=== PATIENT | male | born 1940 | race Caucasian/White ===

== ENCOUNTER → 2020-04-21 | Outpatient (CLI) | payer MEDICARE, OTHER ==
[~2020-04-21] MED LIST: ACET-683 PO; AMLO1TAB24 PO; ASPI81TA26 PO; D 50CAP3 PO; FURO40TA2 PO; ISOVUE-300 61% 50ML VIAL As Ordered ONE; LIDOCAINE 1% MDV 20ML VIAL As Ordered ONE; METO25TA4 PO; MIDAZOLAM INJ 2MG/2ML VIAL (J2250 PER 1MG) As Ordered ONE; fentaNYL 100 MCG/2 ML INJECTION (J3010) As Ordered ONE
--- NOTE | 2020-04-21 16:39 | ROOPDOC ---
[facility] Report Of Operation Report of Operation DATE OF PROCEDURE: 04/21/20 PREPROCEDURE DIAGNOSES: End-stage renal disease with increased pulsatility and bleeding left upper extremity brachial basilic AV fistula POSTPROCEDURE DIAGNOSES: Same PROCEDURE: 1. Ultrasound-guided access left basilic vein 2. Left upper extremity fistulogram and central venogram 3. Angioplasty left basilic vein and subclavian vein pre-existing stent with 8 x 20 cutting balloon and 9 x 40 [place] balloon 4. Angioplasty left subclavian vein pre-existing stent with 10 x 40 conquest balloon 5. Completion venogram SURGEON: Issa Enrique MD ANESTHESIA: Local anesthesia with 3 mL lidocaine. Moderate intravenous conscious sedation with administered by Dr. Enrique. The patient was independently monitored by registered nurse assigned to the Department of radiology using auto mated blood pressure, EKG, and pulse oximetry. The detailed sedation record is permanently stored in the hospital information system. The following is a brief sedation record: Start time 15:42, stop time 16:18, Versed 0.5 mg IV, fentanyl 50 g IV CONTRAST: 38 mL Isovue-300 INDICATION FOR PROCEDURE: This is a very pleasant 80-year-old gentleman with end-stage renal disease who increased pulsatility and bleeding times after dialysis with his left upper extremity brachial basilic AV fistula. Risks benef its alternatives to a fistulogram potential intervention were explained to the patient needs agreeable to proceed. Informed consent was obtained. INTERPRETATION: 1. Ultrasound confirmed the AV anastomosis is widely patent. 2. 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 There is one focal area of stenosis, approximately 70% stenosis distal to one of the aneurysmal segments in the mid upper arm. Proximal to this in the basilic and axillary vein, there is no significant stenosis. There is an 80% stenosis within the pre-existing left subclavian stent, and otherwise the central veins are widely patent. 3. After angioplasty of the subclavian stent and the basilic vein with a 8 x 20 cutting balloon, there was less than 20% residual stenosis in the basilic vein and 60% residual stenosis in the subclavian vein. No extravasation was noted. 4. After angioplasty of both areas with a 9 x 40 [place] balloon, there is widely patent inflow through the basilic vein with no significant residual stenosis in no extravasation, and there was an improvement inflow through the left subclavian vein but still about 30-40% residual stenosis. 5. After angioplasty of the cephalic vein with a 10 x 40 high-pressure conquest balloon at high pressures for 3 minutes, there was less than 20% residual stenosis in the subclavian vein stent with widely patent flow and a marked improvement in thrill in the fistula. Position was noted. REPORT OF OPERATION: The patient was brought to the angiographic suite in stable condition. His left upper extremity was prepped and draped in a sterile fashion. A timeout was performed. Local anesthesia was administered to skin and subcutaneous tissue over the left basilic vein. Ultrasound was used to examine t he AV anastomosis and it was found to be widely patent. We then gained access to the basilic vein antegrade fashion with a microneedle under ultrasound guidance. A wire was passed through this access the needle was removed and a 4 Gambian sheath was placed and flushed with saline. A fistulogram and central venogram were performed. Please interpretation above. A Glidewire was advanced through this access in the central system and the sheath was exchanged for some Gambian sheath and flushed with saline. A Gleich cath was placed over the wire and the wire was exchanged for a 018 wire. We then advanced an 8 x 20 cutting balloon first to cross the subclavian stent in multiple inflations were performed. Contrast injection revealed some improvement inflow with some residual stenosis as described above, but no extravasation. We then angioplasty with the balloon in the basilic vein at the area stenosis, and there is a marked improvement inflow. Still some residual stenosis was present, no extravasation. We then exchange the balloon for 9 x 40 [place] balloon. Both areas had a three-minute inflations, multiple inflations across the subclavian. Following this there was no significant residual stenosis in the basilic vein with a marked rapid improvement inflow, but there is still some residual stenosis in subclavian vein. We exchange the balloon therefore for a 10 x 40 conquest balloon and high-pressure three-minute inflations was performed with a marked improvement inflow through the subclavian vein, no significant residual stenosis, no extravasation, and a marked improvement in thrill in the fistula. This concluded the procedure. A [id number] Prolene suture was placed at the sheath after anesthetizing with local anesthesia, and the suture was secured is the sheath was removed for good hemostasis. Pressure was held for a few minutes and sterile dressings were applied. The patient was then taken to recovery in stable condition. He tolerated the procedure and the sedation well. ESTIMATED BLOOD LOSS: Approximately 5 mL. COMPLICATIONS: None. PLAN: It is okay to use the fistula for dialysis. Okay to resume home diet medications. Would like to see the patient back in 3 months to check his fistula. We appreciate the opportunity to participate in the care of this patient. ISSA ENRIQUE MD Apr 21, 2020 16:39
[2020-04-21 16:45] VITALS: BP 163/63
== END ==
LOC: M IRPRO 14:49
PROVIDERS: ATTEND Surgery Vascular Surgery
DX: T82.590A Other mechanical complication of surgically created arteriovenous fistula, initial encounter (principal); N18.6 End stage renal disease; I12.0 Hypertensive chronic kidney disease with stage 5 chronic kidney disease or end stage renal disease; X58.XXXA Exposure to other specified factors, initial encounter; Z79.82 Long term (current) use of aspirin; Z79.899 Other long term (current) drug therapy; Z99.2 Dependence on renal dialysis
CPT/HCPCS: 36902; 99152; 99153; C1725; C1769; C1887; C1894; J1644; J2250; J3010; Q9967

== ENCOUNTER 2020-10-03 16:45 | Inpatient (IN) | payer MEDICARE, OTHER ==
[~2020-10-03] VITALS: Ht 172.7 cm; Wt 82.8 kg
[~2020-10-03 16:45] MED LIST changes: -ISOVUE-300 61% 50ML VIAL As Ordered ONE; -LIDOCAINE 1% MDV 20ML VIAL As Ordered ONE; -MIDAZOLAM INJ 2MG/2ML VIAL (J2250 PER 1MG) As Ordered ONE; -fentaNYL 100 MCG/2 ML INJECTION (J3010) As Ordered ONE
[2020-10-03] MEDS ORDERED: ROBI1CAP PO (17:15)
[2020-10-03] MEDS ORDERED: MUCI30TA5 PO (17:15)
[2020-10-03 17:26] LABS: VENOUS BASE EXCESS 6.5 (-2.0-2.0); VENOUS HCO3 32.2 MEQ/L (23.0-27.0); VENOUS O2 SATURATION 60.3 % (60.0-80.0); VENOUS PARTIAL PRESSURE CO2 52.5 mmHg (38.0-50.0); VENOUS PARTIAL PRESSURE O2 32.3 mmHg (30.0-50.0); VENOUS PH 7.405 UNITS (7.330-7.430); VENOUS STANDARD HCO3 29.7 MEQ/L; VENOUS TOTAL CO2 33.8 MEQ/L (24.0-28.0)
[2020-10-03 17:29] LABS: BASO % 0.1 % (0.0-1.0); EOS # 0.1 10^3/uL (0.0-0.5); EOS % 0.7 % (0.0-3.0); LYMPH % 8.8 % (24.0-44.0); MEAN CORPUSCULAR HEMOGLOBIN 31.8 pg (27.0-33.0); MEAN CORPUSCULAR VOLUME 102.5 fl (80.0-96.0); MONO % 8.9 % (2.0-8.0); NEUTROPHILS # 9.1 10^3/uL (1.5-8.5); NEUTROPHILS % 81.1 % (36.0-66.0); PLATELET COUNT, AUTOMATED 173 10^3/uL (150-450); RED BLOOD COUNT 2.83 10^6/uL (4.30-6.10); WHITE BLOOD COUNT 11.2 10^3/uL (4.0-10.0)
[2020-10-03] MEDS ORDERED: ALBUTEROL 90 MCG/ACT 8GM HFA INHALER INH ONE (17:30)
--- NOTE | 2020-10-03 17:47 | REP ---
INDICATION: DYSPNEA/COUGH COMPARISON: None. TECHNIQUE: Portable AP view of the chest FINDINGS: Evidence for prior sternotomy and CABG lung lam demonstrate chronic interstitial changes. Basilar atelectasis cannot be excluded. Stent graft overlies the left apex. IMPRESSION: Chronic changes. Possible basilar atelectasis. <Electronically signed by Jonathan Chinchilla > 10/03/20 [id number]
[2020-10-03 17:48] LABS: INR 1.35
[2020-10-03 18:40] LABS: RSV AMPLIFICATION NEGATIVE (NEGATIVE)
[2020-10-03] MEDS ORDERED: cefTRIAXone SOD 1 GM in D5W MINI-BAG PLUS 50 ML IV ONE (18:50)
[2020-10-03] MEDS ORDERED: AZITHROMYCIN INJ 500 MG, VIAL MATE ADAPTER 1 EACH in NS 250 ML IV ONE (18:50)
[2020-10-03] MEDS ORDERED: TUMS500C PO (19:37)
[2020-10-03] MEDS ORDERED: [UNRECOGNIZED DRUG - CODE] PO (19:37)
[2020-10-03] MEDS ORDERED: ROBILIQ13 PO (19:38)
[2020-10-03] MEDS ORDERED: IPRATROPIUM 0.5MG/ALBUTEROL 2.5MG INH SOL UD 3ML (DUONEB) INH PRN (20:15)
[2020-10-03 20:22] LABS: ALBUMIN 3.4 GM/DL (3.2-5.2); BILIRUBIN,DIRECT 0.3 MG/DL (0.0-0.2); BILIRUBIN,TOTAL 0.9 MG/DL (0.2-1.0); CALCIUM LEVEL 8.3 MG/DL (8.8-10.2); CK-MB VALUE MASS 1.4 NG/ML (<3.6); CREATININE FOR GFR 3.54 MG/DL (0.70-1.30); GLOMERULAR FILTRATION RATE 17.7 (>35); MB/CK RELATIVE INDEX 1.26 (< OR =4); POTASSIUM SERUM 3.3 MEQ/L (3.5-5.1); TOTAL PROTEIN 7.6 GM/DL (6.4-8.2); TROPONIN I 0.03 NG/ML (< 0.10)
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
[2020-10-03] MEDS: HumaLOG INSULIN (NovoLOG) PER UNIT SC SCH (21:00)
[2020-10-03] MEDS ORDERED: GLUCOSE 4GM CHEW TABLET PO PRN (21:25)
[2020-10-03] MEDS ORDERED: GLUCAGON INJ 1MG VIAL SC PRN (21:25)
[2020-10-03] MEDS ORDERED: DEXTROSE 50% 50 ML SYRINGE IV PRN (21:25)
[2020-10-03] MEDS: METOPROLOL TART 25 MG TABLET PO SCH (22:48)
[2020-10-03] MEDS: HEPARIN SOD (PORCINE) 5000UNITS/ML 1ML VIAL/SYRINGE SC SCH (22:49)
[2020-10-03 23:31] VITALS: O2SAT 94
[2020-10-04] VITALS (7 sets, daily range): BP systolic 102–104; BP diastolic 58–92; O2SAT 92–94
[2020-10-04] MEDS: IPRATROPIUM 0.5MG/ALBUTEROL 2.5MG INH SOL UD 3ML (DUONEB) INH SCH ×7 (03:12→23:52)
[2020-10-04] MEDS: HEPARIN SOD (PORCINE) 5000UNITS/ML 1ML VIAL/SYRINGE SC SCH ×3 (05:18→20:37)
[2020-10-04 06:40] LABS: BASO % 0.1 % (0.0-1.0); EOS # 0.1 10^3/uL (0.0-0.5); EOS % 0.9 % (0.0-3.0); HEMATOCRIT 25.3 % (42.0-52.0); HEMOGLOBIN 7.9 g/dl (13.5-17.5); LYMPH % 11.2 % (24.0-44.0); MEAN CORPUSCULAR HEMOGLOBIN 32.2 pg (27.0-33.0); MEAN CORPUSCULAR HGB CONC 31.2 g/dl (32.0-36.5); MEAN CORPUSCULAR VOLUME 103.3 fl (80.0-96.0); MONO # 0.9 10^3/uL (0.0-0.8); NEUTROPHILS # 6.9 10^3/uL (1.5-8.5); NEUTROPHILS % 77.2 % (36.0-66.0); PLATELET COUNT, AUTOMATED 148 10^3/uL (150-450); RED BLOOD COUNT 2.45 10^6/uL (4.30-6.10)
[2020-10-04 07:08] LABS: CALCIUM LEVEL 7.9 MG/DL (8.8-10.2); CREATININE FOR GFR 4.31 MG/DL (0.70-1.30); GLOMERULAR FILTRATION RATE 14.1 (>35); MAGNESIUM LEVEL 2.1 MG/DL (1.8-2.4); PHOSPHORUS LEVEL 2.6 MG/DL (2.5-4.9); POTASSIUM SERUM 2.9 MEQ/L (3.5-5.1)
[2020-10-04] MEDS: HumaLOG INSULIN (NovoLOG) PER UNIT SC SCH ×5 (07:30→21:48)
[2020-10-04] MEDS: METOPROLOL TART 25 MG TABLET PO SCH ×2 (08:12→20:36)
[2020-10-04] MEDS: ASPIRIN 81MG ENTERIC TABLET PO SCH (08:29)
[2020-10-04] MEDS: CALCIUM CARBONATE 500 MG CHEW U/D PO SCH ×3 (08:29→18:20)
[2020-10-04] MEDS ORDERED: POTASSIUM CHLORIDE 10 MEQ SR TABLET PO ONE (08:30)
[2020-10-04] MEDS: DOXYCYCLINE HYCLATE 100 MG in D5W MINI-BAG PLUS 100 ML IV SCH ×2 (08:30→21:47)
[2020-10-04] MEDS ORDERED: PREVNAR 13 VACCINE SYRINGE IM ONE (09:00)
[2020-10-04] MEDS ORDERED: predniSONE 20 MG TAB PO SCH (09:00)
[2020-10-04] MEDS ORDERED: FUROSEMIDE 40 MG TAB PO SCH (09:00)
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
--- NOTE | 2020-10-04 16:29 | IPNPDOC ---
Date Seen The patient was seen on 10/04/20. Progress Note SUBJECTIVE: No acute events overnight. Wheezy this AM, started on IV steroids for COPD flare. Denies increased shortness of breath, chest pain, fevers or chills. Discussed with nephrology. OBJECTIVE: PHYSICAL EXAMINATION: VITAL SIGNS: see below GENERAL: Alert, comfortable, in no acute distress HEENT: Normocephalic, atraumatic, PERRLA, sclera anicteric, conjunctiva clear, moist oral mucosa NECK: Supple, trachea midline, no lymphadenopathy, no elevated JVD appreciated CARDIOVASCULAR: Regular rate and rhythm, normal S1 and S2. No murmurs, rubs, or gallops RESPIRATORY: Lung sounds are decreased throughout with diffuse end expiratory wheezing and scattered rhonchi. ABDOMEN: Soft, nontender, nondistended, bowel sounds present, no masses or hepatosplenomegaly appreciated EXTREMITIES: No cyanosis or edema. Pulses 2+/4 in bilateral upper and lower extremities SKIN: Red raised lesions on the right frontal region of the scalp which is nontender, cool to touch, and without any surround erythema or drainage. Skin over bilateral shins is very dry and flaky. NEUROLOGIC: Alert and oriented x3 to person, place and time. No focal deficits appreciated PSYCHIATRIC: Mood and affect appropriate LABORATORY DATA: See below. IMAGING: CXR : Evidence for prior sternotomy and CABG lung lam demonstrate chronic interstitial changes. basilar atelectasis cannot be excluded. Stent graft overlies the left apex. MICROBIOLOGY: Please see below. ASSESSMENT: 80 year old male with PMHx of COPD with recurrent PNA, CAD s/p CABG, ESRD on HD, HTN, diabetes mellitus, atriall fibrillation, pacemaker placement, and blindness, presents with 1 week history of worsening congestion, productive cough, chills, and shortness of breath concerning for pneumonia with exacerbation of COPD. PLAN: Acute hypoxic respiratory failure secondary to ? community aquired pneumonia vs COPD exacerbation vs decompensated HF - CXR shows atelectasis which could represent PNA. Procalcitonin elevated at >2. - Elevated BNP could be attributed to ESRD, no effusions on CXR, and patient does not appear to be volume overloaded on exam so CHF is less likely - Abx coverage for CAP with ceftriaxone and doxycycline. Sputum culture ordered, blood cultures x2 pending. - Check urine legionella ag and strep pneumonia ag - Duonebs q4h while awake with additional PRN doses available. Incentive spirometry and acapella. COPD with acute exacerbation - Increased wheezing today - Switched from PO prednisone to IV methylprednisolone 60 mg IV Q12 H, c/w nebulizers ATC and PRN - Recommend o/p testing HFpEF with ? exacerbation -BNP >82K, no prior ones on file to compare. -No prior echocardiogram on file -Stopped lasix as patient is HD/ESRD, ordered echocardiogram- f/u report and involve cards if necessary -Trop neg -C/w BB BID ESRD on HD - S/p HD 10/03/09 - Follows [facility] schedule - Nephrology consulted , case discussed with Dr. Caballero today Acute hypokalemia -Replaced 50 mEq -Repeat BMP this evening, replace PRN -Daily labs HTN - continue home medications Diabetes mellitus - controlled with HD, not on any home medications - consistent carb diet, SSI ACHS while inpatient - hypoglycemic protocol Skin lesion on right temporal scalp - pt has history of skin cancer with new lesion, needs to establish with o utpatient local production corrugator for biopsy/excision DVT prophylaxis: SC heparin DISPOSITION: Inpatient admission. Nephrology consulted. Will need PT/OT, plan is for home at discharge VS, I&O, 24H, Fishbone Vital Signs/I&O Vital Signs Date Time Temp Pulse Resp B/P (MAP) Pulse Ox O2 Delivery O2 Flow Rate FiO2 10/04/20 15:45 98.3 65 19 104/59 (74) 100 Nasal Cannula 2.0 10/04/20 03:13 36 I&O- Last 24 Hours up to 6 AM 10/04/20 06:00 Intake Total 905 ml Output Total 0 ml Balance 905 ml Laboratory Data 24H LABS Laboratory Tests 2 10/03/20 17:16: Prothrombin Time 17.0H, Prothromb Time International Ratio 1.35, Blood Gas Bicarbonate Standard 29.7, Venous Blood pH 7.405, Venous Blood Partial Pressure CO2 52.5H, Venous Blood Partial Pressure O2 32.3, Venous Blood Total Carbon Dioxide 33.8H, Venous Blood HCO3 32.2H, Venous Blood Oxygen Saturation 60.3, Venous Blood Base Excess 6.5H, Anion Gap 7L, Glomerular Filtration Rate 17.7L, Lactic Acid Level 1.9, Calcium Level 8.3L, Total Bilirubin 0.9, Direct Bilirubin 0.3H, Aspartate Amino Transf (AST/SGOT) 13, Alanine Aminotransferase (ALT/SGPT) 11L, Alkaline Phosphatase 93, Total Creatine Kinase 111, Creatine Kinase MB 1.4, Creatine Kinase MB Relative Index 1.26, Troponin I 0.03, EB-Tax-M-Type Natriuretic Peptide 71088R, Total Protein 7.6, Albumin 3.4, Albumin/Globulin Ratio 0.8 10/03/20 17:17: Immature Granulocyte % (Auto) 0.4, Neutrophils (%) (Auto) 81.1H, Lymphocytes (%) (Auto) 8.8L, Monocytes (%) (Auto) 8.9H, Eosinophils (%) (Auto) 0.7, Basophils (%) (Auto) 0.1, Neutrophils # (Auto) 9.1H, Lymphocytes # (Auto) 1.0L, Monocytes # (Auto) 1.0H, Eosinophils # (Auto) 0.1, Basophils # (Auto) 0.0, Nucleated Red Blood Cells % (auto) 0.0 10/03/20 17:39: Coronavirus (COVID-19)(PCR) NEGATIVE, Influenza Type A (RT-PCR) NEGATIVE, Influenza Type B (RT-PCR) NEGATIVE, Respiratory Syncytial Virus (PCR) NEGATIVE 10/03/20 21:02: Procalcitonin 2.53 10/03/20 22:25: Bedside Glucose (Misc Panel) 171H 10/04/20 05:53: Immature Granulocyte % (Auto) 0.6, Neutrophils (%) (Auto) 77.2H, Lymphocytes (%) (Auto) 11.2L, Monocytes (%) (Auto) 10.0H, Eosinophils (%) (Auto) 0.9, Basophils (%) (Auto) 0.1, Neutrophils # (Auto) 6.9, Lymphocytes # (Auto) 1.0L, Monocytes # (Auto) 0.9H, Eosinophils # (Auto) 0.1, Basophils # (Auto) 0.0, Nucleated Red Blood Cells % (auto) 0.0, Anion Gap 9, Glomerular Filtration Rate 14.1L, Calcium Level 7.9L, Phosphorus Level 2.6, Magnesium Level 2.1 CBC/BMP Laboratory Tests 10/03/20 17:16 10/03/20 17:17 10/04/20 05:53 Microbiology Microbiology 10/04/20 Gram Stain - Final, Resulted 10/04/20 Sputum Culture, Resulted Pending 10/03/20 Blood Culture, Received Pending 10/03/20 Blood Culture, Received Pending Current Medications Current Medications Medications (Trade) Dose Ordered Sig/Elvin Route PRN Reason Start Time Stop Time Status Last Admin Dose Admin Acetaminophen (Tylenol Tab) 650 mg Q4H PRN PO PAIN OR FEVER 10/03/20 20:15 Albuterol/ Ipratropium (Duoneb (Ipr 0.5mg/Alb 2.5mg)) 3 ml Q2H PRN INH WHEEZING 10/03/20 20:15 Albuterol/ Ipratropium (Duoneb (Ipr 0.5mg/Alb 2.5mg)) 3 ml RQ4H INH 10/04/20 00:00 10/04/20 11:26 Amlodipine Besylate (Norvasc) 2.5 mg QHS PO 10/03/20 21:00 10/04/20 11:46 DC 10/03/20 22:48 Aspirin (Ecotrin) 81 mg DAILY PO 10/04/20 09:00 10/04/20 08:29 Calcium Carbonate (Tums) 500 mg PC PO 10/04/20 08:30 10/04/20 08:29 Ceftriaxone Sodium 1 gm/ Dextrose 50 ml @ 100 mls/hr Q24H IV 10/04/20 20:00 Dextrose (Dextrose 50%) 25 ml ASDIRECTED PRN IV SEE LABEL COMMENTS 10/03/20 21:25 Doxycycline Hyclate 100 mg/ Dextrose 100 ml @ 100 mls/hr Q12H IV 10/04/20 08:00 10/04/20 08:30 Furosemide (Lasix) 40 mg BID@0900,1700 PO 10/04/20 09:00 10/04/20 08:22 DC Glucagon (Glucagon) 1 mg ASDIRECTED PRN SC SEE LABEL COMMENTS 10/03/20 21:25 Glucose (Glucose) 16 GM ASDIRECTED PRN PO SEE LABEL COMMENTS 10/03/20 21:25 Heparin Sodium (Porcine) (Heparin) 5,000 units Q8H SC 10/03/20 22:00 10/04/20 16:08 Home Med (Med Rec Complete!) ASDIRECTED XX 10/03/20 19:40 10/03/20 19:40 DC Insulin Human Lispro (HumaLOG INSULIN) SEE PROTOCOL TABLE AC SC 10/04/20 07:30 10/04/20 07:30 Insulin Human Lispro (HumaLOG INSULIN) SEE PROTOCOL TABLE QHS SC 10/03/20 21:00 Methylprednisolone (SOLUmedrol) 60 mg Q12H IV 10/04/20 21:00 Metoprolol Tartrate (Lopressor) 25 mg BID PO 10/03/20 21:00 10/03/20 22:48 Prednisone (Deltasone) 40 mg DAILY PO 10/04/20 09:00 10/04/20 09:26 DC 10/04/20 08:29 Allergies Coded Allergies: No Known Allergies (Unverified , 04/13/20) Marjan Pendleton MD Oct 04, 2020 16:29
[2020-10-04 18:47] LABS: CALCIUM LEVEL 8.3 MG/DL (8.8-10.2); CREATININE FOR GFR 2.37 MG/DL (0.70-1.30); GLOMERULAR FILTRATION RATE 28.1 (>35); POTASSIUM SERUM 4.3 MEQ/L (3.5-5.1)
[2020-10-04] MEDS ORDERED: cefTRIAXone SOD 1 GM in D5W MINI-BAG PLUS 50 ML IV SCH (20:00)
[2020-10-04] MEDS: methylPREDNISolone 125MG 2ML VIAL IV SCH (20:35)
--- NOTE | 2020-10-05 03:09 | ECGEPIP ---
[facility] - ED Test Date: 2020-10-03 Pat Name: OSCAR RIVERA Department: Room: [place] [address] Gender: Male [employer]: ty : 1940 Requested By: ULISES Pan Order Number: [id number] Reading MD: Ulises Alfred Measurements Intervals [place] Rate: 72 P: AL: QRS: 40 QRSD: 92 T: -79 QT: 432 QTc: 473 Interpretive Statements Accelerated Junctional rhythm ST & Marked T wave abnormality, consider anterolateral ischemia Prolonged QTc interval Comparison tracing not on file Baseline artifact Electronically Signed on 10-05-2020 3:08:41 EST by Ulises Alfred
[2020-10-05] MEDS: IPRATROPIUM 0.5MG/ALBUTEROL 2.5MG INH SOL UD 3ML (DUONEB) INH SCH ×6 (04:10→23:23)
[2020-10-05 06:00] VITALS: BP 112/60
[2020-10-05] MEDS: HEPARIN SOD (PORCINE) 5000UNITS/ML 1ML VIAL/SYRINGE SC SCH ×3 (06:30→21:28)
[2020-10-05] MEDS: ACETAMINOPHEN TAB 650MG DOSE (2X325MG) PO PRN ×2 (06:30→21:29)
[2020-10-05] MEDS: METOPROLOL TART 25 MG TABLET PO SCH ×2 (06:31→21:00)
[2020-10-05] MEDS: CALCIUM CARBONATE 500 MG CHEW U/D PO SCH ×3 (06:31→17:31)
[2020-10-05] MEDS: ASPIRIN 81MG ENTERIC TABLET PO SCH (06:31)
[2020-10-05 07:07] LABS: HEMATOCRIT 27.1 % (42.0-52.0); HEMOGLOBIN 8.3 g/dl (13.5-17.5); MEAN CORPUSCULAR HEMOGLOBIN 31.9 pg (27.0-33.0); MEAN CORPUSCULAR HGB CONC 30.6 g/dl (32.0-36.5); MEAN CORPUSCULAR VOLUME 104.2 fl (80.0-96.0); PLATELET COUNT, AUTOMATED 155 10^3/uL (150-450); WHITE BLOOD COUNT 7.3 10^3/uL (4.0-10.0)
[2020-10-05 07:35] LABS: ALBUMIN 3.3 GM/DL (3.2-5.2); BILIRUBIN,TOTAL 0.9 MG/DL (0.2-1.0); CALCIUM LEVEL 8.7 MG/DL (8.8-10.2); CREATININE FOR GFR 3.56 MG/DL (0.70-1.30); GLOMERULAR FILTRATION RATE 17.6 (>35); POTASSIUM SERUM 4.1 MEQ/L (3.5-5.1); TOTAL PROTEIN 7.6 GM/DL (6.4-8.2)
[2020-10-05] MEDS: HumaLOG INSULIN (NovoLOG) PER UNIT SC SCH ×4 (08:54→21:00)
[2020-10-05] MEDS: DOXYCYCLINE HYCLATE 100 MG in D5W MINI-BAG PLUS 100 ML IV SCH (08:58)
[2020-10-05] MEDS: methylPREDNISolone 125MG 2ML VIAL IV SCH ×2 (08:58→21:29)
[2020-10-05] MEDS ORDERED: LEVEMIR (INSULIN DETEMIR) 1 UNITS/0.01ML SC SCH (09:00)
[2020-10-05] MEDS: DARBEPOETIN 100 MCG/0.5 ML *DIALYSIS* SYRINGE (J0882) IV SCH (12:26)
[2020-10-05 15:03] VITALS: BP 109/61
--- NOTE | 2020-10-05 15:46 | IPNPDOC ---
Date Seen The patient was seen on 10/05/20. Progress Note SUBJECTIVE: No acute events overnight. Wheezing improved, S/p HD 10/04 and likely to go again today. Feels lethargic this AM but labs do not look worsened. Denies increased shortness of breath, chest pain, fevers or chills. Discussed with nephrology. OBJECTIVE: PHYSICAL EXAMINATION: VITAL SIGNS: see below GENERAL: Alert, comfortable, in no acute distress HEENT: Normocephalic, atraumatic, PERRLA, sclera anicteric, conjunctiva clear, moist oral mucosa NECK: Supple, trachea midline, no lymphadenopathy, no elevated JVD appreciated CARDIOVASCULAR: Regular rate and rhythm, normal S1 and S2. No murmurs, rubs, or gallops RESPIRATORY: Lung sounds are decreased throughout, no wheezing today on exam- improving ABDOMEN: Soft, nontender, nondistended, bowel sounds present, no masses or hepat osplenomegaly appreciated EXTREMITIES: No cyanosis or edema. Pulses 2+/4 in bilateral upper and lower extremities SKIN: Red raised lesions on the right frontal region of the scalp which is nontender, cool to touch, and without any surround erythema or drainage. Skin over bilateral shins is very dry and flaky. NEUROLOGIC: Alert and oriented x3 to person, place and time. No focal deficits appreciated PSYCHIATRIC: Mood and affect appropriate LABORATORY DATA: See below. IMAGING: CXR : Evidence for prior sternotomy and CABG lung lam demonstrate chronic interstitial changes. basilar atelectasis cannot be excluded. Stent graft overlies the left apex. MICROBIOLOGY: Please see below. ASSESSMENT: 80 year old male with PMHx of COPD with recurrent PNA, CAD s/p CABG, ESRD on HD, HTN, diabetes mellitus, atriall fibrillation, pacemaker placement, and blindness, presents with 1 week history of worsening congestion, productive cough, chills, and shortness of breath concerning for pneumonia with exacerbation of COPD. PLAN: Acute hypoxic respiratory failure likely MF to community aquired pneumonia vs COPD exacerbation vs decompensated HF - CXR shows atelectasis which could represent PNA. Procalcitonin elevated at >2. - Elevated BNP could be attributed to ESRD, no effusions on CXR, and patient does not appear to be volume overloaded on exam so CHF is less likely - Abx coverage for CAP with ceftriaxone and doxycycline. Sputum culture ordered, blood cultures x2 pending. - Check urine legionella ag and strep pneumonia ag - Duonebs q4h while awake with additional PRN doses available. Incentive spirometry and acapella. COPD with acute exacerbation - Improved breathing, no wheezing on exam today - IV methylprednisolone 60 mg IV Q12 H, likely can deescalate on 10/06/20 if continues to show improvement, c/w nebulizers ATC and PRN - Recommend o/p testing HFpEF with ? exacerbation -S/p back to back HD sessions -BNP >82K, no prior ones on file to compare. -F/u echocardiogram -Stopped lasix as patient is HD/ESRD -Trop neg -C/w BB BID ESRD on HD - S/p HD 10/04/09, likely to go again today - Follows [facility] schedule - Nephrology consulted , case discussed with Dr. Caballero Acute hypokalemia -K wnl this AM -Repeat BMP this evening, replace PRN -Daily labs HTN - continue home medications Diabetes mellitus -BS uncontrolled -Started on levemir 8 U QAM - consistent carb diet, SSI ACHS while inpatient - hypoglycemic protocol Skin lesion on right temporal scalp - pt has history of skin cancer with new lesion, needs to establish with outpatient local stripper printed circuit boards for biopsy/excision DVT prophylaxis: SC heparin DISPOSITION: Inpatient status, nephrology consulted. PT/OT to see. Plan is likely home at discharge. VS, I&O, 24H, Fishbone Vital Signs/I&O Vital Signs Date Time Temp Pulse Resp B/P (MAP) Pulse Ox O2 Delivery O2 Flow Rate FiO2 10/05/20 07:46 3.0 10/05/20 06:31 60 112/60 10/05/20 06:00 98.4 20 96 Nasal Cannula 10/04/20 19:55 36 I&O- Last 24 Hours up to 6 AM 10/05/20 06:00 Intake Total 1250 ml Output Total 3020 ml Balance -1770 ml Laboratory Data 24H LABS Laboratory Tests 2 10/04/20 16:28: Bedside Glucose (Misc Panel) 167H 10/04/20 17:39: Anion Gap 5L, Glomerular Filtration Rate 28.1L, Calcium Level 8.3L 10/04/20 20:35: Bedside Glucose (Misc Panel) 259H 10/05/20 06:45: Anion Gap 11, Glomerular Filtration Rate 17.6L, Calcium Level 8.7L, Nucleated Red Blood Cells % (auto) 0.0, Total Bilirubin 0.9, Aspartate Amino Transf (AST/SGOT) 10, Alanine Aminotransferase (ALT/SGPT) 10L, Alkaline Phosphatase 84, Total Protein 7.6, Albumin 3.3, Albumin/Globulin Ratio 0.8 10/05/20 14:28: Bedside Glucose (Misc Panel) 146H CBC/BMP Laboratory Tests 10/04/20 17:39 10/05/20 06:45 Microbiology Microbiology 10/04/20 Gram Stain - Final, Resulted 10/04/20 Sputum Culture - Preliminary, Resulted Yeast Like Organism 10/03/20 Blood Culture - Preliminary, Resulted No growth after 24 hours . All specim... 10/03/20 Blood Culture - Preliminary, Resulted No growth after 24 hours . All specim... Current Medications Current Medications Medications (Trade) Dose Ordered Sig/Elvin Route PRN Reason Start Time Stop Time Status Last Admin Dose Admin Acetaminophen (Tylenol Tab) 650 mg Q4H PRN PO PAIN OR FEVER 10/03/20 20:15 10/05/20 06:30 Albuterol/ Ipratropium (Duoneb (Ipr 0.5mg/Alb 2.5mg)) 3 ml Q2H PRN INH WHEEZING 10/03/20 20:15 Albuterol/ Ipratropium (Duoneb (Ipr 0.5mg/Alb 2.5mg)) 3 ml RQ4H INH 10/04/20 00:00 10/05/20 15:18 Amlodipine Besylate (Norvasc) 2.5 mg QHS PO 10/03/20 21:00 10/04/20 11:46 DC 10/03/20 22:48 Aspirin (Ecotrin) 81 mg DAILY PO 10/04/20 09:00 10/05/20 06:31 Calcium Carbonate (Tums) 500 mg PC PO 10/04/20 08:30 10/05/20 14:36 Ceftriaxone Sodium 1 gm/ Dextrose 50 ml @ 100 mls/hr Q24H IV 10/04/20 20:00 10/05/20 09:33 DC 10/04/20 20:35 Darbepoetin Rikki (Aranesp (Dialysis Use)) 100 mcg HD IV 10/05/20 11:55 10/05/20 12:26 Dextrose (Dextrose 50%) 25 ml ASDIRECTED PRN IV SEE LABEL COMMENTS 10/03/20 21:25 Doxycycline Hyclate (Vibramycin) 100 mg BID@0600,2000 PO 10/05/20 20:00 Doxycycline Hyclate 100 mg/ Dextrose 100 ml @ 100 mls/hr Q12H IV 10/04/20 08:00 10/05/20 09:33 DC 10/05/20 08:58 Furosemide (Lasix) 40 mg BID@0900,1700 PO 10/04/20 09:00 10/04/20 08:22 DC Glucagon (Glucagon) 1 mg ASDIRECTED PRN SC SEE LABEL COMMENTS 10/03/20 21:25 Glucose (Glucose) 16 GM ASDIRECTED PRN PO SEE LABEL COMMENTS 10/03/20 21:25 Heparin Sodium (Porcine) (Heparin) 5,000 units Q8H SC 10/03/20 22:00 10/05/20 14:36 Home Med (Med Rec Complete!) ASDIRECTED XX 10/03/20 19:40 10/03/20 19:40 DC Insulin Detemir (Levemir Insulin) 8 units QAM SC 10/05/20 09:00 10/05/20 08:54 Insulin Human Lispro (HumaLOG INSULIN) SEE PROTOCOL TABLE AC SC 10/04/20 07:30 10/05/20 08:54 Insulin Human Lispro (HumaLOG INSULIN) SEE PROTOCOL TABLE QHS MO 10/03/20 21:00 10/04/20 21:48 Methylprednisolone (SOLUmedrol) 60 mg Q12H IV 10/04/20 21:00 10/05/20 08:58 Metoprolol Tartrate (Lopressor) 25 mg BID PO 10/03/20 21:00 10/03/20 22:48 Prednisone (Deltasone) 40 mg DAILY PO 10/04/20 09:00 10/04/20 09:26 DC 10/04/20 08:29 Allergies Coded Allergies: No Known Allergies (Unverified , 04/13/20) Marjan Pendleton MD Oct 05, 2020 15:46
[2020-10-05] MEDS: ONDANSETRON 4 MG TAB PO SCH (17:31)
[2020-10-05 20:01] VITALS: O2SAT 94
[2020-10-05 21:00] VITALS: O2SAT 93
[2020-10-05] MEDS: DOXYCYCLINE HYCLATE 100MG TABLET PO SCH (21:30)
[2020-10-05 22:00] VITALS: BP 104/62
[2020-10-06] MEDS: IPRATROPIUM 0.5MG/ALBUTEROL 2.5MG INH SOL UD 3ML (DUONEB) INH SCH ×5 (03:59→20:52)
[2020-10-06 06:00] VITALS: BP 115/84
[2020-10-06 06:23] LABS: HEMATOCRIT 30.4 % (42.0-52.0); HEMOGLOBIN 9.3 g/dl (13.5-17.5); MEAN CORPUSCULAR HEMOGLOBIN 32.2 pg (27.0-33.0); MEAN CORPUSCULAR HGB CONC 30.6 g/dl (32.0-36.5); MEAN CORPUSCULAR VOLUME 105.2 fl (80.0-96.0); PLATELET COUNT, AUTOMATED 213 10^3/uL (150-450); RED BLOOD COUNT 2.89 10^6/uL (4.30-6.10); WHITE BLOOD COUNT 12.1 10^3/uL (4.0-10.0)
[2020-10-06] MEDS: HEPARIN SOD (PORCINE) 5000UNITS/ML 1ML VIAL/SYRINGE SC SCH ×3 (06:43→21:31)
[2020-10-06 06:44] LABS: ALBUMIN 3.5 GM/DL (3.2-5.2); BILIRUBIN,TOTAL 0.5 MG/DL (0.2-1.0); CALCIUM LEVEL 9.2 MG/DL (8.8-10.2); CREATININE FOR GFR 3.49 MG/DL (0.70-1.30); POTASSIUM SERUM 4.6 MEQ/L (3.5-5.1); TOTAL PROTEIN 7.8 GM/DL (6.4-8.2)
[2020-10-06] MEDS: DOXYCYCLINE HYCLATE 100MG TABLET PO SCH (06:44)
[2020-10-06] MEDS: ONDANSETRON 4 MG TAB PO SCH ×4 (06:44→18:14)
[2020-10-06] MEDS: ASPIRIN 81MG ENTERIC TABLET PO SCH (08:06)
[2020-10-06] MEDS: CALCIUM CARBONATE 500 MG CHEW U/D PO SCH ×3 (08:06→18:14)
[2020-10-06] MEDS: METOPROLOL TART 25 MG TABLET PO SCH ×2 (08:07→21:31)
[2020-10-06] MEDS: methylPREDNISolone 125MG 2ML VIAL IV SCH ×3 (08:07→19:29)
[2020-10-06] MEDS: HumaLOG INSULIN (NovoLOG) PER UNIT SC SCH ×4 (08:08→21:00)
--- NOTE | 2020-10-06 08:10 | IPN ---
PROGRESS NOTE DATE: 10/05/2020 SUBJECTIVE: Mr. Jackson is seen this morning on his bedside. He is sitting in the chair today and reports feeling much better. He was dialyzed yesterday and we took off about 3 liters of fluid with dialysis yesterday. His cough is still persistent, but much improved. His dyspnea has improved and he denies any fever or chills. He has no nausea or vomiting. PHYSICAL EXAMINATION: VITALS: Temperature 98.4 degrees Fahrenheit, heart rate 60 per minute, respiratory rate 20 per minute, blood pressure 112/60 mmHg and oxygen saturation 96%. HEENT: Head atraumatic. Neck supple and JVD is improved, but still elevated. LUNGS: Bibasilar rales, much improved compared to yesterday. HEART: Sounds are irregular in rhythm. ABDOMEN: Soft and nontender. Bowel sounds are normal. EXTREMITIES: Without any cyanosis or clubbing. AV fistula on left arm is patent. LABORATORY DATA: Today's labs show WBC 7.3, hemoglobin 8.3, hematocrit 27, platelets 155,000. Sodium 135, potassium 4.1, CO2 23, BUN 26, creatinine 3.56. Calcium level 8.7. PROBLEMS: 1. Shortness of breath and cough: Most likely related to a combination of chronic lung disease and volume overload. 3 liters of fluid was removed yesterday with dialysis and volume status has improved significantly. Will plan to remove another 2 liters today. 2. End-stage renal disease: Patient is regularly dialyzed on Friday, and Friday schedule. Yesterday he had an extra dialysis due to volume overload. He will be dialyzed again today. 3. Anemia: His anemia is related to end-stage renal disease. At this point, he does not need any emergent transfusion, but we will monitor closely and give him one dose of Aranesp 100 mcg today.
--- NOTE | 2020-10-06 08:44 | REP ---
INDICATION: incr SOB COMPARISON: 10/03/2020 TECHNIQUE: PA and lateral. FINDINGS: Mediastinum is stable. Lower lobe airspace disease with possible small pleural reactions are suspected. No pneumothorax. Skeletal structures stable. IMPRESSION: Lower lobe airspace disease and small pleural reactions suggested. <Electronically signed by Jonathan Chinchilla > 10/06/20 0838
[2020-10-06] MEDS: LEVEMIR (INSULIN DETEMIR) 1 UNITS/0.01ML SC SCH (09:07)
[2020-10-06 10:05] LABS: ABG BASE EXCESS -4.4 (-2.0-2.0); ABG HCO3 20.4 MEQ/L (22.0-26.0); ABG O2 SATURATION 98.2 % (95.0-99.0); ABG PARTIAL PRESSURE CO2 36.5 mmHg (35.0-45.0); ABG PARTIAL PRESSURE O2 110.6 mmHg (75.0-100.0); ABG STANDARD HCO3 20.8 MEQ/L (22.0-26.0); ABG TOTAL CO2 21.6 MEQ/L (23.0-31.0); ABG pH (ARTERIAL) 7.366 UNITS (7.350-7.450)
[2020-10-06 10:20] VITALS: BP 116/57
[2020-10-06 10:45] LABS: TROPONIN I 0.04 NG/ML (< 0.10)
--- NOTE | 2020-10-06 11:41 | ECHO ---
DATE OF PROCEDURE: 10/04/2020 Age: 80 Gender: Male Height: 68 inches Weight: 185 pounds Body surface area: 1.98 m2 PATIENT LOCATION: Inpatient, Room 5135. REFERRING PHYSICIAN: Meseret Caballero M.D. INDICATION: Heart failure. MEASUREMENTS: 2D Measurements: RV 4.4 cm LV 5.3 cm Septum 1.3 cm Posterior wall 1.3 cm Aortic Root 3.6 cm LA 4.9 cm LVEF 55-65% Doppler Measurements: AV 1.43 m/s LVOT 0.63 m/s MV-E 135 Early mitral deceleration time 156 msec E prime medial 7.9, E prime lateral 10.2 Average E/E prime ratio 14.9/PCWP 20.4 mmHg PV 0.6 m/s Pulmonary artery acceleration time 92 msec RVSP at least 49 mmHg IVC Could not be visualized COMMENTS: Underlying atrial fibrillation/flutter with consistent ventricular paced rhythm. Paced QRS complexes with LBBB configuration. Somewhat technically challenging study in light of the patients body habitus, but diagnostically useful information was still obtained. M-mode and two-dimensional echocardiography was performed with pulse, continuous wave, color flow, and tissue Doppler studies. Mild symmetrical left ventricular hypertrophy with septal wall motion abnormality due to right ventricle pacing, yet preserved global resting systolic function. Moderately dilated left atrium with elevated estimated mean left atrial pressure. At least mildly dilated right ventricle with normal wall motion. Doppler estimated pulmonary arterial pressure would be at least moderately severely increased. Moderately dilated right atrium, but could not visualize his inferior vena cava to further estimate central venous pressure (we estimated his right ventricle systolic pressure using a standard of 10 mmHg for central venous pressure). Normal aortic dimensions. Mild aortic valvular sclerosis with adequate cusp separation, but premature cusp closure suggestive of a reduced forward stroke volume. No evidence of aortic insufficiency. Moderate degenerative changes of the mitral valve apparatus with adequate leaflet excursion and no posterior systolic buckling. No inflow tract obstruction, but at least mild and possibly moderate insufficiency. Normal appearing tricuspid valve with moderate insufficiency. Pacing lead could be visualized traversing right heart structures, but no separate intracardiac mass. No pericardial effusion. MTDD
[2020-10-06 14:00] VITALS: BP 112/55
--- NOTE | 2020-10-06 14:21 | IPNPDOC ---
Date Seen The patient was seen on 10/06/20. Progress Note SUBJECTIVE: Increased SOB this AM, ABG showed pH wnl, O2 adequate. 90% on 4 L NC, increased over 24 hours. HAs had three days of HD, no s/s of worsening fluid overload. Repeat CXR now worsened. Increased methylprednisolone as he sounds increasingly tight, wheezy. Witnessed possible apneic episodes this AM during exam. Also complaining of increased chest tightness at times, pleuritic pain with coughing and deep breathing. Denies chest pain, fevers or chills. OBJECTIVE: PHYSICAL EXAMINATION: VITAL SIGNS: see below GENERAL: appeared more SOB this AM, lethargic but still Ox3 HEENT: Normocephalic, atraumatic, PERRLA, sclera anicteric, conjunctiva clear, moist oral mucosa NECK: Supple, trachea midline, no lymphadenopathy, no elevated JVD appreciated CARDIOVASCULAR: Regular rate and rhythm, normal S1 and S2. No murmurs, rubs, or gallops RESPIRATORY: Wheezing this AM, decreased breath sounds b/l. No crackles, rhonchi. ABDOMEN: Soft, nontender, nondistended, bowel sounds present, no masses or hepatosplenomegaly appreciated EXTREMITIES: No cyanosis or edema. Pulses 2+/4 in bilateral upper and lower extremities SKIN: Red raised lesions on the right frontal region of the scalp which is nontender, cool to touch, and without any surround erythema or drainage. Skin over bilateral shins is very dry and flaky. NEUROLOGIC: Alert and oriented x3 to person, place and time. No focal deficits appreciated LABORATORY DATA: See below. IMAGING: Echocardiogram: EF 65% Underlying atrial fibrillation/flutter with consistent ventricular paced rhythm.Paced QRS complexes with LBBB configuration. Somewhat technically challenging study in light of the patients body habitus, but diagnostically useful information was still obtained. M-mode and two-dimensional echocardiography was performed with pulse, continuouswave, color flow, and tissue Doppler studies. Mild symmetrical left ventricular hypertrophy with septal wall motion abnormality due to right ventricle pacing, yet preserved global resting systolicfunction. Moderately dilated left atrium with elevated estimated mean left atrial pressure. At least mildly dilated right ventricle with normal wall motion. Doppler estimated pulmonary arterial pressure would be at least moderately severely increased. Moderately dilated right atrium, but could not visualize his inferior vena cava to further estimate central venous pressure (we estimated his right ventricle systolic pressure using a standard of 10 mmHg for central venous pressure). Normal aortic dimensions. Mild aortic valvular sclerosis with adequate cusp separation, but premature cuspclosure suggestive of a reduced forward stroke volume. No evidence of aortic insufficiency. Moderate degenerative changes of the mitral valve apparatus with adequate leaflet excursion and no posterior systolic buckling. No inflow tract obstruction, but at least mild and possibly moderate insufficiency. Normal appearing tricuspid valve with moderate insufficiency. Pacing lead could be visualized traversing right heart structures, but no separate intracardiac mass. No pericardial effusion. CXR 10/06/20: Lower lobe airspace disease and small pleural reactions suggested. CXR : Evidence for prior sternotomy and CABG lung lam demonstrate chronic interstitial changes. basilar atelectasis cannot be excluded. Stent graft overlies the left apex. MICROBIOLOGY: Please see below. ASSESSMENT: 80 year old male with PMHx of COPD with recurrent PNA, CAD s/p CABG, ESRD on HD, HTN, diabetes mellitus, atriall fibrillation, pacemaker placement, and blindness, presents with 1 week history of worsening congestion, productive cough, chills, and shortness of breath concerning for pneumonia with exacerbation of COPD. PLAN: Acute hypoxic respiratory failure likely MF to community acquired pneumonia, COPD exacerbation and decompensated HF -Increased O2 requirements at 4 L NC, ABG showed pH wnl -If continues to decompensate, consider repeat COVID test, CTA chest -Treatment of individual issues below CAP -WBC elevated at 12.1; however, likely steroid induced -Procalcitonin elevated at >2 -Repeat CXR does not show concern for persistent PNA -Sputum cx: mod yeast -On PO levofloxacin COPD with acute exacerbation - Wheezing on exam today, more decreased breath sounds - IV methylprednisolone 60 mg IV q8H, c/w nebulizers ATC and PRN - Recommend o/p testing HFpEF with ? exacerbation -S/p back to back HD sessions x 3 -BNP >82K--> 75,700 -Echo above -Stopped lasix as patient is HD/ESRD -Trop neg -C/w BB BID ESRD on HD - S/p HD x3 days in a row - Follows [facility] schedule - Nephrology following Acute hypokalemia -K wnl this AM -Repeat BMP this evening, replace PRN -Daily labs HTN - continue home medications Diabetes mellitus -BS better controlled -C/w levemir 12 U QAM, consistent carb diet, SSI ACHS, hypoglycemic protocol Skin lesion on right temporal scalp - pt has history of skin cancer with new lesion, needs to establish with outpatient local steam plant operator for biopsy/excision DVT prophylaxis: SC heparin DISPOSITION: Inpatient status, nephrology consulted. PT/OT to see. Plan is likely home at discharge. VS, I&O, 24H, Fishbone Vital Signs/I&O Vital Signs Date Time Temp Pulse Resp B/P (MAP) Pulse Ox O2 Delivery O2 Flow Rate FiO2 10/06/20 10:20 98.0 75 18 116/57 (76) 89 Nasal Cannula 4.0 10/05/20 20:01 36 I&O- Last 24 Hours up to 6 AM 10/06/20 06:00 Intake Total 1420 ml Output Total 2500 ml Balance -1080 ml Laboratory Data 24H LABS Laboratory Tests 2 10/05/20 14:28: Bedside Glucose (Misc Panel) 146H 10/05/20 16:55: Bedside Glucose (Misc Panel) 303H 10/05/20 20:46: Bedside Glucose (Misc Panel) 146H 10/06/20 05:26: Nucleated Red Blood Cells % (auto) 0.0, Anion Gap 8, Glomerular Filtration Rate 18.0L, Calcium Level 9.2, Total Bilirubin 0.5, Aspartate Amino Transf (AST/SGOT) 14, Alanine Aminotransferase (ALT/SGPT) 17, Alkaline Phosphatase 101, Total Protein 7.8, Albumin 3.5, Albumin/Globulin Ratio 0.8 10/06/20 09:41: Blood Gas Bicarbonate Standard 20.8L, Arterial Blood pH 7.366, Arterial Blood Partial Pressure CO2 36.5, Arterial Blood Partial Pressure O2 110.6H, Arterial Blood Total CO2 21.6L, Arterial Blood HCO3 20.4L, Arterial Blood Base Excess - 4.4L, Arterial Blood Oxygen Saturation 98.2 10/06/20 09:47: Troponin I 0.04, RR-[id number]-Type Natriuretic Peptide 17030J 10/06/20 12:04: Bedside Glucose (Misc Panel) 137H CBC/BMP Laboratory Tests 10/06/20 05:26 Microbiology Microbiology 10/04/20 Gram Stain - Final, Complete 10/04/20 Sputum Culture - Final, Complete Yeast Like Organism 10/03/20 Blood Culture - Preliminary, Resulted No Growth after 48 hours. All Specime... 3/9/21 Blood Culture - Preliminary, Resulted No Growth after 48 hours. All Specime... Marjan Pendleton MD Oct 06, 2020 14:21
[2020-10-06] MEDS ORDERED: LevoFLOXacin 250 MG TABLET PO SCH (18:00)
[2020-10-06] MEDS ORDERED: LevoFLOXacin 750 MG TABLET PO ONE (18:00)
--- NOTE | 2020-10-06 20:19 | IPN ---
NEPHROLOGY PROGRESS NOTE DATE: 10/06/2020 SUBJECTIVE: Mr. Jackson is seen this morning on his bedside. He has just been transferred to telemetry bed this morning due to some chest discomfort and persistent cough. He reports that he had an episode of cough for about one-half hour, as he was feeling a lump in his chest. His symptoms are much better now. He has been dialyzed two days in a row with about 5500 mL fluid removal. He denies any nausea or vomiting. There is no fever or chills. PHYSICAL EXAMINATION: Temperature 98 degrees Fahrenheit, heart rate 75 per minute, respiratory rate 18 per minute, blood pressure 116/57 mmHg, oxygen saturation between 89-100%. He is on 3-4 liters oxygen. HEAD: Atraumatic. There is no oral thrush or ulcers. NECK: Supple and jugular venous distention (JVD) is still prominent. HEART SOUNDS: Regular at present. LUNGS: Bibasilar crepitus. ABDOMEN: Soft and nontender. Bowel sounds are normal. EXTREMITIES: Without any cyanosis or clubbing. Left arm arteriovenous (AV) fistula is patent. NEUROLOGIC: He is awake and at his baseline mentation without focal deficits. LABORATORY STUDIES: Today's labs show WBC 12.1, hemoglobin 9.3, hematocrit 30.4, platelets 213. Sodium 138, potassium 4.6, BUN 36, creatinine 3.49. His BNP level is still 75,742 and troponin 0.04. PROBLEMS: 1. End-stage renal disease. Patient was dialyzed yesterday and will be scheduled for next dialysis tomorrow. Electrolytes are within normal range. 2. Cough and shortness of breath. We have removed 5.5 liters of fluid over the last couple of days with dialysis. We will remove another 3.3 liters of fluid with dialysis tomorrow. His BNP level is significantly elevated and we will see how it improves. 3. Anemia. His anemia has improved since we took off a significant amount of fluid. No other intervention is needed. 4. Recurrent cough. Etiology is uncertain. His sputum did show moderate yeast-like organisms. I am not sure if he has any fungal infiltrate.
[2020-10-06 22:00] VITALS: BP 114/51
[2020-10-07] MEDS: IPRATROPIUM 0.5MG/ALBUTEROL 2.5MG INH SOL UD 3ML (DUONEB) INH SCH ×7 (00:31→23:29)
[2020-10-07] MEDS: ONDANSETRON 4 MG TAB PO SCH ×4 (01:18→18:26)
[2020-10-07] MEDS: methylPREDNISolone 125MG 2ML VIAL IV SCH ×3 (04:53→21:01)
[2020-10-07] MEDS ORDERED: SODIUM CHLORIDE 0.9% 1000ML IV PRN (05:40)
[2020-10-07] MEDS ORDERED: LIDOCAINE 1% SDV 5ML VIAL SC PRN (05:40)
[2020-10-07 06:00] VITALS: BP 130/67
[2020-10-07] MEDS: CALCIUM CARBONATE 500 MG CHEW U/D PO SCH ×3 (06:33→18:26)
[2020-10-07] MEDS: ASPIRIN 81MG ENTERIC TABLET PO SCH (06:34)
[2020-10-07] MEDS: HEPARIN SOD (PORCINE) 5000UNITS/ML 1ML VIAL/SYRINGE SC SCH ×3 (06:34→21:02)
[2020-10-07] MEDS: METOPROLOL TART 25 MG TABLET PO SCH ×2 (06:34→21:00)
[2020-10-07 06:43] LABS: HEMATOCRIT 30.2 % (42.0-52.0); HEMOGLOBIN 9.3 g/dl (13.5-17.5); MEAN CORPUSCULAR HEMOGLOBIN 32.2 pg (27.0-33.0); MEAN CORPUSCULAR HGB CONC 30.8 g/dl (32.0-36.5); MEAN CORPUSCULAR VOLUME 104.5 fl (80.0-96.0); PLATELET COUNT, AUTOMATED 208 10^3/uL (150-450); RED BLOOD COUNT 2.89 10^6/uL (4.30-6.10); WHITE BLOOD COUNT 10.7 10^3/uL (4.0-10.0)
[2020-10-07 07:08] LABS: ALBUMIN 3.2 GM/DL (3.2-5.2); BILIRUBIN,TOTAL 0.4 MG/DL (0.2-1.0); CALCIUM LEVEL 8.9 MG/DL (8.8-10.2); CREATININE FOR GFR 5.09 MG/DL (0.70-1.30); GLOMERULAR FILTRATION RATE 11.6 (>35); POTASSIUM SERUM 5.7 MEQ/L (3.5-5.1); TOTAL PROTEIN 7.3 GM/DL (6.4-8.2)
[2020-10-07] MEDS: HumaLOG INSULIN (NovoLOG) PER UNIT SC SCH ×4 (07:43→21:00)
[2020-10-07] MEDS: LEVEMIR (INSULIN DETEMIR) 1 UNITS/0.01ML SC SCH (07:43)
[2020-10-07 14:00] VITALS: BP 90/38
--- NOTE | 2020-10-07 17:13 | IPNPDOC ---
Date Seen The patient was seen on 10/07/20. Progress Note SUBJECTIVE: Low BP after HD ;however, improved later in day. Episode of confusion after waking up from nap but this also improved upon more time awake. No change in mental status otherwise, remains on 4 L NC with less wheezing today. Chest pain only with coughing which is likely MSK. Denies chest pain, fevers or chills. OBJECTIVE: PHYSICAL EXAMINATION: VITAL SIGNS: see below GENERAL: appeared more SOB this AM, lethargic but still Ox3 HEENT: Normocephalic, atraumatic, PERRLA, sclera anicteric, conjunctiva clear, moist oral mucosa NECK: Supple, trachea midline, no lymphadenopathy, no elevated JVD appreciated CARDIOVASCULAR: Regular rate and rhythm, normal S1 and S2. No murmurs, rubs, or gallops RESPIRATORY: mild wheezing- improving, decreased breath sounds b/l. No crackles, rhonchi. ABDOMEN: Soft, nontender, nondistended, bowel sounds present, no masses or hepatosplenomegaly appreciated EXTREMITIES: No cyanosis or edema. Pulses 2+/4 in bilateral upper and lower extremities SKIN: Red raised lesions on the right frontal region of the scalp which is nontender, cool to touch, and without any surround erythema or drainage. Skin over bilateral shins is very dry and flaky. NEUROLOGIC: Alert and oriented x3 to person, place and time. No focal deficits appreciated LABORATORY DATA: See below. IMAGING: Echocardiogram: EF 65% Underlying atrial fibrillation/flutter with consistent ventricular paced rhythm.Paced QRS complexes with LBBB configuration. Somewhat technically challenging study in light of the patients body habitus, but diagnostically useful information was still obtained. M-mode and two-dimensional echocardiography was performed with pulse, continuouswave, color flow, and tissue Doppler studies. Mild symmetrical left ventricular hypertrophy with septal wall motion abnormality due to right ventricle pacing, yet preserved global resting systolicfunction. Moderately dilated left atrium with elevated estimated mean left atrial pressure. At least mildly dilated right ventricle with normal wall motion. Doppler estimated pulmonary arterial pressure would be at least moderately severely increased. Moderately dilated right atrium, but could not visualize his inferior vena cava to further estimate central venous pressure (we estimated his right ventricle systolic pressure using a standard of 10 mmHg for central venous pressure). Normal aortic dimensions. Mild aortic valvular sclerosis with adequate cusp separation, but premature cuspclosure suggestive of a reduced forward stroke volume. No evidence of aortic insufficiency. Moderate degenerative changes of the mitral valve apparatus with adequate leaflet excursion and no posterior systolic buckling. No inflow tract obstruction, but at least mild and possibly moderate insufficiency. Normal appearing tricuspid valve with moderate insufficiency. Pacing lead could be visualized traversing right heart structures, but no separate intracardiac mass. No pericardial effusion. CXR 10/06/20: Lower lobe airspace disease and small pleural reactions suggested. CXR : Evidence for prior sternotomy and CABG lung lam demonstrate chronic interstitial changes. basilar atelectasis cannot be excluded. Stent graft overlies the left apex. MICROBIOLOGY: Please see below. ASSESSMENT: 80 year old male with PMHx of COPD with recurrent PNA, CAD s/p CABG, ESRD on HD, HTN, diabetes mellitus, atriall fibrillation, pacemaker placement, and blindness, presents with 1 week history of worsening congestion, productive cough, chills, and shortness of breath concerning for pneumonia with exacerbation of COPD. PLAN: Acute hypoxic respiratory failure likely multifactorial to community acquired pneumonia, COPD exacerbation and decompensated HF -Still requiring 4 L NC, less wheezy today -If continues to decompensate, consider repeat COVID test, CTA chest -Treatment of individual issues below CAP -WBC 10.7; however, likely steroid induced -Procalcitonin elevated at >2 -Repeat CXR does not show concern for persistent PNA -Sputum cx: mod yeast -On PO levofloxacin COPD with acute exacerbation - Wheezing improved on exam, continued decreased breath sounds - C/w IV methylprednisolone 60 mg IV q8H, c/w nebulizers ATC and PRN - Recommend o/p testing Diabetes mellitus -BS elevated more today, likely steroid driven -Increased levemir to 18 U QAM, consider HS levemir if levels still high on 09/25 11/15 -C/w consistent carb diet, SSI ACHS, hypoglycemic protocol HFpEF with ? exacerbation -S/p back to back HD sessions, s/p session today -BNP >82K--> 75,700 -Echo above -Trop neg -C/w BB BID ESRD on HD - S/p HD x3 days in a row, again today - Follows [facility] schedule - Nephrology following Hyperkalemia likely 2/2 to incr Cr, ESRD -HD today -No changes on tele -Daily labs HTN - continue home medications Skin lesion on right temporal scalp - pt has history of skin cancer with new lesion, needs to establish with outpatient local traffic administrator for biopsy/excision DVT prophylaxis: SC heparin DISPOSITION: Inpatient status, nephrology following. PT/OT to see. VS, I&O, 24H, Fishbone Vital Signs/I&O Vital Signs Date Time Temp Pulse Resp B/P (MAP) Pulse Ox O2 Delivery O2 Flow Rate FiO2 10/07/20 14:00 97.6 72 20 90/38 (55) 95 Nasal Cannula 4.0 10/05/20 20:01 36 I&O- Last 24 Hours up to 6 AM 10/07/20 06:00 Intake Total 1115 ml Output Total 0 ml Balance 1115 ml Laboratory Data 24H LABS Laboratory Tests 2 10/06/20 17:16: Bedside Glucose (Misc Panel) 179H 10/06/20 20:34: Bedside Glucose (Misc Panel) 205H 10/07/20 05:33: Bedside Glucose (Misc Panel) 255H 10/07/20 06:11: Nucleated Red Blood Cells % (auto) 0.0, Anion Gap 10, Glomerular Filtration Rate 11.6L, Calcium Level 8.9, Total Bilirubin 0.4, Aspartate Amino Transf (AST/SGOT) 15, Alanine Aminotransferase (ALT/SGPT) 21, Alkaline Phosphatase 102, Total Protein 7.3, Albumin 3.2, Albumin/Globulin Ratio 0.8 10/07/20 12:53: Bedside Glucose (Misc Panel) 132H 10/07/20 16:26: Bedside Glucose (Misc Panel) 266H CBC/BMP Laboratory Tests 10/07/20 06:11 Microbiology Microbiology 10/04/20 Gram Stain - Final, Complete 10/04/20 Sputum Culture - Final, Complete Yeast Like Organism 10/03/20 Blood Culture - Preliminary, Resulted No Growth after 72 hours. All specime... 10/03/20 Blood Culture - Preliminary, Resulted No Growth after 72 hours. All specime... Marjan Pendleton MD Oct 07, 2020 17:13
[2020-10-07 22:00] VITALS: BP 110/68
--- NOTE | 2020-10-07 22:06 | IPN ---
NEPHROLOGYPROGRESS NOTE DATE: 10/07/2020 SUBJECTIVE: Patient was seen and examined at the bedside today morning during hemodialysis. He is tolerating the hemodialysis procedure well. OBJECTIVE: VITAL SIGNS: Temperature 97.6 degrees Fahrenheit, blood pressure 130/67, pulse 69, respiratory rate 17, sating 100% on nasal cannula at 4 liters. INTAKE AND OUTPUT: There is no urine output recorded. Weight in the bed scale is not available. PHYSICAL EXAMINATION: GENERAL: Patient is awake, alert and oriented x3, lying in bed in no apparent distress. HEENT: Extraocular muscles intact. Pupils equally round and reactive to light. Mucous membranes are moist. Neck is supple. Mildly elevated JVD. RESPIRATORY: Chest is clear to auscultation bilaterally. Bilateral equal air entry. No rales or rhonchi. CARDIOVASCULAR: S1, S2, regular rate. Trace edema of bilateral lower extremities. ABDOMEN: Soft, positive bowel sounds, nontender. No organomegaly. MUSCULOSKELETAL: No clubbing or cyanosis. Pulses are 2+. AV ACCESS: He has a left upper arm AV fistula, which is being used for dialysis. MATHEMATICAL PHYSICIST: No focal deficit. Power is 5/5 in all extremities. LABORATORY DATA: CBC showed WBC 10.7, hemoglobin 9.3, platelets 208,000. BMP showed sodium 132, potassium 5.7, chloride 101, bicarb 21, BUN 70, creatinine 5. MICROBIOLOGY: Sputum is growing a yeast like organism. CURRENT INPATIENT MEDICATIONS: Patient's medications were all reviewed by myself. He continues to be on Levaquin and steroids. No other significant change in the medications today. ASSESSMENT AND PLAN: 1. End-stage renal disease: Patient is being dialyzed today. Ultrafiltration goal is around 3 liters as tolerated by his blood pressure. 2. Acute hypoxic respiratory failure secondary to COPD exacerbation and community-acquired pneumonia: Patient is tolerating the fluid removal. He continues to be on Levaquin. Clinically he is getting better. 3. Hyperkalemia: Patient is being dialyzed with a 2K bath. No need to repeat labs after dialysis. 4. Anemia and end-stage renal disease: Continue current dose of Aranesp. 5. Diabetes mellitus type 2: Continue current dose of insulin Levemir and insulin slicing scale.
[2020-10-08] MEDS: ONDANSETRON 4 MG TAB PO SCH ×5 (00:19→23:50)
[2020-10-08] MEDS: CALCIUM CARBONATE 500 MG CHEW U/D PO PRN ×2 (00:19→21:11)
[2020-10-08] MEDS: IPRATROPIUM 0.5MG/ALBUTEROL 2.5MG INH SOL UD 3ML (DUONEB) INH SCH ×6 (03:39→23:43)
[2020-10-08] MEDS: methylPREDNISolone 125MG 2ML VIAL IV SCH ×3 (05:10→20:32)
[2020-10-08] MEDS: HEPARIN SOD (PORCINE) 5000UNITS/ML 1ML VIAL/SYRINGE SC SCH ×3 (05:11→20:32)
[2020-10-08 06:00] VITALS: BP 125/76
[2020-10-08 06:49] LABS: HEMATOCRIT 34.8 % (42.0-52.0); HEMOGLOBIN 11.2 g/dl (13.5-17.5); MEAN CORPUSCULAR HEMOGLOBIN 32.2 pg (27.0-33.0); MEAN CORPUSCULAR HGB CONC 32.2 g/dl (32.0-36.5); PLATELET COUNT, AUTOMATED 303 10^3/uL (150-450); RED BLOOD COUNT 3.48 10^6/uL (4.30-6.10); WHITE BLOOD COUNT 16.6 10^3/uL (4.0-10.0)
[2020-10-08 07:05] LABS: ALBUMIN 3.4 GM/DL (3.2-5.2); BILIRUBIN,TOTAL 0.4 MG/DL (0.2-1.0); CALCIUM LEVEL 8.7 MG/DL (8.8-10.2); CREATININE FOR GFR 4.33 MG/DL (0.70-1.30); POTASSIUM SERUM 4.8 MEQ/L (3.5-5.1); TOTAL PROTEIN 7.6 GM/DL (6.4-8.2)
[2020-10-08] MEDS: HumaLOG INSULIN (NovoLOG) PER UNIT SC SCH ×4 (07:36→21:00)
[2020-10-08] MEDS: METOPROLOL TART 25 MG TABLET PO SCH ×3 (09:00→20:31)
[2020-10-08] MEDS ORDERED: LEVEMIR (INSULIN DETEMIR) 1 UNITS/0.01ML SC SCH (09:00)
[2020-10-08] MEDS: ASPIRIN 81MG ENTERIC TABLET PO SCH (09:24)
[2020-10-08] MEDS: CALCIUM CARBONATE 500 MG CHEW U/D PO SCH ×3 (09:25→17:42)
--- NOTE | 2020-10-08 13:18 | IPNPDOC ---
Date Seen The patient was seen on 10/08/20. Progress Note SUBJECTIVE: BP better improved today, tolerated HD well. Improved breath sounds, decreasing steroids. Attempting to wean down O2 further. Denies chest pain, fevers or chills. OBJECTIVE: PHYSICAL EXAMINATION: VITAL SIGNS: see below GENERAL: appeared more SOB this AM, lethargic but still Ox3 HEENT: Normocephalic, atraumatic, PERRLA, sclera anicteric, conjunctiva clear, moist oral mucosa NECK: Supple, trachea midline, no lymphadenopathy, no elevated JVD appreciated CARDIOVASCULAR: Regular rate and rhythm, normal S1 and S2. No murmurs, rubs, or gallops RESPIRATORY: no wheezing-improving, decreased breath sounds b/l but also more opened up. No crackles, rhonchi. ABDOMEN: Soft, nontender, nondistended, bowel sounds present, no masses or hepatosplenomegaly appreciated EXTREMITIES: No cyanosis or edema. Pulses 2+/4 in bilateral upper and lower extremities SKIN: Red raised lesions on the right frontal region of the scalp which is nontender, cool to touch, and without any surround erythema or drainage. Skin over bilateral shins is very dry and flaky. NEUROLOGIC: Alert and oriented x3 to person, place and time. No focal deficits appreciated LABORATORY DATA: See below. IMAGING: Echocardiogram: EF 65% Underlying atrial fibrillation/flutter with consistent ventricular paced rhythm.Paced QRS complexes with LBBB configuration. Somewhat technically challenging study in light of the patients body habitus, but diagnostically useful information was still obtained. M-mode and two-dimensional echocardiography was performed with pulse, continuouswave, color flow, and tissue Doppler studies. Mild symmetrical left ventricular hypertrophy with septal wall motion abnormality due to right ventricle pacing, yet preserved global resting systolicfunction. Moderately dilated left atrium with elevated estimated mean left atrial pressure. At least mildly dilated right ventricle with normal wall motion. Doppler estimated pulmonary arterial pressure would be at least moderately severely increased. Moderately dilated right atrium, but could not visualize his inferior vena cava to further estimate central venous pressure (we estimated his right ventricle systolic pressure using a standard of 10 mmHg for central venous pressure). Normal aortic dimensions. Mild aortic valvular sclerosis with adequate cusp separation, but premature cuspclosure suggestive of a reduced forward stroke volume. No evidence of aortic insufficiency. Moderate degenerative changes of the mitral valve apparatus with adequate leaflet excursion and no posterior systolic buckling. No inflow tract ob struction, but at least mild and possibly moderate insufficiency. Normal appearing tricuspid valve with moderate insufficiency. Pacing lead could be visualized traversing right heart structures, but no separate intracardiac mass. No pericardial effusion. CXR 10/06/20: Lower lobe airspace disease and small pleural reactions suggested. CXR : Evidence for prior sternotomy and CABG lung lam demonstrate chronic interstitial changes. basilar atelectasis cannot be excluded. Stent graft overlies the left apex. MICROBIOLOGY: Please see below. ASSESSMENT: 80 year old male with PMHx of COPD with recurrent PNA, CAD s/p CABG, ESRD on HD, HTN, diabetes mellitus, atriall fibrillation, pacemaker placement, and blindness, presents with 1 week history of worsening congestion, productive cough, chills, and shortness of breath concerning for pneumonia with exacerbation of COPD. PLAN: Acute hypoxic respiratory failure likely multifactorial to community acquired pneumonia, COPD exacerbation and decompensated HF -Still requiring 4 L NC, no wheezing on exam. Attempting to wean down O2 -Treatment of individual issues below -Anticipating patient needing home O2 at discharge. CAP -WBC 16.6 but likely steroid induced -Procalcitonin elevated at >2 -Repeat CXR does not show concern for persistent PNA -Sputum cx: mod yeast -On PO levofloxacin COPD with acute exacerbation - Wheezing resolved, breath sounds improving - Decrease to IV methylprednisolone 60 mg IV Q12, c/w nebulizers ATC and PRN - Recommend o/p testing Diabetes mellitus -BS better controlled today and will likely continue to improve as weaning down on steroids -C/w levemir to 18 U QAM, consider HS levemir if levels still high -C/w consistent carb diet, SSI ACHS, hypoglycemic protocol HFpEF with ? exacerbation -S/p back to back HD sessions, s/p session today -BNP >82K--> 75,700 -Echo above -Trop neg -C/w BB BID Physical deconditioning, acute on chronic -PT saw on 10/06/20: pt is shaky upon standing and requires 1 assist at time; pt has 24/7 care at home and will likley progress towards a home w/services plan. 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 PT/OT to see again on 10/09/20- will likely need home O2 at discharge. VS, I&O, 24H, Fishbone Vital Signs/I&O Vital Signs Date Time Temp Pulse Resp B/P (MAP) Pulse Ox O2 Delivery O2 Flow Rate FiO2 10/08/20 09:00 79 107/51 10/08/20 06:00 97.3 17 97 Nasal Cannula 4.0 10/05/20 20:01 36 I&O- Last 24 Hours up to 6 AM 10/08/20 06:00 Intake Total 975 ml Output Total 3000 ml Balance -2025 ml Laboratory Data 24H LABS Laboratory Tests 2 10/07/20 16:26: Bedside Glucose (Misc Panel) 266H 10/07/20 20:43: Bedside Glucose (Misc Panel) 149H 10/07/20 23:38: Bedside Glucose (Misc Panel) 201H 10/08/20 06:00: Nucleated Red Blood Cells % (auto) 0.6H, Anion Gap 11, Glomerular Filtration Rate 14.0L, Calcium Level 8.7L, Total Bilirubin 0.4, Aspartate Amino Transf (AST /SGOT) 14, Alanine Aminotransferase (ALT/SGPT) 27, Alkaline Phosphatase 106, Total Protein 7.6, Albumin 3.4, Albumin/Globulin Ratio 0.8 10/08/20 11:30: Bedside Glucose (Misc Panel) 256H CBC/BMP Laboratory Tests 10/08/20 06:00 Microbiology Microbiology 10/04/20 Gram Stain - Final, Complete 10/04/20 Sputum Culture - Final, Complete Yeast Like Organism 10/03/20 Blood Culture - Preliminary, Resulted No Growth after 72 hours. All specime... 10/03/20 Blood Culture - Preliminary, Resulted No Growth after 72 hours. All specime... Current Medications Current Medications Medications (Trade) Dose Ordered Sig/Elvin Route PRN Reason Start Time Stop Time Status Last Admin Dose Admin Acetaminophen (Tylenol Tab) 650 mg Q4H PRN PO PAIN OR FEVER 10/03/20 20:15 10/05/20 21:29 Albuterol/ Ipratropium (Duoneb (Ipr 0.5mg/Alb 2.5mg)) 3 ml Q2H PRN INH WHEEZING 10/03/20 20:15 Albuterol/ Ipratropium (Duoneb (Ipr 0.5mg/Alb 2.5mg)) 3 ml RQ4H INH 10/04/20 00:00 10/08/20 11:16 Amlodipine Besylate (Norvasc) 2.5 mg QHS PO 10/03/20 21:00 10/04/20 11:46 DC 10/03/20 22:48 Aspirin (Ecotrin) 81 mg DAILY PO 10/04/20 09:00 10/08/20 09:24 Calcium Carbonate (Tums) 500 mg BID PRN PO INDIGESTION 10/07/20 23:50 10/08/20 00:19 Calcium Carbonate (Tums) 500 mg PC PO 10/04/20 08:30 10/08/20 13:08 Ceftriaxone Sodium 1 gm/ Dextrose 50 ml @ 100 mls/hr Q24H IV 10/04/20 20:00 10/05/20 09:33 DC 10/04/20 20:35 Darbepoetin Rikki (Aranesp (Dialysis Use)) 100 mcg HD IV 10/05/20 11:55 10/05/20 12:26 Dextrose (Dextrose 50%) 25 ml ASDIRECTED PRN IV SEE LABEL COMMENTS 10/03/20 21:25 Doxycycline Hyclate (Vibramycin) 100 mg BID@0600,2000 PO 10/05/20 20:00 10/06/20 14:12 DC 10/06/20 06:44 Doxycycline Hyclate 100 mg/ Dextrose 100 ml @ 100 mls/hr Q12H IV 10/04/20 08:00 10/05/20 09:33 DC 10/05/20 08:58 Furosemide (Lasix) 40 mg BID@0900,1700 PO 10/04/20 09:00 10/04/20 08:22 DC Glucagon (Glucagon) 1 mg ASDIRECTED PRN SC SEE LABEL COMMENTS 10/03/20 21:25 Glucose (Glucose) 16 GM ASDIRECTED PRN PO SEE LABEL COMMENTS 10/03/20 21:25 Heparin Sodium (Heparin) Please refer to ... ASDIRECTED XX 10/07/20 05:40 10/08/20 05:39 DC Heparin Sodium (Porcine) (Heparin) 5,000 units Q8H SC 10/03/20 22:00 10/08/20 05:11 Home Med (Med Rec Complete!) ASDIRECTED XX 10/03/20 19:40 10/03/20 19:40 DC Insulin Detemir (Levemir Insulin) 8 units QAM SC 10/05/20 09:00 10/05/20 17:19 DC 10/05/20 08:54 Insulin Detemir (Levemir Insulin) 12 units QAM SC 10/06/20 09:00 10/07/20 17:11 DC 10/07/20 07:43 Insulin Detemir (Levemir Insulin) 18 units QAM SC 10/08/20 09:00 10/08/20 09:25 Insulin Human Lispro (HumaLOG INSULIN) SEE PROTOCOL TABLE AC SC 10/04/20 07:30 10/08/20 13:08 Insulin Human Lispro (HumaLOG INSULIN) SEE PROTOCOL TABLE QHS SC 10/03/20 21:00 10/04/20 21:48 Levofloxacin (Levaquin) 250 mg Q48H PO 10/06/20 18:00 10/06/20 15:33 DC Levofloxacin (Levaquin) 500 mg Q48H PO 10/08/20 18:00 Lidocaine HCl (Lidocaine 1% Sdv) 0.5 ml ASDIRECTED PRN SC SEE LABEL COMMENTS 10/07/20 05:40 10/08/20 05:39 DC Methylprednisolone (SOLUmedrol) 60 mg Q12H IV 10/04/20 21:00 10/06/20 11:07 DC 10/05/20 21:29 Methylprednisolone (SOLUmedrol) 60 mg Q8H IV 10/06/20 12:00 10/08/20 05:10 Metoprolol Tartrate (Lopressor) 25 mg BID PO 10/03/20 21:00 10/07/20 06:34 Ondansetron HCl (Zofran) 4 mg Q6H PO 10/05/20 18:00 10/08/20 13:07 Prednisone (Deltasone) 40 mg DAILY PO 10/04/20 09:00 10/04/20 09:26 DC 10/04/20 08:29 Sodium Chloride (Nacl 0.9%) 200 ml ASDIRECTED PRN IV SEE LABEL COMMENTS 10/07/20 05:40 10/08/20 05:39 DC Allergies Coded Allergies: No Known Allergies (Unverified , 04/13/20) Marjan Pendleton MD Oct 08, 2020 13:18
[2020-10-08 14:00] VITALS: BP 113/56
[2020-10-08] MEDS ORDERED: MIRALAX *UNIT DOSE* 17GM PACKET PO ONE (15:30)
[2020-10-08] MEDS: LevoFLOXacin 500 MG TABLET PO SCH (17:41)
[2020-10-08] MEDS: SENNA 8.6 MG TAB (SENOKOT) PO SCH (20:32)
[2020-10-08] MEDS: DOCUSATE SODIUM 100MG CAPSULE PO SCH (20:32)
[2020-10-08 22:00] VITALS: BP 115/57
--- NOTE | 2020-10-08 22:01 | IPN ---
PROGRESS NOTE DATE: 10/08/2020 SUBJECTIVE: Patient was seen and examined at the bedside today morning. He reports that he is feeling tired today. He was dialyzed yesterday, 3 liters of fluid was removed which he tolerated well. He reports his cough is significantly better. OBJECTIVE: Vital signs: Temperature is 97.4 degrees Fahrenheit, blood pressure 113/56, pulse is 70, respiratory rate of 18, saturating 99% on nasal cannula at 3 liters. Intake and output: Urine output is not recorded. Ultrafiltration with hemodialysis was 3 liters. Weight in the bed scale is not available. PHYSICAL EXAMINATION: General: Patient is awake, alert, oriented times three, laying in bed. Head and neck exam: Extraocular muscles intact. Pupils equally round and reactive to light. Mucous membranes are moist. Neck is supple. There is no jugular venous distension (JVD). Cardiovascular: S1, S2, regular rate. Trace edema of the bilateral lower extremities. Respiratory: Chest is clear to auscultation bilaterally. Bilateral equal air entry. No rales or rhonchi. Abdomen: Soft, positive bowel sounds, nontender, no organomegaly. Musculoskeletal: No clubbing or cyanosis. Pulses are 2+. Arteriovenous (AV) access: Left upper arm AV fistula. Central nervous system ([employer]ATOR): No focal deficit. Power is 5/5 in all extremities. LABORATORY REVIEW: CBC showed WBC of 16.6, hemoglobin is 11.2, platelets are 303. BMP showed sodium 129, potassium 4.8, chloride 94, bicarbonate 24, BUN 50, creatinine is 4.3. CURRENT INPATIENT MEDICATIONS: Patient's medications were all reviewed by myself. IV Solu-Medrol has been decreased by myself to 60 mg IV every 12 hours. No other significant change in the medications today as compared with yesterday. ASSESSMENT AND PLAN: 1. End-stage renal disease. Patient was dialyzed yesterday. Next hemodialysis will be done on Friday. 2. Acute hypoxic respiratory failure secondary to chronic obstructive pulmonary disease (COPD) exacerbation and community-acquired pneumonia. Patient's Solu-Medrol is being decreased. He continues to be on Levaquin. 3. Anemia in end-stage renal disease. Continue Aranesp. Hemoglobin level is stable. 4. Diabetes mellitus type 2. Continue insulin sliding scale and Levemir.
[2020-10-08] MEDS ORDERED: OMEPRAZOLE 20 MG CAP PO ONE (23:45)
[2020-10-09] VITALS (7 sets, daily range): BP systolic 106–134; BP diastolic 55–75; O2SAT 96–100
[2020-10-09] MEDS: ACETAMINOPHEN TAB 650MG DOSE (2X325MG) PO PRN (01:09)
[2020-10-09] MEDS ORDERED: FAMOTIDINE 20 MG TAB PO ONE (03:20)
[2020-10-09] MEDS: IPRATROPIUM 0.5MG/ALBUTEROL 2.5MG INH SOL UD 3ML (DUONEB) INH SCH ×6 (04:00→23:54)
[2020-10-09 06:26] LABS: HEMATOCRIT 33.6 % (42.0-52.0); HEMOGLOBIN 10.7 g/dl (13.5-17.5); MEAN CORPUSCULAR HEMOGLOBIN 32.2 pg (27.0-33.0); MEAN CORPUSCULAR HGB CONC 31.8 g/dl (32.0-36.5); MEAN CORPUSCULAR VOLUME 101.2 fl (80.0-96.0); PLATELET COUNT, AUTOMATED 286 10^3/uL (150-450); RED BLOOD COUNT 3.32 10^6/uL (4.30-6.10); WHITE BLOOD COUNT 18.5 10^3/uL (4.0-10.0)
[2020-10-09] MEDS: HEPARIN SOD (PORCINE) 5000UNITS/ML 1ML VIAL/SYRINGE SC SCH ×3 (06:32→21:03)
[2020-10-09] MEDS: ONDANSETRON 4 MG TAB PO SCH ×3 (06:32→17:20)
[2020-10-09 07:15] LABS: ALBUMIN 3.1 GM/DL (3.2-5.2); BILIRUBIN,TOTAL 0.4 MG/DL (0.2-1.0); CALCIUM LEVEL 8.6 MG/DL (8.8-10.2); CREATININE FOR GFR 6.18 MG/DL (0.70-1.30); GLOMERULAR FILTRATION RATE 9.3 (>35); POTASSIUM SERUM 5.8 MEQ/L (3.5-5.1)
[2020-10-09] MEDS ORDERED: methylPREDNISolone 125MG 2ML VIAL IV SCH ×2 (08:00→20:00)
[2020-10-09] MEDS: HumaLOG INSULIN (NovoLOG) PER UNIT SC SCH ×4 (09:06→21:00)
[2020-10-09] MEDS: CALCIUM CARBONATE 500 MG CHEW U/D PO SCH ×3 (09:07→17:20)
[2020-10-09] MEDS: ASPIRIN 81MG ENTERIC TABLET PO SCH (09:08)
[2020-10-09] MEDS: OMEPRAZOLE 20 MG CAP PO SCH (09:09)
[2020-10-09] MEDS: METOPROLOL TART 25 MG TABLET PO SCH ×2 (09:09→21:03)
[2020-10-09] MEDS: LEVEMIR (INSULIN DETEMIR) 1 UNITS/0.01ML SC SCH ×2 (09:10→21:02)
[2020-10-09] MEDS: DOCUSATE SODIUM 100MG CAPSULE PO SCH ×2 (09:11→21:01)
[2020-10-09] MEDS: NYSTATIN 500,000 U/5 ML SUSP UDC PO SCH ×3 (12:16→21:01)
[2020-10-09] MEDS: FLUCONAZOLE 100 MG TAB PO SCH (12:17)
--- NOTE | 2020-10-09 14:06 | IPNPDOC ---
Date Seen The patient was seen on 10/09/20. Progress Note SUBJECTIVE: Complains of increased heartburn with meals, will make adjustments to meds. Decreased O2 requirements, down to 1 L NC. BNP improving. High K in ESRD patient, nephrology notified. Denies incr SOB, chest pain, fevers, chills. OBJECTIVE: PHYSICAL EXAMINATION: VITAL SIGNS: see below GENERAL: AAOx 3, resting comfortably in bed HEENT: Normocephalic, atraumatic, PERRLA, sclera anicteric, conjunctiva clear, NC in place NECK: Supple, trachea midline, no lymphadenopathy, no elevated JVD appreciated CARDIOVASCULAR: Regular rate and rhythm, normal S1 and S2. No murmurs, rubs, or gallops RESPIRATORY: no wheezing-improving, decreased breath sounds b/l. No crackles, rhonchi. ABDOMEN: Soft, nontender, nondistended, bowel sounds present, no masses or hepatosplenomegaly appreciated EXTREMITIES: No cyanosis or edema. Pulses 2+/4 in bilateral upper and lower extremities. AV fistula LUE, thrill appreciated SKIN: Red raised lesions on the right frontal region of the scalp which is nontender, cool to touch, and without any surround erythema or drainage. Skin over bilateral shins is very dry and flaky. NEUROLOGIC: Alert and oriented x3 to person, place and time. No focal deficits appreciated LABORATORY DATA: See below. IMAGING: Echocardiogram: EF 65% Underlying atrial fibrillation/flutter with consistent ventricular paced rhythm.Paced QRS complexes with LBBB configuration. Somewhat technically challenging study in light of the patients body habitus, but diagnostically useful information was still obtained. M-mode and two-dimensional echocardiography was performed with pulse, continuouswave, color flow, and tissue Doppler studies. Mild symmetrical left ventricular hypertrophy with septal wall motion abnormality due to right ventricle pacing, yet preserved global resting systolicfunction. Moderately dilated left atrium with elevated estimated mean left atrial pressure. At least mildly dilated right ventricle with normal wall motion. Doppler estimated pulmonary arterial pressure would be at least moderately severely increased. Moderately dilated right atrium, but could not visualize his inferior vena cava to further estimate central venous pressure (we estimated his right ventricle systolic pressure using a standard of 10 mmHg for central venous pressure). Normal aortic dimensions. Mild aortic valvular sclerosis with adequate cusp separation, but premature cuspclosure suggestive of a reduced forward stroke volume. No evidence of aortic insufficiency. Moderate degenerative changes of the mitral valve apparatus with adequate leaflet excursion and no posterior systolic buckling. No inflow tract obstruction, but at least mild and possibly moderate insufficiency. Normal appearing tricuspid valve with moderate insufficiency. Pacing lead could be visualized traversing right heart structures, but no separate intracardiac mass. No pericardial effusion. CXR 10/06/20: Lower lobe airspace disease and small pleural reactions suggested. CXR : Evidence for prior sternotomy and CABG lung lam demonstrate chronic interstitial changes. basilar atelectasis cannot be excluded. Stent graft overlies the left apex. MICROBIOLOGY: Please see below. ASSESSMENT: 80 year old male with PMHx of COPD with recurrent PNA, CAD s/p CABG, ESRD on HD, HTN, diabetes mellitus, atriall fibrillation, pacemaker placement, and blindness, presents with 1 week history of worsening congestion, productive cough, chills, and shortness of breath concerning for pneumonia with exacerbation of COPD. PLAN: Acute hypoxic respiratory failure likely multifactorial to community acquired pneumonia, COPD exacerbation and decompensated HF -Decreased O2 requirements, currently 1 L NC 93%, no wheezing on exam. -Treatment of individual issues below CAP -WBC 18.5 but likely steroid induced -Procalcitonin elevated at >2 -Repeat CXR does not show concern for persistent PNA -Sputum cx: mod yeast -On PO levofloxacin COPD with acute exacerbation - Wheezing resolved, breath sounds improving - C/w decreased dose of IV methylprednisolone 60 mg IV Q12, c/w nebulizers ATC and PRN - Recommend o/p testing Diabetes mellitus -BS increased likely 2/2 to steroids -AM levemir incr to 25 U, added HS levemir 8 U. -C/w consistent carb diet, SSI ACHS, hypoglycemic protocol HFpEF with exacerbation -S/p back to back HD sessions -BNP >82K--> 75,700-->47K -Echo above -Trop neg -C/w BB BID Physical deconditioning, acute on chronic -PT saw on 10/06/20: pt is shaky upon standing and requires 1 assist at time; pt has 24/7 care at home and will likley progress towards a home w/services plan. -F/u PT/OT ESRD on HD - S/p HD - Follows [facility] schedule - Nephrology following Hyperkalemia likely 2/2 to incr Cr, ESRD -K 5.8 today -Discussed with nephrology, c/w HD as scheduled. -Daily labs Hyponatremia likely 2/2 to ESRD -Monitor Anemia of chronic disease -Stable -ARanesp with HD HTN - continue home medications Skin lesion on right temporal scalp - pt has history of skin cancer with new lesion, needs to establish with outpatient local resume writer for biopsy/excision DVT prophylaxis: SC heparin DISPOSITION: Inpatient status, nephrology following. PT/OT to see again on 10/09/20. Plan is home with services. VS, I&O, 24H, Fishbone Vital Signs/I&O Vital Signs Date Time Temp Pulse Resp B/P (MAP) Pulse Ox O2 Delivery O2 Flow Rate FiO2 10/09/20 10:00 1.0 10/09/20 09:09 70 134/61 10/09/20 08:30 96.7 18 100 Nasal Cannula 10/05/20 20:01 36 I&O- Last 24 Hours up to 6 AM 10/09/20 06:00 Intake Total 2220 ml Output Total 0 ml Balance 2220 ml Laboratory Data 24H LABS Laboratory Tests 2 10/08/20 16:35: Bedside Glucose (Misc Panel) 270H 10/08/20 20:09: Bedside Glucose (Misc Panel) 204H 10/09/20 06:07: Nucleated Red Blood Cells % (auto) 0.9H, Anion Gap 11, Glomerular Filtration Rate 9.3L, Calcium Level 8.6L, Total Bilirubin 0.4, Aspartate Amino Transf (AST/SGOT) 14, Alanine Aminotransferase (ALT/SGPT) 25, Alkaline Phosphatase 113, [id number] Natriuretic Peptide 12235X, Total Protein 7.0, Albumin 3.1L, Albumin/Globulin Ratio 0.8 10/09/20 11:57: Bedside Glucose (Misc Panel) 195H CBC/BMP Laboratory Tests 10/09/20 06:07 Microbiology Microbiology 10/04/20 Gram Stain - Final, Complete 10/04/20 Sputum Culture - Final, Complete Yeast Like Organism 10/03/20 Blood Culture - Final, Complete NO GROWTH AFTER 5 DAYS 10/03/20 Blood Culture - Final, Complete NO GROWTH AFTER 5 DAYS Current Medications Current Medications Medications (Trade) Dose Ordered Sig/Elvin Route PRN Reason Start Time Stop Time Status Last Admin Dose Admin Acetaminophen (Tylenol Tab) 650 mg Q4H PRN PO PAIN OR FEVER 3/9/21 20:15 10/09/20 01:09 Albuterol/ Ipratropium (Duoneb (Ipr 0.5mg/Alb 2.5mg)) 3 ml Q2H PRN INH WHEEZING 10/03/20 20:15 Albuterol/ Ipratropium (Duoneb (Ipr 0.5mg/Alb 2.5mg)) 3 ml RQ4H INH 10/04/20 00:00 10/09/20 11:05 Amlodipine Besylate (Norvasc) 2.5 mg QHS PO 10/03/20 21:00 10/04/20 11:46 DC 10/03/20 22:48 Aspirin (Ecotrin) 81 mg DAILY PO 10/04/20 09:00 10/09/20 09:08 Calcium Carbonate (Tums) 500 mg BID PRN PO INDIGESTION 10/07/20 23:50 10/08/20 21:11 Calcium Carbonate (Tums) 500 mg PC PO 10/04/20 08:30 10/09/20 12:17 Ceftriaxone Sodium 1 gm/ Dextrose 50 ml @ 100 mls/hr Q24H IV 10/04/20 20:00 10/05/20 09:33 DC 10/04/20 20:35 Darbepoetin Rikki (Aranesp (Dialysis Use)) 100 mcg HD IV 10/05/20 11:55 10/05/20 12:26 Dextrose (Dextrose 50%) 25 ml ASDIRECTED PRN IV SEE LABEL COMMENTS 10/03/20 21:25 Docusate Sodium (Colace) 100 mg BID PO 10/08/20 21:00 10/09/20 09:11 Doxycycline Hyclate (Vibramycin) 100 mg BID@0600,2000 PO 10/05/20 20:00 10/06/20 14:12 DC 10/06/20 06:44 Doxycycline Hyclate 100 mg/ Dextrose 100 ml @ 100 mls/hr Q12H IV 10/04/20 08:00 10/05/20 09:33 DC 10/05/20 08:58 Fluconazole (Diflucan Tablet) 100 mg DAILY PO 10/09/20 09:00 10/17/20 08:59 10/09/20 12:17 Furosemide (Lasix) 40 mg BID@0900,1700 PO 10/04/20 09:00 10/04/20 08:22 DC Glucagon (Glucagon) 1 mg ASDIRECTED PRN SC SEE LABEL COMMENTS 10/03/20 21:25 Glucose (Glucose) 16 GM ASDIRECTED PRN PO SEE LABEL COMMENTS 10/03/20 21:25 Heparin Sodium (Heparin) Please refer to ... ASDIRECTED XX 10/07/20 05:40 10/08/20 05:39 DC Heparin Sodium (Porcine) (Heparin) 5,000 units Q8H SC 10/03/20 22:00 10/09/20 06:32 Home Med (Med Rec Complete!) ASDIRECTED XX 10/03/20 19:40 10/03/20 19:40 DC Insulin Detemir (Levemir Insulin) 8 units QAM SC 10/05/20 09:00 10/05/20 17:19 DC 10/05/20 08:54 Insulin Detemir (Levemir Insulin) 8 units QHS SC 10/09/20 21:00 Insulin Detemir (Levemir Insulin) 12 units QAM SC 10/06/20 09:00 10/07/20 17:11 DC 10/07/20 07:43 Insulin Detemir (Levemir Insulin) 18 units QAM SC 10/08/20 09:00 10/09/20 08:07 DC 10/08/20 09:25 Insulin Detemir (Levemir Insulin) 25 units QAM SC 10/09/20 09:00 10/09/20 09:10 Insulin Human Lispro (HumaLOG INSULIN) SEE PROTOCOL TABLE AC SC 10/04/20 07:30 10/09/20 12:18 Insulin Human Lispro (HumaLOG INSULIN) SEE PROTOCOL TABLE QHS SC 10/03/20 21:00 10/04/20 21:48 Levofloxacin (Levaquin) 250 mg Q48H PO 10/06/20 18:00 10/06/20 15:33 DC Levofloxacin (Levaquin) 500 mg Q48H PO 10/08/20 18:00 10/08/20 17:41 Lidocaine HCl (Lidocaine 1% Sdv) 0.5 ml ASDIRECTED PRN SC SEE LABEL COMMENTS 10/07/20 05:40 10/08/20 05:39 DC Methylprednisolone (SOLUmedrol) 40 mg Q12H IV 10/09/20 20:00 Methylprednisolone (SOLUmedrol) 60 mg Q12H IV 10/04/20 21:00 10/06/20 11:07 DC 10/05/20 21:29 Methylprednisolone (SOLUmedrol) 60 mg Q12H IV 10/09/20 08:00 10/09/20 11:59 DC 10/09/20 09:07 Methylprednisolone (SOLUmedrol) 60 mg Q8H IV 10/06/20 12:00 10/08/20 20:41 DC 10/08/20 20:32 Metoprolol Tartrate (Lopressor) 25 mg BID PO 10/03/20 21:00 10/09/20 09:09 Nystatin (Mycostatin) 5 ml QID PO 10/09/20 13:00 10/16/20 12:59 10/09/20 12:16 Omeprazole (PriLOSEC) 40 mg DAILY PO 10/09/20 09:00 10/09/20 09:09 Ondansetron HCl (Zofran) 4 mg Q6H PO 10/05/20 18:00 10/09/20 12:16 Polyethylene Glycol (Miralax) 1 pkt DAILYPRN PRN PO CONSTIPATION 10/08/20 15:05 Prednisone (Deltasone) 40 mg DAILY PO 10/04/20 09:00 10/04/20 09:26 DC 10/04/20 08:29 Senna (Senokot) 2 tab QHS PO 10/08/20 21:00 10/08/20 20:32 Sodium Chloride (Nacl 0.9%) 200 ml ASDIRECTED PRN IV SEE LABEL COMMENTS 10/07/20 05:40 10/08/20 05:39 DC Allergies Coded Allergies: No Known Allergies (Unverified , 04/13/20) Marjan Pendleton MD Oct 09, 2020 14:06
[2020-10-09] MEDS: MIRALAX *UNIT DOSE* 17GM PACKET PO PRN (17:20)
[2020-10-09] MEDS: SENNA 8.6 MG TAB (SENOKOT) PO SCH (21:02)
--- NOTE | 2020-10-09 21:50 | IPN ---
NEPHROLOGY PROGRESS NOTE DATE: 10/09/2020 SUBJECTIVE: The patient was seen and examined at the bedside today morning. The patient is afebrile, hemodynamically stable. He reports that he has dysphagia to solids and liquids. He was getting a breathing treatment when I saw him in the morning. He continues to be on IV antibiotics at this time. His dialysis date is tomorrow morning. OBJECTIVE: VITAL SIGNS: Temperature is 97.1 degrees Fahrenheit, blood pressure 106/55, pulse is 70, respiratory rate of 20, saturating 96% on nasal cannula at one liter. INTAKE AND OUTPUT: There is no urine output recorded. Weight in the bed scale is 83.4 kg. PHYSICAL EXAMINATION: GENERAL APPEARANCE: The patient is awake, alert, oriented x3, laying in bed in no apparent distress. HEAD AND NECK: Extraocular muscles intact. Pupils are equally round and reactive to light. Mucous membranes are moist. Neck is supple. There is no jugular venous distention. CARDIOVASCULAR: S1, S2, regular rate. EXTREMITIES: Trace edema of the bilateral lower extremities. RESPIRATORY: Chest is clear to auscultation bilaterally. Bilaterally currently no rales or rhonchi. ABDOMEN: Soft, positive bowel sounds, nontender, no organomegaly. MUSCULOSKELETAL: No clubbing, no cyanosis. Pulses are 2+. ASSOCIATE DOCTOR: No focal deficits. Power is 5/5 in all extremities. LAB REVIEW: CBC showed a white blood cell count of 18.5, hemoglobin is 10.7, platelet count 286. BMP showed sodium of 128, potassium 5.8, chloride 91, bicarbonate 26, BUN 89, creatinine is 6.1. BNP is 47,838. CURRENT INPATIENT MEDICATIONS: The patient's medications were all reviewed by myself. He has been started on Fluconazole 100 mg p.o. daily for one week and Solu-Medrol dose has been decreased to 40 mg IV q. 12 hourly. Nystatin is 5 mL p.o. four times daily; that was started today morning. ASSESSMENT AND PLAN: 1. End-stage renal disease - The patient will be dialyzed tomorrow morning according to his regular schedule. Ultrafiltration goal will be around 3.5 to 4 liters. 2. Acute hypoxic respiratory failure secondary to COPD exacerbation and community acquired pneumonia. The patient's Solu-Medrol is being tapered down. He continues to be on IV Levaquin. 3. Dysphagia and possible oropharyngeal candidiasis - The patient has a yeast and sputum culture. He has been started on Nystatin and Fluconazole. 4. Anemia and end-stage renal disease - continue Aranesp with dialysis.
[2020-10-10] MEDS: ONDANSETRON 4 MG TAB PO SCH ×4 (00:36→17:23)
[2020-10-10] MEDS: CALCIUM CARBONATE 500 MG CHEW U/D PO PRN ×2 (00:36→21:38)
[2020-10-10] MEDS: IPRATROPIUM 0.5MG/ALBUTEROL 2.5MG INH SOL UD 3ML (DUONEB) INH SCH ×5 (03:42→19:58)
[2020-10-10] MEDS: HEPARIN SOD (PORCINE) 5000UNITS/ML 1ML VIAL/SYRINGE SC SCH ×3 (05:56→21:32)
[2020-10-10 06:00] VITALS: BP 125/61
[2020-10-10 06:20] LABS: HEMATOCRIT 30.9 % (42.0-52.0); MEAN CORPUSCULAR HEMOGLOBIN 32.3 pg (27.0-33.0); MEAN CORPUSCULAR HGB CONC 32.4 g/dl (32.0-36.5); MEAN CORPUSCULAR VOLUME 99.7 fl (80.0-96.0); PLATELET COUNT, AUTOMATED 276 10^3/uL (150-450); WHITE BLOOD COUNT 21.5 10^3/uL (4.0-10.0)
[2020-10-10 06:57] LABS: BILIRUBIN,TOTAL 0.5 MG/DL (0.2-1.0); CALCIUM LEVEL 8.2 MG/DL (8.8-10.2); CREATININE FOR GFR 7.22 MG/DL (0.70-1.30); GLOMERULAR FILTRATION RATE 7.8 (>35); POTASSIUM SERUM 6.1 MEQ/L (3.5-5.1); TOTAL PROTEIN 6.6 GM/DL (6.4-8.2)
[2020-10-10] MEDS: HumaLOG INSULIN (NovoLOG) PER UNIT SC SCH ×4 (07:30→21:00)
[2020-10-10] MEDS: CALCIUM CARBONATE 500 MG CHEW U/D PO SCH ×3 (08:30→18:26)
[2020-10-10] MEDS: NYSTATIN 500,000 U/5 ML SUSP UDC PO SCH ×4 (09:00→21:32)
[2020-10-10] MEDS: LEVEMIR (INSULIN DETEMIR) 1 UNITS/0.01ML SC SCH ×2 (09:00→21:30)
[2020-10-10] MEDS: METOPROLOL TART 25 MG TABLET PO SCH ×3 (09:00→21:00)
--- NOTE | 2020-10-10 11:33 | IPNPDOC ---
Text Note Date of Service The patient was seen on 10/10/20. NOTE SUBJECTIVE: -Denies incr SOB, chest pain, fevers, chills. -Now on room air OBJECTIVE: PHYSICAL EXAMINATION: VITAL SIGNS: see below GENERAL: AAOx 3, resting comfortably in bed HEENT: Normocephalic, atraumatic, PERRLA, sclera anicteric, conjunctiva clear, NC in place NECK: Supple, trachea midline, no lymphadenopathy, no elevated JVD appreciated CARDIOVASCULAR: Regular rate and rhythm, normal S1 and S2. No murmurs, rubs, or gallops RESPIRATORY: no wheezing, decreased breath sounds b/l. No crackles, rhonchi. ABDOMEN: Soft, nontender, nondistended, bowel sounds present, no masses or hepatosplenomegaly appreciated EXTREMITIES: No cyanosis or edema. Pulses 2+/4 in bilateral upper and lower extremities. AV fistula LUE, thrill appreciated SKIN: Red raised lesions on the right frontal region of the scalp which is nontender, cool to touch, and without any surround erythema or drainage. Skin over bilateral shins is very dry and flaky. NEUROLOGIC: Alert and oriented x3 to person, place and time. No focal deficits appreciated LABORATORY DATA: Reviewed WBC 21.5 Hgb 10.1 Na 126 Cr 7.22 K 6.1 IMAGING: Echocardiogram: EF 65% Underlying atrial fibrillation/flutter with consistent ventricular paced rhythm.Paced QRS complexes with LBBB configuration. Somewhat technically challenging study in light of the patients body habitus, but diagnostically useful information was still obtained. M-mode and two-dimensional echocardiography was performed with pulse, cont inuouswave, color flow, and tissue Doppler studies. Mild symmetrical left ventricular hypertrophy with septal wall motion abnormality due to right ventricle pacing, yet preserved global resting syst olicfunction. Moderately dilated left atrium with elevated estimated mean left atrial pressure. At least mildly dilated right ventricle with normal wall motion. Doppler estimated pulmonary arterial pressure would be at least moderately severely increased. Moderately dilated right atrium, but could not visualize his inferior vena cava to further estimate central venous pressure (we estimated his right ventricle systolic pressure using a standard of 10 mmHg for central venous pressure). Normal aortic dimensions. Mild aortic valvular sclerosis with adequate cusp separation, but premature cuspclosure suggestive of a reduced forward stroke volume. No evidence of aortic insufficiency. Moderate degenerative changes of the mitral valve apparatus with adequate leaflet excursion and no posterior systolic buckling. No inflow tract obstruction, but at least mild and possibly moderate insufficiency. Normal appearing tricuspid valve with moderate insufficiency. Pacing lead could be visualized traversing right heart structures, but no separate intracardiac mass. No pericardial effusion. CXR 10/06/20: Lower lobe airspace disease and small pleural reactions suggested. CXR : Evidence for prior sternotomy and CABG lung lam demonstrate chronic interstitial changes. basilar atelectasis cannot be excluded. Stent graft overlies the left apex. MICROBIOLOGY: Please see below. ASSESSMENT: 80 year old male with PMHx of COPD with recurrent PNA, CAD s/p CABG, ESRD on HD, HTN, diabetes mellitus, atriall fibrillation, pacemaker placement, and blindness, presents with 1 week history of worsening congestion, productive cough, chills, and shortness of breath concerning for pneumonia with exace rbation of COPD. PLAN: Acute hypoxic respiratory failure likely multifactorial to community acquired pneumonia, COPD exacerbation and decompensated CHF -Now back on room air with no wheezing on exam. -Treatment of individual issues below CAP -WBC 18.5 but likely steroid induced -Procalcitonin elevated at >2 -Repeat CXR does not show concern for persistent PNA -Sputum cx: mod yeast -On PO levofloxacin, day 6 of 7 of abx COPD with acute exacerbation - Wheezing resolved, breath sounds improving - C/w decreased dose of steroids, dc IV solumedrol, will now give pred 40 daily with plan for slow taper, c/w nebulizers ATC and PRN - Recommend o/p testing Diabetes mellitus -BS increased likely 2/2 to steroids -AM levemir -C/w consistent carb diet, SSI ACHS, hypoglycemic protocol HFpEF with exacerbation -S/p back to back HD sessions, has HD today -BNP >82K--> 75,700-->47K -Echo above -Trop neg -C/w BB BID Physical deconditioning, acute on chronic -Pt has 24/7 care at home and will likely progress towards a home w/services plan. -F/u PT/OT ESRD on HD - Has HD today - Follows [facility] schedule - Nephrology following Hyperkalemia 2/2 ESRD -c/w HD as scheduled. -Daily BMP Hyponatremia, chronic -Monitor Anemia of chronic disease -Stable -Aranesp with HD HTN - continue home medications Skin lesion on right temporal scalp - pt has history of skin cancer with new lesion, needs to establish with outpatient local speaker wirer for biopsy/excision - referral at discharge DVT prophylaxis: SC heparin DISPOSITION: Inpatient status, nephrology following. PT/OT to see again on 10/09/20. Plan is home with services. VS,Fishbone, I+O VS, Fishbone, I+O Laboratory Tests 10/10/20 05:50 Vital Signs Date Time Temp Pulse Resp B/P (MAP) Pulse Ox O2 Delivery O2 Flow Rate FiO2 10/10/20 06:00 97.1 72 17 125/61 (82) 95 Room Air 10/09/20 14:13 1.0 10/05/20 20:01 36 I&O- Last 24 Hours up to 6 AM 10/10/20 06:00 Intake Total 1394 ml Output Total 0 ml Balance 1394 ml GRACIE DANIELS MD Oct 10, 2020 09:03
[2020-10-10 12:50] VITALS: BP 104/52
[2020-10-10] MEDS: MIRALAX *UNIT DOSE* 17GM PACKET PO PRN (13:37)
[2020-10-10] MEDS: OMEPRAZOLE 20 MG CAP PO SCH (13:38)
[2020-10-10] MEDS: predniSONE 20 MG TAB PO SCH (13:38)
[2020-10-10] MEDS: FLUCONAZOLE 100 MG TAB PO SCH (13:38)
[2020-10-10] MEDS: ASPIRIN 81MG ENTERIC TABLET PO SCH (13:39)
[2020-10-10] MEDS: DOCUSATE SODIUM 100MG CAPSULE PO SCH ×2 (13:39→21:00)
[2020-10-10 14:37] VITALS: O2SAT 95
[2020-10-10] MEDS ORDERED: FLEET ENEMA PR PRN (14:55)
[2020-10-10] MEDS: LevoFLOXacin 500 MG TABLET PO SCH (17:23)
[2020-10-10] MEDS: SENNA 8.6 MG TAB (SENOKOT) PO SCH (21:00)
[2020-10-10 22:00] VITALS: BP 101/52
[2020-10-10 22:49] VITALS: O2SAT 97
--- NOTE | 2020-10-10 23:21 | IPN ---
NEPHROLOGY PROGRESS NOTE DATE: 10/10/2020 SUBJECTIVE: The patient is seen and examined at the bedside today morning during hemodialysis procedure. He is tolerating the hemodialysis procedure well. He denies any active complaints at this time. OBJECTIVE: VITAL SIGNS: Temperature 98 degrees Fahrenheit, blood pressure 104/52, pulse 70, respiratory rate 20, saturating 97% on room air. INTAKE/OUTPUT: Urine output is not recorded. Weight in the bed scale is 84.7 kg. PHYSICAL EXAMINATION: GENERAL: Patient is awake, alert, oriented x3, lying in bed getting hemodialysis done. HEAD AND NECK: Extraocular muscles intact. Pupils equally round and reactive to light. Mucous membranes are moist. Neck is supple. There is no JVD. CARDIOVASCULAR: S1, S2, regular rate. 1+ edema of the bilateral lower extremities. RESPIRATORY: Mildly decreased breath sounds at the bases. ABDOMEN: Soft, positive bowel sounds, nontender. No organomegaly. MUSCULOSKELETAL: No clubbing or cyanosis. Pulses are 2+. BUILD AND RELEASE MANAGER: No focal deficit. Power is 5/5 in bilateral upper extremities. LABORATORY REVIEW: CBC showed WBC 21.5, hemoglobin 10, platelets 276,000. BMP showed sodium 126, potassium 6.1, chloride 91, bicarb 23, BUN 128, creatinine 7.2, calcium 8.2. CURRENT INPATIENT MEDICATIONS: Patient's medications were all reviewed by myself. I.V. Solu-Medrol has been stopped. Patient has been started on prednisone 40 mg p.o. daily. ASSESSMENT AND PLAN: 1. End-stage renal disease: Patient is being dialyzed. Ultrafiltration goal will be 3 liters as tolerated by his blood pressure. 2. Acute COPD exacerbation and community-acquired pneumonia: Patient's Solu-Medrol dose is being tapered down. He is currently on Levaquin. 3. Oropharyngeal Candidiasis and dysphagia: Patient is on Nystatin and Fluconazole. Symptoms are getting better. 4. Anemia and end-stage renal disease: Continue Aranesp with dialysis. 5. Heart failure with preserved ejection fraction: Volume status is being optimized with dialysis. 6. Hyperkalemia: Patient is being dialyzed with a 1K bath. Potassium should improve with that.
[2020-10-11] MEDS: IPRATROPIUM 0.5MG/ALBUTEROL 2.5MG INH SOL UD 3ML (DUONEB) INH SCH ×7 (00:07→23:54)
[2020-10-11] MEDS: ONDANSETRON 4 MG TAB PO SCH ×5 (00:28→23:17)
[2020-10-11] MEDS: HEPARIN SOD (PORCINE) 5000UNITS/ML 1ML VIAL/SYRINGE SC SCH ×3 (05:12→20:59)
[2020-10-11 06:00] VITALS: BP 99/52
[2020-10-11 08:36] LABS: HEMATOCRIT 30.9 % (42.0-52.0); MEAN CORPUSCULAR HEMOGLOBIN 32.6 pg (27.0-33.0); MEAN CORPUSCULAR HGB CONC 32.4 g/dl (32.0-36.5); MEAN CORPUSCULAR VOLUME 100.7 fl (80.0-96.0); PLATELET COUNT, AUTOMATED 210 10^3/uL (150-450); RED BLOOD COUNT 3.07 10^6/uL (4.30-6.10); WHITE BLOOD COUNT 14.2 10^3/uL (4.0-10.0)
[2020-10-11] MEDS: OMEPRAZOLE 20 MG CAP PO SCH (08:43)
[2020-10-11] MEDS: HumaLOG INSULIN (NovoLOG) PER UNIT SC SCH ×4 (08:43→20:56)
[2020-10-11] MEDS: LEVEMIR (INSULIN DETEMIR) 1 UNITS/0.01ML SC SCH ×2 (08:43→20:59)
[2020-10-11] MEDS: DOCUSATE SODIUM 100MG CAPSULE PO SCH ×2 (08:43→20:57)
[2020-10-11] MEDS: predniSONE 20 MG TAB PO SCH (08:43)
[2020-10-11] MEDS: CALCIUM CARBONATE 500 MG CHEW U/D PO SCH (08:44)
[2020-10-11] MEDS: NYSTATIN 500,000 U/5 ML SUSP UDC PO SCH (08:44)
[2020-10-11] MEDS: ASPIRIN 81MG ENTERIC TABLET PO SCH (08:44)
[2020-10-11] MEDS: FLUCONAZOLE 100 MG TAB PO SCH (08:44)
[2020-10-11] MEDS: METOPROLOL TART 25 MG TABLET PO SCH ×2 (08:50→20:58)
[2020-10-11 09:01] LABS: ALBUMIN 2.7 GM/DL (3.2-5.2); BILIRUBIN,TOTAL 0.5 MG/DL (0.2-1.0); CALCIUM LEVEL 7.4 MG/DL (8.8-10.2); CREATININE FOR GFR 4.54 MG/DL (0.70-1.30); GLOMERULAR FILTRATION RATE 13.3 (>35); POTASSIUM SERUM 4.9 MEQ/L (3.5-5.1); TOTAL PROTEIN 6.2 GM/DL (6.4-8.2)
[2020-10-11] MEDS ORDERED: DOK1CAP7 PO (11:01)
[2020-10-11] MEDS ORDERED: PRED10TA2 PO (11:01)
[2020-10-11] MEDS ORDERED: NYST50SS PO (11:01)
[2020-10-11] MEDS ORDERED: OMEP-218 PO (11:01)
[2020-10-11] MEDS ORDERED: FLUC100T PO (11:01)
--- NOTE | 2020-10-11 11:25 | DS.PDOC ---
Discharge Summary General Date of Admission Oct 03, 2020 at 20:24 Date of Discharge 10/11/2020 Attending Physician: GRACIE DANIELS MD Specialist/Consultants Involve: NAZ IVY MD Discharge Summary PROCEDURES PERFORMED DURING STAY: None ADMITTING DIAGNOSES: CAP Hypoxia DISCHARGE DIAGNOSES: CAP COPD exacerbation HFpEF exacerbation Oral candidiasis with probable esophagitis as well CAD ESRD on HD TThS Diabetes Mellitus Hypertension Chronic Atrial fibrillation Legally blind COMPLICATIONS/CHIEF COMPLAINT: Hypoxia,Pneumonia. HISTORY OF PRESENT ILLNESS: 80 year old M with a history of CHF and ESRD on HD who presented with 1 week worsening upper respiratory symptoms. Patient states he started to feel congested with runny nose about 1 week prior and progressed to include a productive cough and shortness of breath for three days, with chills and one fever up to 101.0F, but he is not sure if this was related to his recent Moderna COVID-19 vaccine on 09/28/2020 and the fever occurred at some point after that. He also noted some weight gain over the week prior. HOSPITAL COURSE: On admission he was noted to have an unremarkable CXR with some probable atelectasis but did have an elevated procalcitonin and he had a full course of a ntibiotics for CAP. He complained of dysphagia and odynophagia and was noted to have oral candidiasis and probable esophagitis and is on course of oral fluconazole and nystatin with interval improvement. He also had elevated proBNP and his volume status was managed by nephrology via HD. He was also treated with a steroids for probable COPD exacerbation and will complete a prednisone taper upon discharge. He had hypoxemia at initial presentation that resolved with volume optimization via ultrafiltration, steroids and antibiotics. He is now being discharged home with family where he will continue to have 24 hour care and will follow up with his PCP within 7d and nephrology per HD schedule. DISCHARGE MEDICATIONS: Please see below. ALLERGIES: Please see below. PHYSICAL EXAMINATION ON DISCHARGE: VITAL SIGNS: Please see below. GENERAL: AAOx 3, resting comfortably in bed HEENT: Normocephalic, atraumatic, PERRLA, sclera anicteric, conjunctiva clear, NC in place NECK: Supple, trachea midline, no lymphadenopathy, no elevated JVD appreciated CARDIOVASCULAR: Regular rate and rhythm, normal S1 and S2. No murmurs, rubs, or gallops RESPIRATORY: no wheezing, decreased breath sounds b/l. No crackles, rhonchi. ABDOMEN: Soft, nontender, nondistended, bowel sounds present, no masses or hep atosplenomegaly appreciated EXTREMITIES: No cyanosis or edema. Pulses 2+/4 in bilateral upper and lower extremities. AV fistula LUE, thrill appreciated SKIN: Red raised lesions on the right frontal region of the scalp which is nontender, cool to touch, and without any surround erythema or drainage. Skin over bilateral shins is very dry and flaky. NEUROLOGIC: Alert and oriented x3 to person, place and time. No focal deficits appreciated LABORATORY DATA: Please see below. IMAGING: Echocardiogram: EF 65% Underlying atrial fibrillation/flutter with consistent ventricular paced rhythm.Paced QRS complexes with LBBB configuration. Somewhat technically challenging study in light of the patients body habitus, but diagnostically useful information was still obtained. M-mode and two-dimensional echocardiography was performed with pulse, continuouswave, color flow, and tissue Doppler studies. Mild symmetrical left ventricular hypertrophy with septal wall motion abnormality due to right ventricle pacing, yet preserved global resting systolicfunction. Moderately dilated left atrium with elevated estimated mean left atrial pressure. At least mildly dilated right ventricle with normal wall motion. Doppler estimated pulmonary arterial pressure would be at least moderately severely increased. Moderately dilated right atrium, but could not visualize his inferior vena cava to further estimate central venous pressure (we estimated his right ventricle systolic pressure using a standard of 10 mmHg for central venous pressure). Normal aortic dimensions. Mild aortic valvular sclerosis with adequate cusp separation, but premature cuspclosure suggestive of a reduced forward stroke volume. No evidence of aortic insufficiency. Moderate degenerative changes of the mitral valve apparatus with adequate leaflet excursion and no posterior systolic buckling. No inflow tract obstruction, but at least mild and possibly moderate insufficiency. Normal appearing tricuspid valve with moderate insufficiency. Pacing lead could be visualized traversing right heart structures, but no separate intracardiac mass. No pericardial effusion. Admission CXR: Evidence for prior sternotomy and CABG lung lam demonstrate chronic interstitial changes. Basilar atelectasis cannot be excluded. Stent graft overlies the left apex. IMPRESSION: Chronic changes. Possible basilar atelectasis. 10/06/2020 CXR: stable as prior PROGNOSIS: Good ACTIVITY: As tolerated. DIET: consistent carb, 2g sodium, 1.8L/24h fluid restriction DISCHARGE PLAN: home with 24 hour care. DISPOSITION: home with 24 hour care. DISCHARGE INSTRUCTIONS: Please complete the prednisone taper as prescribed. Please follow up with your PCP within 7d. Please continue HD schedule per nephrology. ITEMS TO FOLLOWUP ON ON OUTPATIENT: PCP follow up for recent CAP, oral candidiasis and esophagitis, COPD exacerbation Nephrology for ESRD on HD DISCHARGE CONDITION: Stable TIME SPENT ON DISCHARGE: 56 minutes. Vital Signs/I&Os Vital Signs Date Time Temp Pulse Resp B/P (MAP) Pulse Ox O2 Delivery O2 Flow Rate FiO2 10/11/20 08:50 70 100/51 10/11/20 07:30 16 10/11/20 06:00 98.1 100 Nasal Cannula 1.0 10/05/20 20:01 36 I&O- Last 24 Hours up to 6 AM 10/11/20 06:00 Intake Total 900 ml Output Total 3000 ml Balance -2100 ml Laboratory Data Labs 24H Laboratory Tests 2 10/10/20 12:53: Bedside Glucose (Misc Panel) 146H 10/10/20 16:39: Bedside Glucose (Misc Panel) 214H 10/10/20 20:53: Bedside Glucose (Misc Panel) 108 10/11/20 08:12: Nucleated Red Blood Cells % (auto) 0.4H, Anion Gap 10, Glomerular Filtration Rate 13.3L, Calcium Level 7.4L, Total Bilirubin 0.5, Aspartate Amino Transf (AST/SGOT) 22, Alanine Aminotransferase (ALT/SGPT) 25, Alkaline Phosphatase 84, Total Protein 6.2L, Albumin 2.7L, Albumin/Globulin Ratio 0.8 10/11/20 08:39: Bedside Glucose (Misc Panel) 267H CBC/BMP Laboratory Tests 10/11/20 08:12 FSBS Laboratory Tests Test 10/10/20 12:53 10/10/20 16:39 10/10/20 20:53 10/11/20 08:39 Range/Units Bedside Glucose (Misc Panel) 146 214 108 267 83-110 MG/DL Microbiology Microbiology 10/04/20 Gram Stain - Final, Complete 10/04/20 Sputum Culture - Final, Complete Yeast Like Organism 10/03/20 Blood Culture - Final, Complete NO GROWTH AFTER 5 DAYS 10/03/20 Blood Culture - Final, Complete NO GROWTH AFTER 5 DAYS Discharge Medications Scheduled Amlodipine Besylate (Amlodipine Besylate) 5 Mg Tablet, 2.5 MG PO QHS, (Reported) Aspirin (Aspirin EC) 81 Mg Tablet.dr, 81 MG PO DAILY, (Reported) Calcium Carbonate (Tums) 200 Mg Tab.chew, 500 MG PO PC, (Reported) Cholecalciferol (Vitamin D3) (Vitamin D3) 125 Mcg Capsule, 125 MCG PO DAILY, (Reported) Furosemide (Furosemide) 40 Mg Tablet, 40 MG PO BID, (Reported) Metoprolol Tartrate (Metoprolol Tartrate) 25 Mg Tablet, 25 MG PO BID, (Reported) Scheduled PRN Acetaminophen (Acetaminophen) 500 Mg Tablet, 500 MG PO BID PRN for PAIN, (Reported) Guaifen/Dextromethorphan/PE (Robitussin Cough-Cold Cf Liq) 118 Ml Liquid, 10 ML PO Q8H PRN for COUGH, (Reported) Guaifenesin/Dextromethorphan (Mucinex Dm ER 600-30 mg Tablet) 1 Each Tab.er.12h, 1 TAB PO BID PRN for COUGH, (Reported) Allergies Coded Allergies: No Known Allergies (Unverified , 04/13/20) GRACIE DANIELS MD Oct 11, 2020 11:25
[2020-10-11] MEDS: MAALOX 30 ML SUSP *UDC PO SCH ×3 (12:33→23:18)
--- NOTE | 2020-10-11 12:47 | IPNPDOC ---
Text Note Date of Service The patient was seen on 10/11/20. NOTE SUBJECTIVE: -Was going to discharge him home this midmorning but close to discharge time he reported nausea, started dry heaving and reported heartburn like pain with any PO? This report is new to me. Got lisandro and rachelle. Will defer discharge. OBJECTIVE: PHYSICAL EXAMINATION: VITAL SIGNS: see below GENERAL: AAOx 3, resting comfortably in bed HEENT: Normocephalic, atraumatic, PERRLA, sclera anicteric, conjunctiva clear, NC in place NECK: Supple, trachea midline, no lymphadenopathy, no elevated JVD appreciated CARDIOVASCULAR: Regular rate and rhythm, normal S1 and S2. No murmurs, rubs, or gallops RESPIRATORY: no wheezing, decreased breath sounds b/l. No crackles, rhonchi. ABDOMEN: Soft, nontender on examination, nondistended, bowel sounds present, no masses or hepatosplenomegaly appreciated EXTREMITIES: No cyanosis or edema. Pulses 2+/4 in bilateral upper and lower extremities. AV fistula LUE, thrill appreciated SKIN: Red raised lesions on the right frontal region of the scalp which is nontender, cool to touch, and without any surround erythema or drainage. Skin over bilateral shins is very dry and flaky. NEUROLOGIC: Alert and oriented x3 to person, place and time. No focal deficits appreciated LABORATORY DATA: Reviewed IMAGING: Echocardiogram: EF 65% Underlying atrial fibrillation/flutter with consistent ventricular paced rhythm.Paced QRS complexes with LBBB configuration. Somewhat technically challenging study in light of the patients body habitus, but diagnostically useful information was still obtained. M-mode and two-dimensional echocardiography was performed with pulse, continuouswave, color flow, and tissue Doppler studies. Mild symmetrical left ventricular hypertrophy with septal wall motion abnormality due to right ventricle pacing, yet preserved global resting systolicfunction. Moderately dilated left atrium with elevated estimated mean left atrial pressure. At least mildly dilated right ventricle with normal wall motion. Doppler estimated pulmonary arterial pressure would be at least moderately severely increased. Moderately dilated right atrium, but could not visualize his inferior vena cava to further estimate central venous pressure (we estimated his right ventricle systolic pressure using a standard of 10 mmHg for central venous pressure). Normal aortic dimensions. Mild aortic valvular sclerosis with adequate cusp separation, but premature cuspclosure suggestive of a reduced forward stroke volume. No evidence of aortic insufficiency. Moderate degenerative changes of the mitral valve apparatus with adequate leaflet excursion and no posterior systolic buckling. No inflow tract obstruction, but at least mild and possibly moderate insufficiency. Normal appearing tricuspid valve with moderate insufficiency. Pacing lead could be visualized traversing right heart structures, but no separate intracardiac mass. No pericardial effusion. CXR 10/06/20: Lower lobe airspace disease and small pleural reactions suggested. CXR : Evidence for prior sternotomy and CABG lung lam demonstrate chronic in terstitial changes. basilar atelectasis cannot be excluded. Stent graft overlies the left apex. MICROBIOLOGY: Please see below. ASSESSMENT: 80 year old male with PMHx of COPD with recurrent PNA, CAD s/p CABG, ESRD on HD, HTN, diabetes mellitus, atriall fibrillation, pacemaker placement, and blindness, presents with 1 week history of worsening congestion, productive cough, chills, and shortness of breath concerning for pneumonia with exacerbation of COPD. PLAN: N/V with epigastric vs. esophageal burning pain -maalox, zofran, KUB for N/V and acute abdominal pain -continue fluconazole, nystatin for ongoing candidiasis/esophagitis -day 7 of levaquin for CAP Acute hypoxic respiratory failure likely multifactorial to community acquired pneumonia, COPD exacerbation and decompensated CHF: resolved -Now back on room air with no wheezing on exam. -Treatment of individual issues below CAP -WBC 18.5 but likely steroid induced -Procalcitonin elevated at >2 -Repeat CXR does not show concern for persistent PNA -Sputum cx: mod yeast -On PO levofloxacin, day 7 of 7 of abx COPD with acute exacerbation - Wheezing resolved, breath sounds improving - C/w pred 40 daily with plan for taper, c/w nebulizers ATC and PRN - Recommend o/p testing Diabetes mellitus -BS increased likely 2/2 to steroids -AM levemir -C/w consistent carb diet, SSI ACHS, hypoglycemic protocol HFpEF with exacerbation -S/p back to back HD sessions, has HD today -Echo above -Trop neg -C/w BB BID Physical deconditioning, acute on chronic -Pt has 24/7 care at home and will likely progress towards a home w/services plan. -F/u PT/OT ESRD on HD - Has HD today - Follows [facility] schedule - Nephrology following Hyperkalemia 2/2 ESRD: resolved -c/w HD as scheduled. -Daily BMP Hyponatremia, chronic -Monitor Anemia of chronic disease -Stable -Aranesp with HD HTN - continue home medications Skin lesion on right temporal scalp - pt has history of skin cancer with new lesion, needs to establish with outpatient local horse show manager for biopsy/excision - referral at discharge DVT prophylaxis: SC heparin DISPOSITION: Inpatient status, nephrology following. PT/OT to see again on 10/09/20. Plan is home with services when medically stable. VS,Fishbone, I+O VS, Fishbone, I+O Laboratory Tests 10/11/20 08:12 Vital Signs Date Time Temp Pulse Resp B/P (MAP) Pulse Ox O2 Delivery O2 Flow Rate FiO2 10/11/20 11:08 18 10/11/20 08:50 70 100/51 10/11/20 06:00 98.1 100 Nasal Cannula 1.0 10/05/20 20:01 36 I&O- Last 24 Hours up to 6 AM 10/11/20 06:00 Intake Total 900 ml Output Total 3000 ml Balance -2100 ml GRACIE DANIELS MD Oct 11, 2020 12:47
--- NOTE | 2020-10-11 13:26 | REP ---
INDICATION: n/v. Nausea and vomiting. COMPARISON: None. TECHNIQUE: Single supine view of the abdomen. KUB. FINDINGS: There are 4 metallic screws in the left acetabulum and severe osteoarthritis of the left hip is noted. Vascular calcification is seen. There is a dextroconvex curve in the lumbar spine. There are calcifications in the upper abdomen, 1 on each side. There is an old healed rib fracture on the right. Bowel gas pattern is normal with air and stool in a nondistended colon. No small bowel dilation is seen. There is a linear metallic density along the right flank of uncertain significance. Possible clothing artifact versus foreign body. IMPRESSION: No evidence of bowel obstruction or mass. There are calcifications in the upper abdomen bilaterally question urinary calculi. There is a linear metallic density along the right flank of uncertain significance, artifact versus foreign body. Severe osteoarthritis left hip. Status post acetabular pinning. <Electronically signed by Brock López > 10/11/20 1024
[2020-10-11 14:00] VITALS: BP 100/51
[2020-10-11] MEDS: SENNA 8.6 MG TAB (SENOKOT) PO SCH (20:57)
[2020-10-11 20:58] VITALS: BP 114/51
[2020-10-11] MEDS: PANTOPRAZOLE 40MG TAB (PROTONIX) PO SCH (20:58)
[2020-10-11 21:04] VITALS: O2SAT 98
[2020-10-11] MEDS: CALCIUM CARBONATE 500 MG CHEW U/D PO PRN (21:12)
--- NOTE | 2020-10-11 21:52 | IPN ---
NEPHROLOGY PROGRESS NOTE DATE: 10/11/2020 SUBJECTIVE: The patient was seen and examined at the bedside today morning. He is afebrile, hemodynamically stable. He reports that his cough is better, however, he is complaining of reflux symptoms. He was dialyzed yesterday and 3 liters of fluid was removed. OBJECTIVE: VITAL SIGNS: Temperature 97.3 degrees Fahrenheit, blood pressure 114/51, pulse 69, respiratory rate 18, saturating 99% on room air. INTAKE/OUTPUT: Urine output is not recorded. Ultrafiltration with hemodialysis was 3 liters. Weight in the bed scale is 82.7 kg. PHYSICAL EXAMINATION: GENERAL: Patient is awake, alert, oriented x3, lying in bed in no apparent distress. HEAD AND NECK: Extraocular muscles intact. Pupils equally round and reactive to light. Mucous membranes are moist. Neck is supple. There is no JVD. CARDIOVASCULAR: S1, S2, regular rate. No edema of the bilateral lower extremities. RESPIRATORY: Chest is clear to auscultation bilaterally. Bilateral equal air entry. No rales or rhonchi. ABDOMEN: Soft, positive bowel sounds, nontender. No organomegaly. MUSCULOSKELETAL: No clubbing or cyanosis. Pulses are 2+. PERMIT TECHNICIAN: No focal deficit. Power is 5/5 in all extremities. LABORATORY REVIEW: CBC showed WBC 14.2, hemoglobin 10, platelets 210,000. BMP showed sodium 131, potassium 4.9, chloride 93, bicarb 28, BUN 55, creatinine 4.5. IMAGING: An abdominal x-ray was done today, which showed no evidence of bowel obstruction or mass. CURRENT INPATIENT MEDICATIONS: Patient's medications were all reviewed by myself. Tums has been stopped. Patient has been started on Mylanta. Nystatin has also been stopped. Omeprazole has been stopped and he has been started on Protonix 40 mg p.o. twice a day. ASSESSMENT AND PLAN: 1. End-stage renal disease: Patient was dialyzed yesterday. Next hemodialysis will be done tomorrow morning. 2. Acute COPD exacerbation and community-acquired pneumonia: Patient was on Levaquin, which has been stopped now. Solu-Medrol has been changed to prednisone. Leukocytosis is getting better. 3. Gastroesophageal reflux: Patient has been started on Mylanta. His PPI has also been changed to Protonix. 4. Anemia and end-stage renal disease: Continue Aranesp with dialysis. 5. Heart failure with preserved ejection fraction: Volume status is optimized with dialysis, 3 liters were removed yesterday. Tomorrow I would try to remove at least 3.5 liters with dialysis.
[2020-10-11 22:00] VITALS: BP_SYST 114; BP_SYST 143; BP_DIAS 52; BP_DIAS 53
[2020-10-11] MEDS: ACETAMINOPHEN TAB 650MG DOSE (2X325MG) PO PRN (22:08)
[2020-10-12] MEDS: IPRATROPIUM 0.5MG/ALBUTEROL 2.5MG INH SOL UD 3ML (DUONEB) INH SCH ×3 (03:27→12:00)
[2020-10-12] MEDS: DOCUSATE SODIUM 100MG CAPSULE PO SCH (05:28)
[2020-10-12] MEDS: MAALOX 30 ML SUSP *UDC PO SCH ×2 (05:28→13:13)
[2020-10-12] MEDS: PANTOPRAZOLE 40MG TAB (PROTONIX) PO SCH (05:28)
[2020-10-12] MEDS: ASPIRIN 81MG ENTERIC TABLET PO SCH (05:29)
[2020-10-12] MEDS: HEPARIN SOD (PORCINE) 5000UNITS/ML 1ML VIAL/SYRINGE SC SCH ×2 (05:29→14:00)
[2020-10-12] MEDS: FLUCONAZOLE 100 MG TAB PO SCH (05:29)
[2020-10-12] MEDS: predniSONE 20 MG TAB PO SCH (05:29)
[2020-10-12] MEDS: ONDANSETRON 4 MG TAB PO SCH ×2 (05:29→13:13)
[2020-10-12 06:00] VITALS: BP 108/50
[2020-10-12] MEDS ORDERED: LIDOCAINE 1% SDV 5ML VIAL SC PRN (06:00)
[2020-10-12] MEDS: HumaLOG INSULIN (NovoLOG) PER UNIT SC SCH ×2 (06:49→12:00)
[2020-10-12] MEDS: LEVEMIR (INSULIN DETEMIR) 1 UNITS/0.01ML SC SCH (06:50)
[2020-10-12] MEDS: METOPROLOL TART 25 MG TABLET PO SCH (08:38)
[2020-10-12] MEDS: DARBEPOETIN 100 MCG/0.5 ML *DIALYSIS* SYRINGE (J0882) IV SCH (10:08)
[2020-10-12] MEDS ORDERED: PANT40TA29 PO (10:17)
--- NOTE | 2020-10-12 10:23 | IPNPDOC ---
Text Note Date of Service The patient was seen on 10/12/20. NOTE SUBJECTIVE: -Reflux and heartburn has improved, tolerated food well. Will discharge home on protonix 40 BID. Likely exacerbation of GERD and heartburn is 2/2 steroid therapy. OBJECTIVE: PHYSICAL EXAMINATION: VITAL SIGNS: see below GENERAL: AAOx 3, resting comfortably in bed HEENT: Normocephalic, atraumatic, PERRLA, sclera anicteric, conjunctiva clear, NC in place NECK: Supple, trachea midline, no lymphadenopathy, no elevated JVD appreciated CARDIOVASCULAR: Regular rate and rhythm, normal S1 and S2. No murmurs, rubs, or gallops RESPIRATORY: no wheezing, decreased breath sounds b/l. No crackles, rhonchi. ABDOMEN: Soft, nontender on examination, nondistended, bowel sounds present, no masses or hepatosplenomegaly appreciated EXTREMITIES: No cyanosis or edema. Pulses 2+/4 in bilateral upper and lower extremities. AV fistula LUE, thrill appreciated SKIN: Red raised lesions on the right frontal region of the scalp which is nontender, cool to touch, and without any surround erythema or drainage. Skin over bilateral shins is very dry and flaky. NEUROLOGIC: Alert and oriented x3 to person, place and time. No focal deficits appreciated LABORATORY DATA: Reviewed IMAGING: Echocardiogram: EF 65% Underlying atrial fibrillation/flutter with consistent ventricular paced rhythm.Paced QRS complexes with LBBB configuration. Somewhat technically challenging study in light of the patients body habitus, but diagnostically useful information was still obtained. M-mode and two-dimensional echocardiography was performed with pulse, continuouswave, color flow, and tissue Doppler studies. Mild symmetrical left ventricular hypertrophy with septal wall motion abnormality due to right ventricle pacing, yet preserved global resting systolicfunction. Moderately dilated left atrium with elevated estimated mean left atrial pressure. At least mildly dilated right ventricle with normal wall motion. Doppler est imated pulmonary arterial pressure would be at least moderately severely increased. Moderately dilated right atrium, but could not visualize his inferior vena cava to further estimate central venous pressure (we estimated his right ventricle systolic pressure using a standard of 10 mmHg for central venous pressure). Normal aortic dimensions. Mild aortic valvular sclerosis with adequate cusp separation, but premature cuspclosure suggestive of a reduced forward stroke volume. No evidence of aortic insufficiency. Moderate degenerative changes of the mitral valve apparatus with adequate leaflet excursion and no posterior systolic buckling. No inflow tract obstruction, but at least mild and possibly moderate insufficiency. Normal appearing tricuspid valve with moderate insufficiency. Pacing lead could be visualized traversing right heart structures, but no separate intracardiac mass. No pericardial effusion. CXR 10/06/20: Lower lobe airspace disease and small pleural reactions suggested. CXR : Evidence for prior sternotomy and CABG lung lam demonstrate chronic interstitial changes. basilar atelectasis cannot be excluded. Stent graft overlies the left apex. MICROBIOLOGY: Please see below. ASSESSMENT: 80 year old male with PMHx of COPD with recurrent PNA, CAD s/p CABG, ESRD on HD, HTN, diabetes mellitus, atriall fibrillation, pacemaker placement, and blindness, presents with 1 week history of worsening congestion, productive cough, chills, and shortness of breath concerning for pneumonia with exacerbation of COPD. PLAN: N/V with epigastric vs. esophageal burning pain -maalox, zofran, KUB was negative for obstructive pathology -continue fluconazole, nystatin for ongoing candidiasis/esophagitis -s/p 7d of levaquin for CAP -switched PPI to protonix 40 BID from daily omeprazole i/s/o GERD exacerbation i/s/o steroid therapy Acute hypoxic respiratory failure likely multifactorial to community acquired pneumonia, COPD exacerbation and decompensated CHF: resolved -Now back on room air with no wheezing on exam. -Treatment of individual issues below CAP -WBC 18.5 but likely steroid induced -Procalcitonin elevated at >2 -Repeat CXR does not show concern for persistent PNA -Sputum cx: mod yeast -On PO levofloxacin, day 7 of 7 of abx COPD with acute exacerbation - Wheezing resolved, breath sounds improving - C/w pred 40 daily with plan for taper, c/w nebulizers ATC and PRN - Recommend o/p testing Diabetes mellitus -BS increased likely 2/2 to steroids -AM levemir -C/w consistent carb diet, SSI ACHS, hypoglycemic protocol HFpEF with exacerbation -S/p back to back HD sessions, has HD today -Echo above -Trop neg -C/w BB BID Physical deconditioning, acute on chronic -Pt has 24/7 care at home and will likely progress towards a home w/services plan. -F/u PT/OT ESRD on HD - Has HD today - Follows [facility] schedule - Nephrology following Hyperkalemia 2/2 ESRD: resolved -c/w HD as scheduled. -Daily BMP Hyponatremia, chronic -Monitor Anemia of chronic disease -Stable -Aranesp with HD HTN - continue home medications Skin lesion on right temporal scalp - pt has history of skin cancer with new lesion, needs to establish with outpatient local human resource manager for biopsy/excision - referral at discharge DVT prophylaxis: SC heparin DISPOSITION: DC home after HD today VS,Fishbone, I+O VS, Fishbone, I+O Vital Signs Date Time Temp Pulse Resp B/P (MAP) Pulse Ox O2 Delivery O2 Flow Rate FiO2 10/12/20 06:00 98.2 70 18 108/50 (69) 99 Nasal Cannula 1.0 I&O- Last 24 Hours up to 6 AM 10/12/20 06:00 Intake Total 660 ml Output Total 0 ml Balance 660 ml GRACIE DANIELS MD Oct 12, 2020 10:22
[2020-10-12 10:40] LABS: HEMATOCRIT 32.6 % (42.0-52.0); HEMOGLOBIN 10.7 g/dl (13.5-17.5); MEAN CORPUSCULAR HGB CONC 32.8 g/dl (32.0-36.5); MEAN CORPUSCULAR VOLUME 97.6 fl (80.0-96.0); PLATELET COUNT, AUTOMATED 238 10^3/uL (150-450); RED BLOOD COUNT 3.34 10^6/uL (4.30-6.10); WHITE BLOOD COUNT 16.6 10^3/uL (4.0-10.0)
[2020-10-12 11:04] VITALS: O2SAT 98
--- NOTE | 2020-10-12 22:22 | IPN ---
NEPHROLOGY PROGRESS NOTE DATE: 10/12/2020 SUBJECTIVE: The patient was seen and examined at the bedside today morning during hemodialysis procedure. He is tolerating the hemodialysis procedure well. He reports mild improvement in the reflux symptoms and dysphagia. He denies any cough at this time. OBJECTIVE: VITAL SIGNS: Temperature is 98.2 degrees Fahrenheit, blood pressure is 108/50, pulse is 70, respiratory rate of 18, saturating 99% on nasal cannula. INTAKE AND OUTPUT: There is no urine output recorded. Weight in the bed scale is 82.8 kg. PHYSICAL EXAMINATION: GENERAL APPEARANCE: The patient is awake, alert, oriented x3, laying in bed in no apparent distress. HEAD AND NECK: Extraocular muscles intact. Pupils are equally round and reactive to light. Mucous membranes are moist. Neck is supple. There is no jugular venous distention. CARDIOVASCULAR: S1, S2, regular rate. EXTREMITIES: No edema of the bilateral lower extremities. RESPIRATORY: Mildly decreased breath sounds at the bases, otherwise no active rales or rhonchi. ABDOMEN: Soft, positive bowel sounds, nontender, no organomegaly. MUSCULOSKELETAL: No clubbing, no cyanosis. Pulses are 2+. SENIOR ENERGY TRADER: No focal deficits. Power is 5/5 in all extremities. LAB REVIEW: CBC showed a WBC of 16.6, hemoglobin is 10.7, platelet count 238. BMP showed sodium of 131, potassium 4.9 and this lab is from yesterday. CURRENT INPATIENT MEDICATIONS: The patient's medications were all reviewed by myself. There is no significant change in the medications today as compared with yesterday. ASSESSMENT AND PLAN: 1. End-stage renal disease - The patient is being dialyzed according to his regular schedule. Ultrafiltration goal is around 2-3 liters as tolerated by his blood pressure. 2. Acute COPD exacerbation and community acquired pneumonia - The patient was given Levaquin. Clinically he is getting better. He is currently on Prednisone. 3. Gastroesophageal reflux disease and possible oropharyngeal candidiasis - The patient is on Fluconazole. He was also given Mylanta and Protonix. Symptoms are getting better. 4. Anemia and end-stage renal disease - continue Aranesp. The rest of the anemia management will be done as an outpatient. 5. Congestive heart failure with preserved ejection fraction 2 to 3 liters of fluid will be removed. Volume status is significantly better.
== END 2020-10-12 14:43 | disposition home or self-care (01) | DRG 291 ==
LOC: M ED 16:45 → M ED INP 20:24 → ENRESERV 21:09 → M MS5PR 22:06 → M MSPAV 10-06 10:09
PROVIDERS: ADMIT Family Medicine; ATTEND Internal Medicine
PROC: 5A1D70Z Performance of Urinary Filtration, Intermittent, Less than 6 Hours Per Day (ICD-10-PCS; principal; 2020-10-04)
DX: I13.2 Hypertensive heart and chronic kidney disease with heart failure and with stage 5 chronic kidney disease, or end stage renal disease (principal); N18.6 End stage renal disease; I50.33 Acute on chronic diastolic (congestive) heart failure; J96.01 Acute respiratory failure with hypoxia; J18.9 Pneumonia, unspecified organism; J44.0 Chronic obstructive pulmonary disease with (acute) lower respiratory infection; J44.1 Chronic obstructive pulmonary disease with (acute) exacerbation; B37.0 Candidal stomatitis; B37.81 Candidal esophagitis; I48.20 Chronic atrial fibrillation, unspecified; E87.1 Hypo-osmolality and hyponatremia; Z66 Do not resuscitate; E11.22 Type 2 diabetes mellitus with diabetic chronic kidney disease; H54.8 Legal blindness, as defined in USA; E11.319 Type 2 diabetes mellitus with unspecified diabetic retinopathy without macular edema; E87.6 Hypokalemia; I95.9 Hypotension, unspecified; L98.9 Disorder of the skin and subcutaneous tissue, unspecified; K21.9 Gastro-esophageal reflux disease without esophagitis; D63.1 Anemia in chronic kidney disease; E87.5 Hyperkalemia; R13.10 Dysphagia, unspecified; E11.65 Type 2 diabetes mellitus with hyperglycemia; Z85.828 Personal history of other malignant neoplasm of skin; Z95.5 Presence of coronary angioplasty implant and graft; Z99.2 Dependence on renal dialysis; Z90.49 Acquired absence of other specified parts of digestive tract; Z87.891 Personal history of nicotine dependence; Z20.822 Contact with and (suspected) exposure to COVID-19; Z79.82 Long term (current) use of aspirin; Z79.899 Other long term (current) drug therapy; Z95.0 Presence of cardiac pacemaker

== ENCOUNTER 2020-10-16 10:02 | Inpatient (IN) | payer OTHER ==
[~2020-10-16] VITALS: Ht 172.7 cm; Wt 86.5 kg
[2020-10-16] VITALS (8 sets, daily range): BP systolic 68–100; BP diastolic 45; O2SAT 98–100
[~2020-10-16 10:02] MED LIST changes: +DOK1CAP7 PO; +FLUC100T PO; +MUCI30TA5 PO; +NYST50SS PO; +OMEP-218 PO; +PANT40TA29 PO; +PRED10TA2 PO; +ROBI1CAP PO; +ROBILIQ13 PO; +TUMS500C PO; +[UNRECOGNIZED DRUG - CODE] PO
[2020-10-16] MEDS ORDERED: NS 500 ML IV ONE (11:00)
[2020-10-16 11:55] LABS: VENOUS PH 7.315 UNITS (7.330-7.430)
[2020-10-16 11:56] LABS: VENOUS BASE EXCESS 0.8 (-2.0-2.0); VENOUS HCO3 27.6 MEQ/L (23.0-27.0); VENOUS O2 SATURATION 67.4 % (60.0-80.0); VENOUS PARTIAL PRESSURE CO2 55.4 mmHg (38.0-50.0); VENOUS PARTIAL PRESSURE O2 38.7 mmHg (30.0-50.0); VENOUS STANDARD HCO3 24.7 MEQ/L; VENOUS TOTAL CO2 29.3 MEQ/L (24.0-28.0)
[2020-10-16 12:02] LABS: BASO % 0.2 % (0.0-1.0); EOS % 0.1 % (0.0-3.0); HEMATOCRIT 27.9 % (42.0-52.0); HEMOGLOBIN 8.8 g/dl (13.5-17.5); LYMPH # 0.7 10^3/uL (1.5-5.0); LYMPH % 3.6 % (24.0-44.0); MEAN CORPUSCULAR HEMOGLOBIN 33.3 pg (27.0-33.0); MEAN CORPUSCULAR HGB CONC 31.5 g/dl (32.0-36.5); MEAN CORPUSCULAR VOLUME 105.7 fl (80.0-96.0); MONO # 0.3 10^3/uL (0.0-0.8); MONO % 1.6 % (2.0-8.0); NEUTROPHILS # 18.8 10^3/uL (1.5-8.5); NEUTROPHILS % 92.1 % (36.0-66.0); PLATELET COUNT, AUTOMATED 165 10^3/uL (150-450); RED BLOOD COUNT 2.64 10^6/uL (4.30-6.10); WHITE BLOOD COUNT 20.4 10^3/uL (4.0-10.0)
[2020-10-16 12:16] LABS: INR 1.19; PROTHROMBIN TIME 15.4 SECONDS (12.5-14.3)
[2020-10-16 12:17] LABS: PARTIAL THROMBOPLASTIN TIME 24.7 SECONDS (24.2-38.5)
[2020-10-16 12:33] LABS: ALBUMIN 2.6 GM/DL (3.2-5.2); BILIRUBIN,DIRECT 0.1 MG/DL (0.0-0.2); BILIRUBIN,TOTAL 0.3 MG/DL (0.2-1.0); CK-MB VALUE MASS 3.3 NG/ML (<3.6); MB/CK RELATIVE INDEX 7.86 (< OR =4); TOTAL PROTEIN 5.5 GM/DL (6.4-8.2); TROPONIN I 0.04 NG/ML (< 0.10)
[2020-10-16] MEDS ORDERED: COLA100C5 PO (12:33)
[2020-10-16] MEDS ORDERED: FLUC100T PO (12:33)
[2020-10-16] MEDS ORDERED: PANT-23 PO (12:33)
[2020-10-16] MEDS ORDERED: PRED10TA2 PO (12:33)
[2020-10-16] MEDS ORDERED: NYST50SS SS (12:33)
[2020-10-16] MEDS ORDERED: GLUCOSE 4GM CHEW TABLET PO PRN (13:35)
[2020-10-16] MEDS ORDERED: ACETAMINOPHEN TAB 650MG DOSE (2X325MG) PO PRN (13:35)
[2020-10-16] MEDS ORDERED: GLUCAGON INJ 1MG VIAL SC PRN (13:35)
[2020-10-16] MEDS ORDERED: DEXTROSE 50% 50 ML SYRINGE IV PRN (13:35)
--- NOTE | 2020-10-16 14:58 | HPEPDOC ---
General Date of Admission Date of Service: Oct 16, 2020 Attending Physician: JAMES MALHOTRA MD Chief Complaint The patient is a 80-year-old male admitted with a reason for visit of Rectal Bleeding. Source: Patient Associated Symptoms: Nausea History of Present Illness HPI: Pt is a 80 year old male with PMH of ESRD on dialysis, DM, HTN, atrial fibrillation, COPD, CAD s/p CABG who presents to the ED with c/o rectal bleeding and lightheadedness onset this morning. Pt states that he was getting up from the toilet this morning when he felt lightheaded and slid off the toilet onto the ground. Denies actual fall or hitting his head. Pt is legally blind and lives with his daughter who takes care of him. States that his daughter noted bright red blood in the toilet at that time. Admits to diarrhea with loose stool s 3-4x a day since discharge from hospital on 10/12/20 for CAP. Admits to nausea and abd pain. He states that he has had similar sx 7 years ago at which time he had a colonoscopy done. Pt had 2 polyps removed at the time of colonoscopy but pt reports that it was otherwise nl. He states that his blood thinners and glipizide was discontinued at that time. Denies hx of hemorrhoids. He states that he receives dialysis on Fri, , and Fri. His last dialysis session was on Friday and he states that he makes "a little bit of urine". Pt was admitted and discharged from here on 10/12/20 after treatment for CAP with abx and prednisone. His discharge at that time was delayed by a day due to severe heartburn that was relieved with PPI. Home Medications Scheduled Pantoprazole Sodium (Pantoprazole Sodium) 40 Mg Vial, 40 MG IV Q12H Allergies Coded Allergies: No Known Allergies (Unverified , 10/16/20) Past Medical History Medical History 1. ESRD on dialysis [facility]. 2. CAD s/p CABG. 3. DM. 4. HTN. 5. Atrial fibrillation now s/p pacemaker. 6. COPD. 7. Legally blind. 8. Skin cancer s/p resection. Surgical History 1. Cholecystectomy. 2. CABG. 3. Skin cancer removal on face. Social History * Smoker: former Smoker, quit greater than 1 year (Quit smoking 40 years ago. Smoked 4 PPD for 5 years (20 pack year hx)) Alcohol: other (Previous heavy alcohol use. Used to drink 7-8 drinks/day. Last had one drink on ANTONIA. ) Drugs: denies Pets in the home: Dog(s) Pt is retired. 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 Currently lives with his daughter and dogs. A-FIB/CHADSVASC A-FIB History Current/History of A-Fib/PAF?: Yes Current PO Anticoag Therapy: No (Pt has hx of GI bleed 7 years ago, at which time blood thinners were discontinued. ) Review of Systems Constitutional: Denies: Chills, Fever ENT: Denies: Head Aches Pulmonary: Denies: Dyspnea, Cough, Pleuritic Chest Pain Cardiovascular: Reports: Lt Headedness; Denies: Chest Pain Gastrointestinal: Reports: Nausea, Abdominal Pain, Diarrhea, Other Symptoms (Rectal bleeding); Denies: Vomiting, Constipation Hematologic: Reports: Bruising Physical Examination General Exam: Positive: Alert, Cooperative, No Acute Distress Eye Exam: Positive: Conjunctiva & lids normal, EOMI; Negative: Sclera icteric ENT Exam: Positive: Atraumatic Chest Exam: Positive: Clear to auscultation, Normal air movement; Negative: Rales, Rhonchi, Wheezing Heart Exam: Positive: Rate Normal, Regular Rhythm, Normal S1, Normal S2; Negative: Gallops, Murmurs, Rubs Abdomen Exam: Positive: BS Hyperactive, Soft, Tenderness (Tenderness to all four quadrants, L>R.), Other (Multiple areas of bruising that pt reports have been there since his last admission here.); Negative: Hepatospenomegaly Extremity Exam: Positive: Normal pulses; Negative: Edema Skin Exam: Positive: Other skin issue (Ulcers to bilateral heels and lateral aspect of L great toe. Clean dressings in place. Does not appear cellulitic. ) Neuro Exam: Positive: Normal Speech, Cranial Nerves 3-12 NL Psych Exam: Positive: Mental status NL, Mood NL Vital Signs Vital Signs Date Time Temp Pulse Resp B/P (MAP) Pulse Ox O2 Delivery O2 Flow Rate FiO2 10/16/20 10:32 96.6 69 16 143/64 (90) 99 Laboratory Data Labs 24H Laboratory Tests 2 10/16/20 11:23: Immature Granulocyte % (Auto) 2.4, Neutrophils (%) (Auto) 92.1H, Lymphocytes (%) (Auto) 3.6L, Monocytes (%) (Auto) 1.6L, Eosinophils (%) (Auto) 0.1, Basophils (%) (Auto) 0.2, Neutrophils # (Auto) 18.8H, Lymphocytes # (Auto) 0.7L, Monocytes # (Auto) 0.3, Eosinophils # (Auto) 0.0, Basophils # (Auto) 0.0, Nucleated Red Blood Cells % (auto) 0.1H, Prothrombin Time 15.4H, Prothromb Time International Ratio 1.19, Activated Partial Thromboplast Time 24.7L, Lactic Acid Level 2.1*H, Total Bilirubin 0.3, Direct Bilirubin 0.1, Aspartate Amino Transf (AST/SGOT) 12, Alanine Aminotransferase (ALT/SGPT) 18, Alkaline Phosphatase 115, Total Creatine Kinase 42, Creatine Kinase MB 3.3, Creatine Kinase MB Relative Index 7.86H, Troponin I 0.04, Total Protein 5.5L, Albumin 2.6L, Albumin/Globulin Ratio 0.9, Lipase 156 10/16/20 11:47: POC Glucose (Misc Panel) 225H, POC Sodium (Misc Panel) 133L, POC Potassium (Misc Panel) 5.1, POC Chloride (Misc Panel) 95L, POC Total CO2 (Misc Panel) 30.0H, POC Blood Urea Nitrogen (Misc Panel 95H, POC Ionized Calcium (Misc Panel) 4.1L, POC Creatinine (Misc Panel) 7.3H, POC Hematocrit (Misc Panel) 28.0L, Blood Gas Bicarbonate Standard 24.7, Venous Blood pH 7.315L, Venous Blood Partial Pressure CO2 55.4H, Venous Blood Partial Pressure O2 38.7, Venous Blood Total Carbon Dioxide 29.3H, Venous Blood HCO3 27.6H, Venous Blood Oxygen Saturation 67.4, Venous Blood Base Excess 0.8 10/16/20 13:01: CBC/BMP Laboratory Tests 10/16/20 11:23 Assessment/Plan Assessment/Plan: Pt is a 80 year old male with PMH of ESRD on dialysis, DM, HTN, atrial fibrillation, COPD, CAD s/p CABG who presents to the ED with c/o rectal bleeding and lightheadedness onset this morning, admitted for further evaluation of rectal bleeding. #Acute on chronic anemia 2/2 possible lower vs upper GI bleed - Pt current hgb is 8.8. Pt has hx of anemia of renal disease w/ baseline hbg is 9-10. As pt currently has bright red blood per rectum, believe the drop in hgb is most likely due to upper vs lower GI bleeding. - Differential also includes diverticulitis vs diverticulosis, mesenteric ischemia, AV malformation, IBD, polyp/malignancy. Given the location of his abd pain being worse on the L side and elevated WBC, it is possible that pt has diverticulitis. Given the possible GI bleed, diverticulosis and mesenteric ischemia is a concern. Mesenteric ischemia possible as pt has atrial fibrillation but is not anticoagulated. However, given that pt lactic acid is only slightly elevated, this is less likely. IBD is low on the differential list as pt has had previous colonoscopy with no evidence of colonic inflammation. - CTA abd/pelvis ordered to eval for causes of abdominal pain - Pt placed on clear liquid diet. IV protonix BID - Will continue to monitor H&H q6H overnight. Plan to transfuse if hgb falls below 7. - Will hold home ASA to avoid any additional risk of bleeding. #Leukocytosis - Pt was recently admitted and discharged from here due to CAP. He was discharged with prednisone at that time and is currently on prednisone. Leukocytosis likely due to steroid use. 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 Pt states he sees a crude oil treater in regards to this. These areas are clean and well dressed and do not appear cellulitic so I do not believe this is a source of leukocytosis. - Pt currently afebrile, not tachycardic, and BP is 143/64. He has no other signs of infection as a cause of leukocytosis. - Pt has been recently d/c from the hospital and has been treated with abx. He c/o diarrhea so C. diff is a concern. C-diff by PCR has been ordered. #Lactic acidosis - Lactic acid elevated at 2.1. - May be related to ESRD - f/u 4 hour repeat lactic acid level #End stage renal disease on dialysis - Pt receives dialysis every Friday, , and Friday. - Nephrology has been consulted to manage dialysis. #Hx of GERD - Will continue calcium carbonate PRN here. - PPI as above #Atrial fibrillation - Pt has hx of atrial fibrillation and currently has pacemaker in place. His anticoagulant was discontinued 7 years ago presumably due to lower GI bleeding. - Currently on Metoprolol at home, on hold due to GI bleed. #DM type 2 - Sliding scale insulin with hypoglycemic protocol in place. #Hypertension - Amlodipine 2.5 mg PO QHS. #Cutaneous ulcers to b/l feet - Pt has hx of cutaneous ulcers to b/l feet - bilaterally to both heels and the the lateral aspect of L foot. Pt reports seeing a crude oil treater in regards to this issue. Pt states that his daughter changes the dressings on his foot daily. - Will have pt f/u with crude oil treater outpatient #Oral candidiasis - During pt last admission, he developed oral candidiasis with complaints of dysphagia and odynophagia. He was started and discharged on oral fluconazole and nystatin. - Will continue Fluconazole 100 mg PO and Nystatin 5mL QID to complete course. DVT prophylaxis: Teds and sequentials. Disposition: Currently further working up causes of GI bleeding. Discharge pending clinical improvement. Plan / VTE VTE Prophylaxis Ordered?: Yes (Teds and sequentials) GME ATTESTATION GME ATTESTATION My faculty preceptor for this patient encounter was physically present during the encounter and was fully available. All aspects of the patient interview, examination, medical decision making process, and medical care plan development were reviewed and approved by the faculty preceptor. The faculty preceptor is aware and concurs with the plan as stated in the body of this note and will attest to such by his/her cosignature. ATTENDING NOTE I, James Malhotra MD, have independently examined this patient and performed my own physical exam, as well as reviewed the documentation and edited where necessary. I have discussed in detail with the resident / student the findings and plan of treatment as documented by the resident / student and edited their note. I agree with their findings and treatment plan and have edited their documentation Melodie JEAN BAPTISTE OMS-3 Oct 16, 2020 14:58 AVA BA D.O. Oct 16, 2020 16:14 JAMES MALHOTRA MD Oct 18, 2020 09:55
[2020-10-16] MEDS ORDERED: ISOVUE-370 76% 100ML VIAL As Ordered ONE (15:22)
[2020-10-16] MEDS ORDERED: SLF 3 ML SYR IV PRN (17:20)
[2020-10-16] MEDS ORDERED: HumaLOG INSULIN (NovoLOG) PER UNIT SC SCH ×2 (17:30→21:00)
--- NOTE | 2020-10-16 17:55 | REP ---
INDICATION: r/o ischemic colitis COMPARISON: None. TECHNIQUE: CT angiogram of the abdomen and pelvis was performed with intravenous administration of 100 cc of Isovue 370, without oral contrast. 3D MIP reconstruction images performed. FINDINGS: Abdominal aorta: No aneurysm or dissection. There are moderate diffuse atherosclerotic calcifications of the abdominal aorta and its branches. There is mild narrowing at the origin of the celiac artery. 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 There is greater than 50% stenosis at the origin of the inferior mesenteric artery. There is high-grade stenosis at the origin of the main right renal artery. There is moderate stenosis at the origin of the main left renal artery. I do not see definite stenosis of the bilateral common iliac or external iliac arteries. I do not see definite stenosis of the common femoral arteries. There is high-grade stenosis of the proximal left superficial femoral artery. There appears to be moderate stenosis of the proximal right SFA. Lung bases: There is mild patchy parenchymal opacity in the dependent portion of each lung base representing mild atelectasis and or infiltrate.. Liver: Normal Gallbladder: Unremarkable. Spleen: Normal. Adrenals: Normal. Pancreas: Normal. Kidneys: There is severe bilateral renal atrophy without hydronephrosis. Small and large bowel: Unremarkable. Free fluid: None. Adenopathy: None. Pelvis: No mass. There is a left inguinal hernia containing noninflamed fat. Osseous structures: Unremarkable. IMPRESSION: Diffuse atherosclerotic calcifications of the abdominal aorta and its branches. Mild narrowing origin of celiac artery. 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 There is greater than 50% stenosis at the origin of the inferior mesenteric artery. High-grade stenosis proximal left SFA, moderate stenosis proximal right SFA. Mild patchy atelectasis and or infiltrate bilateral lung bases. <Electronically signed by Severino Golden > 10/16/20 [id number]
[2020-10-16] MEDS: CALCIUM CARBONATE 500 MG CHEW U/D PO SCH (18:01)
[2020-10-16] MEDS: NYSTATIN 500,000 U/5 ML SUSP UDC SS SCH ×2 (18:01→21:09)
[2020-10-16 18:54] LABS: HEMATOCRIT 29.2 % (42.0-52.0); HEMOGLOBIN 9.2 g/dl (13.5-17.5)
--- NOTE | 2020-10-16 20:11 | IPNPDOC ---
Text Note Date of Service The patient was seen on 10/16/20. NOTE time of service 805 pm I was informed by the patient's RNs that the patient had a near syncopal event followed by passing more than 500ml of maroon colored stool. His SBP was about 100 while his HR was 82. There was no change in the patient's mental status. #Near syncope likely vasovagal Plan: change activity to bed rest / fall precautions / check orthostats x 1 / place 2 large bore IVs / start NS @ 40ml/H / hold his BP meds / repeat Hg & lactic acid now / check iron studies and soluble transferin receptor / if he continues to bleed or his vitals change we will consult Gen Surg tonight to discuss urgent endoscopy VS,Timi, I+O VS, Timi, I+O Laboratory Tests 10/16/20 11:23 10/16/20 18:05 Vital Signs Date Time Temp Pulse Resp B/P (MAP) Pulse Ox O2 Delivery O2 Flow Rate FiO2 10/16/20 16:09 96.6 69 16 133/58 (83) 97 LEXIE REY MD Oct 16, 2020 20:11
[2020-10-16] MEDS ORDERED: SODIUM CHLORIDE 0.9% 1000ML IV ONE (20:15)
[2020-10-16] MEDS ORDERED: NS 1,000 ML IV SCH (20:25)
[2020-10-16] MEDS: PANTOPRAZOLE 40MG VIAL (C9113 PER 1) IV SCH (21:09)
[2020-10-16] MEDS: SLF 3 ML SYR IV SCH (21:10)
[2020-10-16 21:13] LABS: HEMATOCRIT 20.8 % (42.0-52.0); HEMOGLOBIN 6.2 g/dl (13.5-17.5)
[2020-10-16 21:39] LABS: PERCENT SATURATION 64.2 % (19.7-50.0)
[2020-10-16 21:50] LABS: FOLATE 4.1 NG/ML (>5.4)
[2020-10-16 22:17] LABS: CLOSTRIDIUM DIFFICILE PCR NEGATIVE (NEGATIVE)
[2020-10-16] MEDS ORDERED: NS 1,000 ML IV ONE (22:25)
[2020-10-17] VITALS (56 sets, daily range): BP systolic 69–170; BP diastolic 41–93; O2SAT 94–100
[2020-10-17] MEDS ORDERED: HumaLOG INSULIN (NovoLOG) PER UNIT SC STA (01:02)
[2020-10-17] MEDS ORDERED: NOREPINEPHRINE BITARTRATE 8 MG in D5W 500 ML IV SCH (04:22)
[2020-10-17] MEDS ORDERED: NS 1,000 ML IV ONE (04:25)
[2020-10-17] MEDS ORDERED: ONDANSETRON 4MG/2ML VIAL As Ordered ONE (04:31)
[2020-10-17] MEDS ORDERED: ONDANSETRON 4MG/2ML VIAL IV ONE (05:50)
[2020-10-17] MEDS: HumaLOG INSULIN (NovoLOG) PER UNIT SC SCH ×4 (06:36→17:45)
[2020-10-17] MEDS: SLF 3 ML SYR IV SCH ×2 (06:37→14:27)
[2020-10-17] MEDS: IPRATROPIUM 0.5MG/ALBUTEROL 2.5MG INH SOL UD 3ML (DUONEB) NEB SCH ×2 (07:09→14:00)
[2020-10-17 07:25] LABS: ABG BASE EXCESS -0.4 (-2.0-2.0); ABG O2 SATURATION 98.9 % (95.0-99.0); ABG PARTIAL PRESSURE CO2 38.6 mmHg (35.0-45.0); ABG STANDARD HCO3 24.1 MEQ/L (22.0-26.0); ABG TOTAL CO2 25.2 MEQ/L (23.0-31.0); ABG pH (ARTERIAL) 7.412 UNITS (7.350-7.450)
--- NOTE | 2020-10-17 07:53 | CR ---
GASTROENTEROLOGY CONSULTATION DATE: 10/17/2020 REQUESTING PHYSICIAN: Hospitalist Service. REASON FOR CONSULTATION: Acute GI bleeding. HISTORY OF PRESENT ILLNESS: This is an 80-year-old gentleman with a COPD recent exacerbation on prednisone. He also has a history of atrial fibrillation, coronary artery disease; he is status post bypass surgery. The patient is also on hemodialysis Friday, Friday and Friday. He was recently discharged from the hospital after a COPD exacerbation. The patient returns back to the hospital after several episodes of bright red blood per rectum. He was lightheaded and weak. He was admitted on 10/16/2020 a.m. and appeared to be relatively stable. Overnight he suddenly developed several bouts of bright red blood and maroon stools. He was also hypotensive and was transferred to the ICU for further evaluation and management. He was transfused 2 units of packed RBCs rapidly, he received I.V. fluids and he was placed on a pressor drip. His vitals have improved and pressors are being weaned off as we speak. We placed an NG-tube at bedside showing clear fluid, but no bile. No overt gastric bleeding is notable. PAST MEDICAL HISTORY: 1. End-stage renal disease on hemodialysis. 2. Hypertension. 3. Diabetes. 4. Atrial fibrillation. 5. Status post pacemaker. 6. COPD. 7. Patient is legally blind. PAST SURGICAL HISTORY: 1. Cholecystectomy. 2. Bypass surgery. SOCIAL HISTORY: Negative for current alcohol although he used to drink heavily. Negative for tobacco. PHYSICAL EXAMINATION: Vitals: Temperature 96.7, pulse 72, respiratory rate 18, blood pressure 98/56, 116/59, pulse ox 96%/96% on 4 liters oxygen via nasal cannula. General: He is awake and alert. HEENT: Grossly without abnormality except patient is legally blind; he is able to see shadows and some colors. Neck: Negative for lymphadenopathy or thyromegaly. Chest: Coarse, distant breath sounds, but no rhonchi or crackles. Heart: Regular rate and rhythm, S1 and S2, no murmurs or gallops. Abdomen: Soft, nontender, good bowel sounds, no masses palpable. Extremities: 1+ pedal edema. 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 High grade stenosis proximal left SFA, moderate stenosis proximal right SFA. Mild patchy atelectasis or infiltrate bilateral lung bases. LABORATORY DATA: Hemoglobin 8.8, 9.2, 6.2, WBC 20.4. PT-INR 1.19. IMPRESSION: Acute bright red blood per rectum/GI bleeding which is deemed to be painless. Differential diagnosis includes most likely lower GI bleeding versus a rapid upper GI bleed. The latter is most likely excluded with a clear NG-tube lavage; however, not entirely impossible. RECOMMENDATIONS: 1. Transfuse and stabilize. 2. Tagged RBC scan this morning stat. 3. Once stabilized EGD and colonoscopy will be performed.
[2020-10-17] MEDS: CALCIUM CARBONATE 500 MG CHEW U/D PO SCH ×3 (08:30→17:41)
[2020-10-17 08:42] LABS: HEMATOCRIT 27.6 % (42.0-52.0); HEMOGLOBIN 9.3 g/dl (13.5-17.5); MEAN CORPUSCULAR HEMOGLOBIN 31.1 pg (27.0-33.0); MEAN CORPUSCULAR HGB CONC 33.7 g/dl (32.0-36.5); MEAN CORPUSCULAR VOLUME 92.3 fl (80.0-96.0); PLATELET COUNT, AUTOMATED 137 10^3/uL (150-450); RED BLOOD COUNT 2.99 10^6/uL (4.30-6.10); WHITE BLOOD COUNT 18.6 10^3/uL (4.0-10.0)
[2020-10-17] MEDS ORDERED: predniSONE 20 MG TAB PO SCH (09:00)
[2020-10-17] MEDS ORDERED: FLUCONAZOLE 100 MG TAB PO SCH (09:00)
[2020-10-17] MEDS ORDERED: SUCRALFATE 1 GM TAB PO SCH (09:00)
[2020-10-17] MEDS: NYSTATIN 500,000 U/5 ML SUSP UDC SS SCH ×3 (09:00→17:00)
[2020-10-17 09:15] LABS: ALBUMIN 2.5 GM/DL (3.2-5.2); BILIRUBIN,DIRECT 0.2 MG/DL (0.0-0.2); BILIRUBIN,TOTAL 0.4 MG/DL (0.2-1.0); CK-MB VALUE MASS 4.1 NG/ML (<3.6); MB/CK RELATIVE INDEX 6.21 (< OR =4); TOTAL PROTEIN 4.9 GM/DL (6.4-8.2); TROPONIN I 0.04 NG/ML (< 0.10)
[2020-10-17] MEDS: PANTOPRAZOLE 40MG VIAL (C9113 PER 1) IV SCH (09:18)
[2020-10-17 09:26] LABS: CALCIUM LEVEL 7.3 MG/DL (8.8-10.2); CREATININE FOR GFR 6.36 MG/DL (0.70-1.30); POTASSIUM SERUM 4.9 MEQ/L (3.5-5.1)
[2020-10-17] MEDS ORDERED: LIDOCAINE 1% SDV 5ML VIAL SC PRN (09:40)
[2020-10-17] MEDS ORDERED: SODIUM CHLORIDE 0.9% 1000ML IV PRN (09:40)
[2020-10-17] MEDS ORDERED: CALCIUM GLUCONATE 1,000 MG in D5W MINI-BAG PLUS 100 ML IV ONE ×6 (10:00→16:05)
[2020-10-17 10:16] LABS: INR 1.34; PROTHROMBIN TIME 16.9 SECONDS (12.5-14.3)
[2020-10-17 10:20] LABS: D-DIMER QUANT 1748.84 ng/ml (<500)
--- NOTE | 2020-10-17 11:17 | IPNPDOC ---
Text Note Date of Service The patient was seen on 10/17/20. NOTE Subjective: Overnight, pt had several episodes of blood stools and an episode of near syncope. His hgb fell to 6.2 around 20:35 last night and pt decompensated with falling BP's. Pt SPB fell to 75 on doppler at one point. Due to pt being hemodynamically unstable, he was transferred to ICU, transfused 4 units PRBCs, 2 units FFP, and 1 unit of platelets, and required up to 10mcg of Levophed for blood pressures support. Dr. Johnson, GI, was consulted for possible endoscopy. Dr. Johnson plans for tagged RBC scan this morning and scoping pt later today if he is still hemodynamically stable. Dr. Carrasco was also called for possible surgical intervention for concern of ischemic bowel. Due to the hypotension with possible need for continued pressor support, Dr. Elder was consulted. Objective: VITALS: See below. GENERAL: Pt is laying in bed and appears to be sleeping and fatigued. Difficult to arouse. HEENT: NC/AT. Pt is sleeping in bed and occasionally opens his eyes. Sclera non- icteric. Lids normal. CHEST: Clear to auscultation with good air movement. No rales, rhonchi or wheezing appreciated. HEART: Regular rate and rhythm. Nl S1/S2. No murmurs, rubs, or gallops appreciated. ABD: Difficult to assess if pt is having any tenderness to palpation as he is sleeping for most of the exam. There are still multiple areas of bruising noted but are unchanged from time of admission. EXTREMITY: No pitting edema noted. DP pulses present bilaterally. NEURO: Pt is laying in bed asleep and is difficult to arouse. Assessment/Plan: Pt is a 80 year old male with PMH of ESRD on dialysis, DM, HTN, atrial fi brillation, COPD, CAD s/p CABG who presents to the ED with c/o rectal bleeding and lightheadedness onset this morning, admitted for further evaluation of rectal bleeding. #Acute on chronic anemia 2/2 possible lower vs upper GI bleed - Pt decompensated overnight and became hemodynamically unstable after a couple of episodes of joy red blood in stool. His hemoglobin decreased to 6.2 at its lowest. He was given 4 units PRBC's, 2 units FFP's, and 1 unit platelet as well as 10mcg Levophed and IV fluids. He was stabilized and his BP is currently 105/49, HR 70, and sating 100% on 2 L NC. His hgb has since increased to 9.[address] Elder placed a central line. Pt is currently off pressor support. - Differentials still includes diverticulitis vs diverticulosis, mesenteric ischemia, AV malformation, IBD, polyp/malignancy. - Pt CTA abd/pelvis resulted and showed 90% stenosis in the SMA. Along with lactic acid increased to 5.4 yesterday, mesenteric ischemia is higher on our di fferential list. - Pt placed on NPO. IV protonix BID - Will continue to monitor H&H q6H. - Will hold home ASA to avoid any additional risk of bleeding. - Poor/guarded prognosis given pt acute decompensation. #Leukocytosis - Pt was recently admitted and discharged from here due to CAP. He was di scharged with prednisone at that time and is currently on prednisone. Leukocytosis likely due to steroid use. 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 Pt states he sees a quality assurance calibrator in regards to this. These areas are clean and well dressed and do not appear cellulitic so I do not believe this is a source of leukocytosis. - Pt currently afebrile, not tachycardic, and BP is 143/64. He has no other signs of infection as a cause of leukocytosis. - C diff testing negative #Lactic acidosis - Lactic acid has elevated to 5.4 at its maximum yesterday. Repeat lactic acid today was 1.3. - May be related to ESRD, although mesenteric ischemia is another possibility. - trend lactic acid level #End stage renal disease on dialysis - Pt receives dialysis every Friday, , and Friday. - Nephrology has been consulted to manage dialysis. #Hx of GERD - Will continue calcium carbonate PRN here. - PPI as above #Atrial fibrillation - Pt has hx of atrial fibrillation and currently has pacemaker in place. His anticoagulant was discontinued 7 years ago presumably due to lower GI bleeding. - Currently on Metoprolol at home, on hold due to GI bleed. #DM type 2 - Sliding scale insulin with hypoglycemic protocol in place. #Hypertension - Amlodipine 2.5 mg PO QHS held because pt has decompensated overnight. #Cutaneous ulcers to b/l feet - Pt has hx of cutaneous ulcers to b/l feet - bilaterally to both heels and the the lateral aspect of L foot. Pt reports seeing a quality assurance calibrator in regards to this issue. Pt states that his daughter changes the dressings on his foot daily. - Will have pt f/u with quality assurance calibrator outpatient #Oral candidiasis - During pt last admission, he developed oral candidiasis with complaints of dysphagia and odynophagia. He was started and discharged on oral fluconazole and nystatin. - Will continue Fluconazole 100 mg PO and Nystatin 5mL QID to complete course. DVT prophylaxis: Teds and sequentials. Disposition: Pt is scheduled to have tagged RBC scan done this morning. Possible scope today if pt remains hemodynamically stable. Believe pt has a poor prognosis given continued rectal bleeding and acute decompensation overnight. Will continue to monitor. VS,Fishbone, I+O VS, Fishbone, I+O Laboratory Tests 10/16/20 11:23 10/16/20 18:05 10/16/20 20:35 10/17/20 08:19 10/17/20 08:31 Vital Signs Date Time Temp Pulse Resp B/P (MAP) Pulse Ox O2 Delivery O2 Flow Rate FiO2 10/17/20 09:45 70 16 105/49 (67) 100 Nasal Cannula 2.0 10/17/20 09:00 97.7 I&O- Last 24 Hours up to 6 AM 10/17/20 06:00 Intake Total 1215 ml Balance 1215 ml GME ATTESTATION GME ATTESTATION My faculty preceptor for this patient encounter was physically present during the encounter and was fully available. All aspects of the patient interview, examination, medical decision making process, and medical care plan development were reviewed and approved by the faculty preceptor. The faculty preceptor is aware and concurs with the plan as stated in the body of this note and will attest to such by his/her cosignature. ATTENDING NOTE I, James Malhotra MD, have independently examined this patient and performed my own physical exam, as well as reviewed the documentation and edited where necessary. I have discussed in detail with the resident / student the findings and plan of treatment as documented by the resident / student and edited their note. I agree with their findings and treatment plan and have edited their documentation Melodie JEAN BAPTISTE-3 Oct 17, 2020 11:17 AVA BA D.O. Oct 17, 2020 11:45 JAMES MALHOTRA MD Oct 18, 2020 09:56
[2020-10-17] MEDS ORDERED: propofoL 200 MG/20 ML VIAL As Ordered ONE (11:52)
[2020-10-17] MEDS ORDERED: LIDOCAINE 2% 100MG/5ML SDV (FOR ANES.) As Ordered ONE (11:52)
--- NOTE | 2020-10-17 13:58 | ROOR ---
Patient Name: Gucci Jackson Procedure Date: 10/17/2020 1:40 PM Date of : 1940 Age: 80 Room: [facility] Gender: Male Note Status: Finalized Procedure: Upper GI endoscopy Indications: Active gastrointestinal bleeding, Gastrointestinal bleeding of unknown origin Providers: Ulises JOHNSON MD Referring MD: 2. Inpatient 2. Inpatient Requesting Provider: Medicines: Monitored Anesthesia Care Complications: No immediate complications. Procedure: Pre-Anesthesia Assessment: - The heart rate, respiratory rate, oxygen saturations, blood pressure, adequacy of pulmonary ventilation, and response to care were monitored throughout the procedure. The Endoscope was introduced through the mouth, and advanced to the second part of duodenum. The upper GI endoscopy was accomplished without difficulty. The patient tolerated the procedure well. Findings: Moderately severe esophagitis with no bleeding was found in the lower third of the esophagus. Biopsies were taken with a cold forceps for histology. The entire examined stomach was normal. The examined duodenum was normal. Impression: - Moderate esophagitis. Biopsied. - Normal stomach. - Normal examined duodenum. Recommendation: - Perform a colonoscopy tomorrow. Procedure Code(s): --- Professional --- 87062, Esophagogastroduodenoscopy, flexible, transoral; with biopsy, single or multiple Diagnosis Code(s): --- Professional --- K92.2, Gastrointestinal hemorrhage, unspecified K20.9, Esophagitis, unspecified CPT copyright 2019 [employer]. All rights reserved. The codes documented in this report are preliminary and upon commercial driver review may be revised to meet current compliance requirements. Ulises Johnson MD Ulises JOHNSON MD 10/17/2020 1:57:52 PM Electronically signed by Ulises JOHNSON MD Number of Addenda: 0 Note Initiated On: 10/17/2020 1:40 PM Estimated Blood Loss: Estimated blood loss: none.
[2020-10-17] MEDS ORDERED: MOM 30ML SUSPENSION UDC PO ONE (14:15)
--- NOTE | 2020-10-17 14:48 | REP ---
INDICATION: acute GI bleed. COMPARISON: None. TECHNIQUE: 27.1 mCi of technetium 99 M are tagged RBC ultra tag kit was injected. Anterior flow study is acquired and sequential 5 minutes anterior planar images are acquired of the abdomen and pelvis for a imaging interval of 60 minutes. FINDINGS: Anterior flow study is unremarkable. Sequential 5 minutes images show no localized area of gastrointestinal bleeding. Normal hepatic, splenic, and blood pool uptake is seen. IMPRESSION: Negative radionuclide gastrointestinal bleed scan. No localized bleeding source is seen. <Electronically signed by Brock López > 10/17/20 [id number]
[2020-10-17 14:55] LABS: HEMATOCRIT 25.8 % (42.0-52.0); HEMOGLOBIN 8.7 g/dl (13.5-17.5)
[2020-10-17] MEDS ORDERED: NOREPINEPHRINE BITARTRATE 8 MG in D5W 492 ML IV SCH (15:30)
[2020-10-17] MEDS ORDERED: POLYETHYLENE GLYCOL (MIRALAX) 238GM BOTTLE PO ONE (16:00)
[2020-10-17 16:41] LABS: ABG BASE EXCESS 0.6 (-2.0-2.0); ABG HCO3 24.9 MEQ/L (22.0-26.0); ABG PARTIAL PRESSURE CO2 38.3 mmHg (35.0-45.0); ABG PARTIAL PRESSURE O2 79.7 mmHg (75.0-100.0)
[2020-10-17] MEDS ORDERED: ACETAMINOPHEN *IV* 1,000 MG in IV 1 EA IV ONE (19:00)
--- NOTE | 2020-10-17 19:02 | DS.PDOC ---
Discharge Summary General Date of Admission Oct 16, 2020 at 14:06 Date of Discharge October 17 2020 Attending Physician: JAMES MALHOTRA MD Specialist/Consultants Involve: HARJIT NICK MD Discharge Summary PROCEDURES PERFORMED DURING STAY: EGD ADMITTING DIAGNOSES: Acute on chronic anemia secondary to GI bleed ESRD on dialysis TThS. CAD s/p CABG. DM. HTN. Atrial fibrillation now s/p pacemaker. COPD. Legally blind. Skin cancer s/p resection. DISCHARGE DIAGNOSES: Acute on chronic anemia secondary to GI bleed ESRD on dialysis TThS. CAD s/p CABG. DM. HTN. Atrial fibrillation now s/p pacemaker. COPD. Legally blind. Skin cancer s/p resection. COMPLICATIONS/CHIEF COMPLAINT: Anemia Gi Bleed. HISTORY OF PRESENT ILLNESS: 80 year old male with PMH of ESRD on dialysis, DM, HTN, atrial fibrillation, COPD, CAD s/p CABG who presents to the ED with c/o rectal bleeding and lightheadedness. Pt states that he was getting up from the toilet when he felt lightheaded and slid off the toilet onto the ground. Denies actual fall or hitting his head. Pt is legally blind and lives with his daughter who takes care of him. States that his daughter noted bright red blood in the toilet at that time. Admits to diarrhea with loose stools 3-4x a day since discharge from hospital on 10/12/20 for CAP. Admits to nausea and abd pain. He states that he has had similar sx 7 years ago at which time he had a colonoscopy done. Pt had 2 polyps removed at the time of colonoscopy but pt reports that it was otherwise normal. He states that his blood thinners and glipizide was discontinued at that time. Denies hx of hemorrhoids. He states that he receives dialysis on Fri, , and Fri. His last dialysis session was on Friday without any complications. Pt was admitted and discharged from here on 10/12/20 after treatment for CAP with abx and prednisone. His discharge at that time was delayed by a day due to severe heartburn that was improved with PPI therapy. HOSPITAL COURSE: Patient was admitted to the hospital and started on IV protonix BID for presumed GI bleed. CTA abdomen/pelvis results below, concerning for chronic ischemic bowel disease. He was started on clear liquid diet and monitored H/H q6h. Overnight the patient again developed copious bloody bowel movements. Hg dropped from 9.2 to 6.3. Patient was transferred to ICU and transfused with 4 units PRBCs, 2 units plasma, and 1 unit platelets. Patient was made NPO at this time. He did require blood pressure support with levophed for less than an hour overnight. Dr. Nick, metal turner, placed a femoral dialysis catheter for better access. After transfusions he was able to be titrated off levophed and he did not have further bowel movements. His condition stabilized and he was able to undergo tagged RBC scan which did not show a source of the bleed. Dr. Johnson of gastroenterology was consulted and underwent EGD, which did not show a source of the bleed. The patient was started on prep for planned colonoscopy on 10/18/2020. The patient required his regular hemodialysis which was started at bedside in the ICU. The patient became hypotensive during HD and required levophed for blood pressure support again. Additionally, he began to have large bloody bowel movements again. Hemodialysis was stopped early. The patient was transfused with 1 unit PRBCs at this time. At this point, Dr. Johnson felt colonoscopy would have more risk than benefit. The case was also discussed with general surgery Dr. Carrasco who felt the patient was not a good candidate for surgical intervention. At this point, [facility] was contacted for transfer in order to provide the patient access to angiography with embolization in order to control the bleeding. Dr. Quintero from [facility] accepted the pa tient for transfer. An addition unit of PRBCs was ordered to transfuse during transfer, making a total of 6 units PRBCs during admission at [facility]. DISCHARGE MEDICATIONS: Please see below. ALLERGIES: Please see below. PHYSICAL EXAMINATION ON DISCHARGE: VITAL SIGNS: Please see below. GENERAL: Pt is laying in bed and appears to be sleeping and fatigued. HEENT: NC/AT.Sclera non-icteric. CHEST: Clear to auscultation with good air movement. No rales, rhonchi or wheezing appreciated. HEART: Irregularly irregular rhythm. Normal rate. Normal S1/S2. No murmurs, rubs, or gallops appreciated. ABD: Soft, tender to palpation in all four quadrants, nondistended, bowel sounds present SKIN: There are still multiple areas of bruising noted but are unchanged from time of admission. EXTREMITY: No pitting edema noted. DP pulses present bilaterally. Ulcers present without drainage or erythema. NEURO: Alert. No focal deficits appreciated LABORATORY DATA: Please see below. IMAGING: -CTA abdomen/pelvis Diffuse atherosclerotic calcifications of the abdominal aorta and its branches. Mild narrowing origin of celiac artery. 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 There is greater than 50% stenosis at the origin of the inferior mesenteric artery. High-grade stenosis proximal left SFA, moderate stenosis proximal right SFA. Mild patchy atelectasis and or infiltrate bilateral lung bases. -Nuclear RBC scan Negative radionuclide gastrointestinal bleed scan. No localized bleeding source is seen. PROGNOSIS: Guarded ACTIVITY: Bed rest DIET: NPO diet DISCHARGE PLAN: Transferred to [facility] for IR embolization. DISPOSITION: Pending treatment of GI bleed, prognosis guarded DISCHARGE CONDITION: Stable. TIME SPENT ON DISCHARGE: Greater than 35 minutes. Vital Signs/I&Os Vital Signs Date Time Temp Pulse Resp B/P (MAP) Pulse Ox O2 Delivery O2 Flow Rate FiO2 10/17/20 18:15 69 16 148/66 (93) 97 Room Air 10/17/20 17:48 97.5 10/17/20 10:00 2.0 I&O- Last 24 Hours up to 6 AM 10/17/20 06:00 Intake Total 1215 ml Balance 1215 ml Laboratory Data Labs 24H Laboratory Tests 2 10/16/20 20:35: Lactic Acid Level 5.4*H, Iron Level 68, Total Iron Binding Capacity 106L, Transferrin % Saturation 64.2H, Ferritin 1360H, Vitamin B12 Level 454, Folate 4.1L 10/16/20 21:09: Clostridium difficile [id number] PRESUMPTIVE NEGATIVE, Clostridium difficile Toxin (PCR) NEGATIVE 10/17/20 00:28: Bedside Glucose (Misc Panel) 264H 10/17/20 05:41: Bedside Glucose (Misc Panel) 154H 10/17/20 07:08: Blood Gas Bicarbonate Standard 24.1, Arterial Blood pH 7.412, Arterial Blood Partial Pressure CO2 38.6, Arterial Blood Partial Pressure O2 137.0H, Arterial Blood Total CO2 25.2, Arterial Blood HCO3 24.0, Arterial Blood Base Excess -0.4, Arterial Blood Oxygen Saturation 98.9 10/17/20 08:19: Anion Gap 9, Glomerular Filtration Rate 9.0L, Lactic Acid Level 1.3, Calcium Level 7.3L, Whole Blood Ionized Calcium 3.4*L, Total Bilirubin 0.4, Direct Bilirubin 0.2, Aspartate Amino Transf (AST/SGOT) 9, Alanine Aminotransferase (ALT/SGPT) 15, Alkaline Phosphatase 65, Total Creatine Kinase 66, Creatine Kinase MB 4.1H, Creatine Kinase MB Relative Index 6.21H, Troponin I 0.04, Total Protein 4.9L, Albumin 2.5L, Albumin/Globulin Ratio 1.0 10/17/20 08:31: Nucleated Red Blood Cells % (auto) 0.1H 10/17/20 09:35: Prothrombin Time 16.9H, Prothromb Time International Ratio 1.34, Activated Partial Thromboplast Time 29.0, Fibrinogen 197L, D-Dimer, Quantitative 1748.84H 10/17/20 12:26: Bedside Glucose (Misc Panel) 135H 10/17/20 14:09: Lab Scanned Report Miscellaneous Lab 10/17/20 16:23: Blood Gas Bicarbonate Standard 25.0, Arterial Blood pH 7.430, Arterial Blood Partial Pressure CO2 38.3, Arterial Blood Partial Pressure O2 79.7, Arterial Blood Total CO2 26.0, Arterial Blood HCO3 24.9, Arterial Blood Base Excess 0.6, Arterial Blood Oxygen Saturation 96.0 10/17/20 17:41: Bedside Glucose (Misc Panel) 194H CBC/BMP Laboratory Tests 10/16/20 20:35 10/17/20 08:19 10/17/20 08:31 10/17/20 14:41 FSBS Laboratory Tests Test 10/17/20 00:28 10/17/20 05:41 10/17/20 12:26 10/17/20 17:41 Range/Units Bedside Glucose (Misc Panel) 264 154 135 194 83-110 MG/DL Discharge Medications Scheduled Pantoprazole Sodium (Pantoprazole Sodium) 40 Mg Vial, 40 MG IV Q12H Allergies Coded Allergies: No Known Allergies (Unverified , 10/16/20) GME ATTESTATION GME ATTESTATION My faculty preceptor for this patient encounter was physically present during the encounter and was fully available. All aspects of the patient interview, examination, medical decision making process, and medical care plan development were reviewed and approved by the faculty preceptor. The faculty preceptor is aware and concurs with the plan as stated in the body of this note and will attest to such by his/her cosignature. ATTENDING NOTE I, James Malhotra MD, have independently examined this patient and performed my own physical exam, as well as reviewed the documentation and edited where necessary. I have discussed in detail with the resident / student the findings and plan of treatment as documented by the resident / student and edited their note. I agree with their findings and treatment plan and have edited their documentation. Total time spent on this discharge including coordination of care, review of chart, review and additions in the documentation of the resident and actual patient contact is around 35 minutes AVA BA D.O. Oct 17, 2020 19:02 JAMES MALHOTRA MD Oct 25, 2020 14:37
[2020-10-17] MEDS ORDERED: PANT40IN4 IV (19:11)
--- NOTE | 2020-10-17 20:40 | ECGEPIP ---
[facility] Test Date: 2020-10-17 Pat Name: OSCAR RIVERA Department: Room: [place] [address] Gender: Male Senior Bookkeeper: marj : 1940 Requested By: HARJIT NICK Order Number: [id number] Reading MD: Jimbo Lyons Measurements Intervals [place] Rate: 70 P: MI: QRS: -73 QRSD: 178 T: 74 QT: 472 QTc: 509 Interpretive Statements A-V sequential pacemaker Pacemaker activity is new since 10/03/2020 Electronically Signed on 10-17-2020 20:41:00 EDT by Jimbo Lyons
[2020-10-18] MEDS ORDERED: POLYETHYLENE GLYCOL (MIRALAX) 238GM BOTTLE PO ONE (05:00)
--- NOTE | 2020-10-18 08:58 | CCN ---
CRITICAL CARE CONSULTATION DATE: 10/16/2020 CHIEF COMPLAINT: Gastrointestinal (GI) bleed. HISTORY OF PRESENT ILLNESS: Mr. Jackson is an 80-year-old male with a past medical history of end-stage renal disease on hemodialysis Friday, , Friday, diabetes, hypertension, atrial fibrillation not on anticoagulation, coronary artery disease (CAD) status post coronary artery bypass graft (CABG), chronic obstructive pulmonary disease (COPD) and peripheral vascular disease who presented with complaint of bright red blood per rectum and lightheadedness. Patient had recently been admitted earlier this month for worsening cough and shortness of breath. He was treated for community-acquired pneumonia with antibiotics. He also had complaints of dysphagia and odynophagia and was noted to have oral candidiasis and was treated with oral fluconazole and Nystatin. Patient was also treated for a possible COPD exacerbation at that time with prednisone with further tapering on discharge. On the day prior to his discharge, he was reporting worsening heartburn and reflux, which did improve with increasing his usual daily omeprazole to Protonix 40 mg twice a day. He was discharged home with his steroid taper and continued followup with nephrology. The patient was discharged on October 11, 2020. Shortly after discharge, he was reporting episodes of diarrhea with loose stools about three or four times a day. On the day of presentation to the emergency department (ED), he had gotten up from going to the bathroom and felt lightheaded and had slid off the toilet onto the ground. He had not actually fallen or hit his head. Patient's daughter, who takes care of him, had noticed some bright red blood in the toilet. Patient himself is legally blind, so it is unclear if he was having bloody bowel movements prior to this episode. He also reported complaints of abdominal pain and burning sensation as well as nausea. Patient initially was admitted to the medical floor. He had mild anemia noted, but was not initially given any transfusion. He was continued on intravenous (IV) Protonix twice a day. He had a CT angiogram on admission which did not show any evidence of bleeding, but did show some high grade stenosis at the mesenteric artery. Patient initially had only a mild lactic acidosis. He was then noted, however, to have increasing lactate throughout the evening and had a near syncopal episode earlier in the evening, around 8:00 p.m. He was passing more than 500 mL of maroon-colored stool. He was not hypotensive at that time. He was given normal saline fluid bolus. A few hours later, his repeat hemoglobin had dropped to a 6.2. He was ordered 2 units of packed red blood cells and surgery was consulted. Patient was then noted to have worsening hypotension with systolic blood pressures into the 70s and 60s. He was given more IV fluid bolus. Early in the morning, patient had been finishing up his second unit of packed red blood cells and he continued to be hypotensive. He also continued to have multiple episodes of maroon-colored stool, some of which appeared more bright red blood. He was started on Levophed and transferred to the intensive care unit (ICU). I was then contacted by the architect marine overnight, as the patient was now on Levophed and there was need for possible central access for the pressors. At that time, he had only just been finishing his second unit of packed red blood cells and patient appeared to be in hemorrhagic shock. The discussion with the hospitalist was to increase the rate of his packed red blood cells transfusion and to give additional blood with order of at least 3 units of packed red blood cells as well as ordering 2 units of fresh frozen plasma. The Levophed could be continued as a temporary measure, although the goal would be to wean him off of the Levophed, as this is a hemorrhagic shock and he needs blood repletion. Patient was then given an additional 2 units of packed red blood cells with more rapid transfusion, which he tolerated well. He was also given 2 units of fresh frozen plasma. After finishing up his packed red blood cells and fresh frozen plasma, he was able to be weaned off of Levophed early this morning. Patient also had some episodes initially when he presented to the ICU of unresponsiveness and almost apneic breathing and had required some bag mask ventilation. With adequate resuscitation, however, he had regained a normal mental status. The patient reported continuing burning and some epigastric discomfort. He also continued to have episodes of nausea and gagging, but no vomiting. PAST MEDICAL AND SURGICAL HISTORY: 1. End-stage renal disease on hemodialysis Friday, , Friday. 2. Coronary artery disease (CAD) status post coronary artery bypass graft (CABG). 3. Diabetes. 4. Hypertension. 5. Atrial fibrillation status post pacemaker. 6. Chronic obstructive pulmonary disease (COPD). 7. Legally blind. 8. Skin cancer status post resection. 9. Peripheral vascular disease with chronic foot ulcers. 10. Left arm arteriovenous (AV) fistula. 11. Cholecystectomy. FAMILY HISTORY: Noncontributory. SOCIAL HISTORY: Former smoker. Was four pack a day for five years, quite smoking 40 years ago. Previous heavy alcohol use, but has not had any drinks for the past few months. 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 Lives with his daughter currently. HOME MEDICATIONS: - amlodipine - aspirin - Tums - vitamin D - Colace - fluconazole - furosemide 40 mg twice a day - metoprolol - Nystatin - pantoprazole 40 mg twice a day - prednisone taper - Tylenol as needed - Mucinex as needed ALLERGIES: No known drug allergies. PHYSICAL EXAMINATION: VITAL SIGNS: Temperature 96.7, pulse 72, respirations 18, blood pressure 116/59, oxygen saturation 95% on 2 liters nasal cannula. INTAKE AND OUTPUT: In 2.4 liters, out zero reported, although he did have multiple bowel movements overnight. GENERAL: Patient is an elderly male, is lying in bed. He is alert and oriented times three and does not appear to be in any acute respiratory distress. He appears pale, but is not diaphoretic. HEENT: Normocephalic, atraumatic. Pupils are small, reactive to light. Patient is legally blind. There are moist mucous membranes. NECK: Supple. Trachea is midline. No palpable cervical adenopathy. CARDIAC: Regular rate and rhythm. Normal S1, S2 with faint murmur. There is a pacemaker in place. PULMONARY: Slightly diminished breath sounds bilaterally with no significant wheezing, rales or rhonchi noted. ABDOMEN: Soft, nondistended. There is mild tenderness in the epigastric region. There are no palpable masses. EXTREMITIES: There is no significant lower extremity edema noted bilaterally. Patient has various ulcers on his heels as well as his toe. He has diminished pulses in the extremities. He has a left arm fistula with a palpable thrill. LABORATORY DATA: WBC 20.4, hemoglobin 6.2, platelets 165. Chemistry: Sodium 133, potassium 5.1, chloride 95, bicarbonate 30, BUN 95, creatinine 7.3, glucose 215. Troponin 0.04. Albumin 2.6, lactic acid increased at 5.4. ABG: pH 7.315, pCO2 55.4, pO2 38.7. IMAGING: CT angiogram abdomen and pelvis showed atelectasis in the lower lobes with trace bilateral pleural effusions. There is severe bilateral renal atrophy with no hydronephrosis. There are atherosclerotic calcifications in the abdominal aorta and the branches. There is high grade severe stenosis at the origin at the superior mesenteric artery. There is also high grade stenosis in the proximal left superficial femoral artery and the proximal right superficial femoral artery. ASSESSMENT AND PLAN: Mr. Jackson is an 80-year-old male with a past medical history of coronary artery disease (CAD) status post coronary artery bypass graft (CABG), hypertension, diabetes, atrial fibrillation, end-stage renal disease on hemodialysis, peripheral vascular disease and chronic obstructive pulmonary disease (COPD), who presented with complaints of lightheadedness and bright red blood per rectum. Patient had a recent hospitalization for COPD exacerbation and pneumonia and he was treated with antibiotics and a steroid taper. Shortly after being discharged from the hospital, he was noticing episodes of loose stool and on the day of his admission, he had a presyncopal episode where he had slid off the toilet. Initially, patient had mild anemia and a mild lactic acidosis. Over the course of the afternoon and evening, however, he had multiple episodes of large bowel movements with maroon and sometimes more bright red bloody bowel movements. He also had a presyncopal episode earlier in the evening and was given IV fluid. He had worsening lactic acidosis and was also more hypotensive overnight. He was ordered 2 units of packed red blood cells with a slow transfusion and he continued to have episodes of bloody bowel movements and then developed hemorrhagic shock. He was started on Levophed and transferred to the ICU. Critical care was then consulted and patient was recommended to have more rapid transfusion and ordered for an additional at least 2 units of packed red blood cells with the possibility of a third unit, depending on if we were able to get him off the pressors. He was also ordered for 2 units of fresh frozen plasma. This morning, after receiving his additional 2 units of packed red blood cells and 2 units of fresh frozen plasma, he was weaned off of the Levophed. Patent's mental status had also improved, as he was initially somewhat lethargic and had almost been apneic at times. 1. Acute GI bleed. a. Patient was seen with Dr. Johnson at the bedside earlier this morning together. A nasogastric (NG) tube was placed and there was lavage, which showed mucus, but no evidence of blood with the lavage. Patient is therefore suspected to have a lower GI bleed versus an upper GI bleed, despite his complaints of epigastric pain and nausea, which is likely at this point due to severe reflux and gastroesophageal reflux disease (GERD). b. A prior history of lower GI bleed in the past and suspect this is the acute source of his bleeding. He did have a CT angiogram, which did not show any evidence of acute bleeding, but he is ordered now for a nuclear medicine scan for further evaluation of bleeding, as per GI. c. Will continue patient on Protonix twice a day and sucralfate for now. d. Patient will be kept nothing by mouth with a plan later on for esophagogastroduodenoscopy (EGD). e. Patient has been given a total of 4 units packed red blood cells now as well as 2 units of fresh frozen plasma. As he does have severe uremia with his end-stage renal disease and with the possibility of dilutional decrease in his platelets, as evidenced on his platelets trending down, we will give him an additional 1 unit of platelets. If there is continued active bleeding, can also consider desmopressin given the uremia and suspicion of uremic dysfunction with his platelets as well. f. Given his multiple units of packed red blood cells within a short time period, will also check ionized calcium, but suspect he will need calcium repletion. g. Will also check disseminated intravascular coagulation (DIC) panel as well, as he may need further coagulation factor repletion. h. Will continue to trend hemoglobin and hematocrit (H and H). His hemoglobin will lag behind active clinical bleeding status. Of more importance would be development of hypotension and orthostatic hypotension in particular, in that case, or more rapid obvious bleeding would transfuse packed red blood cells without waiting for his H and H. i. Patient does have 20 gauge peripheral IVs. However, we will place a central line access with a Trialysis catheter, not only for access for rapid transfusion of blood products if needed, but also for pressors if needed, although as stated, the pressors would be temporary as with hemorrhagic shock, the treatment would not be vasopressors but instead adequate blood product repletion. The Trialysis catheter would also have the benefit of allowing the patient to have dialysis via that access instead of his fistula, if needed. 2. History of coronary artery disease (CAD) status post coronary artery bypass graft (CABG). Patient also has history of atrial fibrillation and is status post pacemaker. a. Given his history of coronary artery disease and with the evidence of peripheral vascular disease and stenosis on his CT angiogram, there is concern for ischemia, either demand ischemia with his cardiac disease or potential development of mesenteric ischemia with his hypotension and shock. b. Will continue to trend his lactic acid. It was elevated, likely in the setting of his hemorrhagic shock, but will repeat now after he has been adequately resuscitated. c. Will also check troponins and monitor his EKG for any concerning ischemic changes. 3. End-stage renal disease on hemodialysis Friday, , Friday. a. Nephrology has been consulted to help manage his hemodialysis. Will discuss with nephrology about his new Trialysis catheter, as it can be used for dialysis if there is concern about hemodynamic instability and he may potentially need continuous renal replacement therapy (CRRT) instead of regular hemodialysis. b. Patient does have hyperkalemia in the setting of end-stage renal disease. There is the possible component from hemolysis from transfusion. We need to monitor closely. He does have severe uremia as well related to his renal failure, which may be contributing to some of his dysfunctional platelets and bleeding. 4. History of chronic obstructive pulmonary disease (COPD) and recent admission for pneumonia status post antibiotics. Patient does have leukocytosis although he has remained afebrile and his lung imaging from his CT abdomen and pelvis showed more atelectasis rather than focal opacities. Suspect the leukocytosis is reactive from his steroid use and perhaps from his acute GI bleed. Will continue to monitor. Currently off of antibiotics. He does have some chronic ulcers in his lower extremities, although they do not appear to have any significant cellulitis currently. There is a low threshold given his renal failure, however, for antibiotics. If there is worsening leukocytosis or fever, would start empiric treatment with antibiotics. a. Will continue with nasal cannula oxygen supplementation to maintain oxygen saturation about 90%. Will check an ABG again today. b. Patient does not have evidence today currently of significant wheezing and does not report significant shortness of breath. Will discontinue his prednisone that he was finishing up the taper and will start nebulized bronchodilators. Deep venous thrombosis (DVT) prophylaxis. Thromboembolism deterrent (TEDs) stockings and sequential compression devices (SCDs). GI prophylaxis. Protonix. CODE STATUS: DO NOT RESUSCITATE (DNR) with a trial intubation. Total critical care time spent not including any procedures approximately 1 hour 55 minutes. MTDD
--- NOTE | 2020-10-18 09:52 | RO ---
OPERATIVE NOTE DATE OF OPERATION: 10/17/2020 Hemodialysis catheter procedure note INDICATION: Vascular access. PRE-PROCEDURE DIAGNOSES: 1. Hemorrhagic shock. 2. Renal failure. POST-PROCEDURE DIAGNOSIS: 1. Hemorrhagic shock. 2. Renal failure. SURGEON: Zuleika Elder MD CONSENT: The procedure was performed emergently and permission was implied due to the emergent nature of this procedure. DESCRIPTION OF PROCEDURE: A central line insertion practices form was completed by an independent observer. A time-out was performed prior to the procedure. Full sterile technique was maintained throughout the procedure including surgical cap, mask, protective eyewear, full gown and sterile gloves. The patient was placed supine. The right groin region was prepped using chlorhexidine scrub and draped in sterile fashion using a full drape and a sterile probe cover employed. The right femoral vein was identified using ultrasound. Anesthesia was achieved over the vein using 1% lidocaine. Using real-time [id number] guidance, the introducer needle was inserted into the right femoral vein under direct ultrasound visualization. Venous blood was withdrawn. The syringe was removed, and a guidewire was advanced into the introducer needle. The introducer needle was removed over the guidewire. A small incision was made at the skin surface with a scalpel, and a dilator was exchanged over the guidewire. After appropriate double dilation was obtained, the dilator was exchanged over the wire for a trialysis hemodialysis catheter. The wire was removed, and the catheter was sutured in place. A sterile chlorhexidine-impregnated dressing was placed over the catheter at the insertion site. The patient tolerated the procedure without any hemodynamic compromise. At time of procedure completion, all ports were aspirated and flushed properly. Heparin was instilled in the ports. Estimated blood loss is less than 3 mL. MTDD
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
[2020-10-20] MEDS ORDERED: predniSONE 10 MG TAB PO SCH (09:00)
== END 2020-10-17 19:55 | disposition short-term general hospital (02) | DRG 377 ==
LOC: M ED 10:02 → M ED INP 14:06 → ENRESERV 14:40 → M PCU 16:38 → M ICU 10-17 04:32
PROVIDERS: ADMIT Internal Medicine; ATTEND Internal Medicine
PROC: 30233N1 Transfusion of Nonautologous Red Blood Cells into Peripheral Vein, Percutaneous Approach (ICD-10-PCS; 2020-10-16)
PROC: 5A1D70Z Performance of Urinary Filtration, Intermittent, Less than 6 Hours Per Day (ICD-10-PCS; 2020-10-17)
PROC: 06HM33Z Insertion of Infusion Device into Right Femoral Vein, Percutaneous Approach (ICD-10-PCS; 2020-10-17)
PROC: 30233K1 Transfusion of Nonautologous Frozen Plasma into Peripheral Vein, Percutaneous Approach (ICD-10-PCS; 2020-10-17)
PROC: 30233R1 Transfusion of Nonautologous Platelets into Peripheral Vein, Percutaneous Approach (ICD-10-PCS; 2020-10-17)
PROC: 0DB38ZX Excision of Lower Esophagus, Via Natural or Artificial Opening Endoscopic, Diagnostic (ICD-10-PCS; principal; 2020-10-17 07:06)
DX: K62.5 Hemorrhage of anus and rectum (principal); R57.8 Other shock; N18.6 End stage renal disease; K55.1 Chronic vascular disorders of intestine; E87.2 Acidosis; B37.0 Candidal stomatitis; I12.0 Hypertensive chronic kidney disease with stage 5 chronic kidney disease or end stage renal disease; N25.81 Secondary hyperparathyroidism of renal origin; L97.429 Non-pressure chronic ulcer of left heel and midfoot with unspecified severity; D62 Acute posthemorrhagic anemia; I95.3 Hypotension of hemodialysis; I95.89 Other hypotension; E11.22 Type 2 diabetes mellitus with diabetic chronic kidney disease; I48.91 Unspecified atrial fibrillation; J44.9 Chronic obstructive pulmonary disease, unspecified; E11.51 Type 2 diabetes mellitus with diabetic peripheral angiopathy without gangrene; E11.622 Type 2 diabetes mellitus with other skin ulcer; L97.529 Non-pressure chronic ulcer of other part of left foot with unspecified severity; E87.5 Hyperkalemia; D63.1 Anemia in chronic kidney disease; Z95.1 Presence of aortocoronary bypass graft; Z66 Do not resuscitate; I25.10 Atherosclerotic heart disease of native coronary artery without angina pectoris; H54.8 Legal blindness, as defined in USA; K21.00 Gastro-esophageal reflux disease with esophagitis, without bleeding; Z99.2 Dependence on renal dialysis; Z79.899 Other long term (current) drug therapy; Z87.891 Personal history of nicotine dependence; Z90.49 Acquired absence of other specified parts of digestive tract; Z95.0 Presence of cardiac pacemaker; Z85.828 Personal history of other malignant neoplasm of skin; Z79.52 Long term (current) use of systemic steroids; Z79.82 Long term (current) use of aspirin